=== PATIENT | female | born 1950 | race Caucasian/White ===

== ENCOUNTER → 2016-06-07 | Outpatient (CLI) | payer BC ==
[~2016-06-07] MED LIST: ALBU1AER9 INH; ALPR-411 PO; CARV12.52 PO; CHOL100010 PO; CLR/5 PO; CYAN50TA2 PO; FLUT44AE INH; HYDR25TA4 PO; HYOS1TAB PO; MRC50 PO; NXM/40 PO; SULF500T36 PO
[2016-06-07 16:59] LABS: FERRITIN 28.4 ng/ml (8.0-388.0)
== END | disposition home or self-care (01) ==
LOC: C.LABBC 15:08
PROVIDERS: ATTEND Family Medicine
DX: R71.8 Other abnormality of red blood cells (principal)

== ENCOUNTER → 2016-08-04 | Outpatient (CLI) | payer BC ==
[2016-08-04 11:16] LABS: BLOOD UREA NITROGEN 7 mg/dl (7-18); BUN/CREATININE RATIO 9.4 (10-20); CALCIUM 8.8 mg/dl (8.5-10.1); CARBON DIOXIDE 26 mmol/L (21-32); CHLORIDE 107 mmol/L (98-107); CREATININE 0.72 mg/dl (0.60-1.20); GLUCOSE 114 mg/dl (70-99); SODIUM 141 mmol/L (136-145)
[2016-08-04 11:26] LABS: THYROID STIMULATING HORMONE 0.995 uIu/ml (0.300-4.500)
[2016-08-12 07:48] LABS: O&P SOURCE OTHER-STOOL
== END | disposition home or self-care (01) ==
LOC: C.LABBC 08:18
PROVIDERS: ATTEND Internal Medicine Gastroenterology
DX: K50.90 Crohn's disease, unspecified, without complications (principal); R73.01 Impaired fasting glucose; R53.83 Other fatigue; D70.9 Neutropenia, unspecified

== ENCOUNTER → 2016-08-08 | Outpatient (CLI) | payer BC ==
--- NOTE | 2016-08-08 15:36 | DIAGNOSTIC IMAGING REPORT ---
ULTRASOUND OF THE THYROID GLAND CLINICAL HISTORY: Neck fullness. COMPARISON STUDY: No priors. TECHNIQUE: Real-time, grayscale, and color flow sonography of the thyroid gland is performed utilizing a high-frequency linear transducer. Images are reviewed in the transverse and longitudinal planes. FINDINGS: Right lobe: The right lobe of the thyroid gland is normal in size and homogeneous in echotexture, measuring 4.4 x 1.6 x 1.5 cm. A hypoechoic nodule in the lower pole measures 4 mm. Left lobe: The left lobe of the thyroid gland is normal in size and homogeneous in echotexture, measuring 5.2 x 1.7 x 1.5 cm. A hiatal nodule in the lower pole measures 1.1 x 0.9 x 0.9 cm. Additional hypoechoic nodules in the left lobe measure up to 5 mm. Isthmus: The thyroid isthmus is normal in appearance and measures 0.5 cm in AP diameter. IMPRESSION: 1. The thyroid gland is normal in size and homogeneous in echotexture. 2. Bilateral low suspicion thyroid nodules as above. Precautionary one-year follow-up ultrasound is recommended for reassessment. Electronically signed by: Donell Painter M.D. 08/08/2016 3:35 PM Dictated Date/Time: 08/08/2016 3:34 PM
== END | disposition home or self-care (01) ==
LOC: C.ULTR 14:18
PROVIDERS: ATTEND Family Medicine
DX: R22.1 Localized swelling, mass and lump, neck (principal); E04.2 Nontoxic multinodular goiter

== ENCOUNTER → 2016-12-16 | Outpatient (CLI) | payer BC | END | disposition home or self-care (01) | LOC: C.PAPS 14:15 | PROVIDERS: ATTEND Obstetrics & Gynecology | DX: Z12.4 Encounter for screening for malignant neoplasm of cervix (principal); N95.2 Postmenopausal atrophic vaginitis ==

== ENCOUNTER → 2017-02-02 | Outpatient (CLI) | payer BC ==
--- NOTE | 2017-02-02 15:39 | MAMMOGRAPHY REPORT ---
BILATERAL DIGITAL SCREENING MAMMOGRAM TOMOSYNTHESIS WITH CAD: 02/02/2017 CLINICAL HISTORY: Routine screening. Patient has no complaints. TECHNIQUE: Breast tomosynthesis in addition to standard 2D mammography was performed. Current study was also evaluated with a Computer Aided Detection (CAD) system. COMPARISON: Comparison is made to exams dated: 12/10/2015 mammogram, 10/17/2014 mammogram, 10/16/2013 m ammogram, 02/15/2013 mammogram, 06/25/2012 mammogram, and 06/19/2012 mammogram - [facility] enter. BREAST COMPOSITION: There are scattered areas of fibroglandular density in both breasts. FINDINGS: The parenchymal pattern is unchanged. No developing mass, architectural distortion or clus ter of suspicious microcalcifications is seen in either breast. IMPRESSION: ACR BI-RADS CATEGORY 2: BENIGN There is no mammographic evidence of malignancy. A 1 year screening mammogram is recommended. The pa tient will receive written notification of the results. Approximately 10% of breast cancers are not detected with mammography. A negative mammographic report should not delay biopsy if a clinically suggestive mass is present. Bianca Oviedo M.D. ay/:02/02/2017 12:55:05 Credit Administration Officer: Luann HELLER(Ian)(Susan)(BD), [facility] letter sent: Normal 1/2 BI-RADS Code: ACR BI-RADS Category 2: Benign
== END | disposition home or self-care (01) ==
LOC: C.MAMM 12:29
PROVIDERS: ATTEND Obstetrics & Gynecology
DX: Z12.31 Encounter for screening mammogram for malignant neoplasm of breast (principal)

== ENCOUNTER → 2018-01-05 | Outpatient (CLI) | payer BC ==
[2018-01-05 10:55] LABS: HEMATOCRIT 37.2 % (37-47); MEAN CELL VOLUME 92.1 fL (80-100); MEAN CORPUSCULAR HEMOGLOBIN 29.7 pg (25-34); MEAN CORPUSCULAR HGB CONC 32.3 g/dl (32-36); MEAN PLATELET VOLUME 8.9 fL (7.4-10.4); NUCLEATED RED BLOOD CELL ABS 0.02 K/uL (0-0); PLATELET COUNT 344 K/uL (130-400); RED CELL DISTRIBUTION WIDTH CV 18.7 % (11.5-14.5); RED CELL DISTRIBUTION WIDTH SD 63.3 fL (36.4-46.3); WHITE BLOOD COUNT 6.64 K/uL (4.8-10.8)
[2018-01-05 11:12] LABS: BLOOD UREA NITROGEN 10 mg/dl (7-18); CALCIUM 8.6 mg/dl (8.5-10.1); CARBON DIOXIDE 27 mmol/L (21-32); CHOLESTEROL 168 mg/dl (0-200); CREATININE 0.72 mg/dl (0.60-1.20); GLUCOSE 99 mg/dl (70-99); LDL CHOLESTEROL CALCULATED 107 mg/dl; POTASSIUM 4.2 mmol/L (3.5-5.1); SODIUM 137 mmol/L (136-145)
== END | disposition home or self-care (01) ==
LOC: C.LABBC 08:29
PROVIDERS: ATTEND Family Medicine
DX: Z00.00 Encounter for general adult medical examination without abnormal findings (principal); I10 Essential (primary) hypertension

== ENCOUNTER 2020-05-28 18:05 | Inpatient (IN) ==
[2020-05-28] MEDS ORDERED: OPTIRAY 320 125ml IV ONE (18:32)
[2020-05-28 18:34] LABS: Hematocrit (blood only) 38.3 % (37-47); Hemoglobin 11.7 g/dL (12.0-16.0); Mean Corpuscular Hemoglobin 26.7 pg (25-34); Mean Corpuscular Hgb Conc 30.5 g/dL (32-36); Mean Corpuscular Volume 87.4 fL (80-100); Mean Platelet Volume 8.5 fL (7.4-10.4); Platelet Count 429 K/uL (130-400); RDW Coefficient of Variation 16.4 % (11.5-14.5); RDW Standard Deviation 52.9 fL (36.4-46.3); Red Blood Count 4.38 M/uL (4.2-5.4); White Blood Count 6.34 K/uL (4.8-10.8)
[2020-05-28 18:37] LABS: iSTAT Creatinine 0.7 mg/dl (0.6-1.3); iSTAT Hemoglobin 13.3 g/dl (12.0-16.0); iSTAT Ionized Calcium 1.25 mmol/l (1.12-1.32); iSTAT Potassium 3.7 mmol/L (3.3-5.0)
[2020-05-28 18:45] LABS: INR 1.1 (0.9-1.1); Partial Thromboplastin Ratio 1.1; Partial Thromboplastin Time 31.6 Seconds (21.0-31.0); Prothrombin Time 11.8 Seconds (9.0-12.0)
--- NOTE | 2020-05-28 18:48 | CT Scan Report ---
UNENHANCED CT OF THE BRAIN; CT ANGIOGRAM OF THE BRAIN; CT ANGIOGRAM OF THE NECK CLINICAL HISTORY: Strokelike symptoms. COMPARISON STUDY: CT scan of the paranasal sinuses dated 04/03/2019. TECHNIQUE: Unenhanced axial CT scan of the brain is performed. Subsequently, following the IV adminis tration of 120 of [address] 320, CT angiogram of the head and neck was performed from the aortic arch t o the vertex. Images are reviewed in the axial, sagittal, and coronal planes. 3-D MIPS images are cre ated and assessed. IV contrast was administered without complication. All measurements were calculate d based on NASCET criteria. A dose lowering technique was utilized adhering to the principles of ALA RA. CT DOSE: 1068.80 mGy.cm FINDINGS: Brain parenchyma: The brain parenchyma is normal in appearance. There is no hemorrhage, mass effect, or evidence of acute territorial ischemia by CT criteria. There is no evidence of enhancing mass lesi on on the angiogram phase images. The ventricles, sulci, and cisterns are normal in configuration. Gr ay-white matter differentiation is preserved. No extra-axial fluid collection is seen. Thoracic aorta: There is mild atherosclerotic calcification of the thoracic aorta. Visualized portion s of the thoracic aorta are normal in caliber. The aortic arch demonstrates standard 3-vessel anatomy . Right carotid arterial system: The right common carotid artery is widely patent, as are the right int ernal and external carotid arteries. Left carotid arterial system: The left common carotid artery is widely patent, as are the left international student counselor al and external carotid arteries. Mild plaque is seen in the carotid bulb. Vertebral arteries: The vertebral arteries are widely patent bilaterally and codominant. Subclavian arteries: Widely patent bilaterally. Intracranial vasculature: There is atherosclerotic calcification of the cavernous carotid arteries. T here is a large right posterior communicating artery. The internal carotid arteries are patent at the skull base, as are the anterior and middle cerebral arteries bilaterally. The vertebrobasilar system and posterior cerebral arteries are widely patent. The right P1 segment is diminutive. The vertebral arteries are codominant. There is no aneurysm, high-grade stenosis, or focal vessel cut off seen thr oughout the intracranial circulation. Jugular veins: Patent bilaterally. Dural sinuses: There are filling defects that likely represent nonocclusive thrombus identified withi n the posterior aspect of the superior sagittal sinus, best seen on image #194. There is also likely nonocclusive thrombus within the distal right transverse sinus and the right sigmoid sinus seen on ax ial images #39 through #66. The remaining dural sinuses are clear. Lung apices: Partially visualized upper lobe lung parenchyma appears clear. Soft tissues: The visualized pharyngeal soft tissues are normal in appearance noting angiographic pha se technique. The oropharyngeal airway appears widely patent. Low-attenuation thyroid nodules measure up to 9 mm. The salivary glands are normal in appearance. No cervical lymphadenopathy is seen. Skeletal structures: The skeletal structures are osteopenic. The calvarium appears intact. The cervic al spine is maintained noting multilevel spondylosis. No lytic or blastic lesion is seen. Orbits: The bony orbits are intact. Orbital contents are normal as imaged. Sinuses and mastoids: There is mild mucosal thickening in the right maxillary antrum. Trace mucosal t hickening is seen in the left maxillary antrum. The remaining paranasal sinuses are clear. The mastoi d air cells are well pneumatized. IMPRESSION: 1. There is no hemorrhage, mass effect, or evidence of acute territorial ischemia by CT criteria. 2. Unremarkable CT angiogram of the intracranial arteries. 3. Unremarkable CT angiogram of the neck. 4. There are filling defects within the dorsal aspect of the superior sagittal sinus, the right trans verse sinus, and the right sigmoid sinus which likely represent nonocclusive thrombus. This may be ch ronic as there is apparent recanalization throughout the suspected thrombus. ACT 112: Negative or not required by law. Electronically signed by: Donell Painter M.D. 05/28/2020 6:47 PM
--- NOTE | 2020-05-28 18:49 | Emergency Department Note ---
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 (1.4-6.5) K/uL Total Absolute Neuts (1.4-6.5) K/uL Lymphocytes # (Manual) (1.2-3.4) K/uL Reactive Lymphs # K/uL Total Abs Lymphocytes (1.2-3.4) K/uL Monocytes # (Manual) (0.11-0.59) K/uL Eosinophils # (Manual) (0-0.5) K/uL RBC Morphology PT (9.0-12.0) Seconds INR (0.9-1.1) APTT (21.0-31.0) Seconds PTT Ratio POC Sodium (135-144) mmol/L Sodium (136-145) mmol/L POC Potassium (3.3-5.0) mmol/L Potassium (3.5-5.1) mmol/L POC Chloride (101-112) mmol/L Chloride (98-107) mmol/L Carbon Dioxide (21-32) mmol/L POC Total CO2 (24-31) mmol/L Anion Gap (3-11) POC Anion Gap (16-25) mmol/L POC BUN (7-18) mg/dl BUN (7-18) mg/dl Creatinine (0.6-1.2) mg/dl POC Creatinine (0.6-1.3) mg/dl Est Cr Clr Drug Dosing ml/min Est GFR ( Amer) Est GFR (Non-Af Amer) BUN/Creatinine Ratio (10-20) Glucose (70-99) mg/dl POC Glucose (70-99) mg/dl POC Glucose (other) (70-99) mg/dl Calcium (8.5-10.1) mg/dl POC Ioniz Calcium Deshawn (1.12-1.32) mmol/l Magnesium (1.8-2.4) mg/dl Total Bilirubin (0.2-1) mg/dl AST (15-37) U/L ALT (12-78) U/L Alkaline Phosphatase (45-117) U/L Troponin I (0-0.045) ng/ml Total Protein (6.4-8.2) gm/dl Albumin (3.4-5.0) gm/dl Globulin (2.5-4.0) gm/dl Albumin/Globulin Ratio (0.9-2) SARS-CoV-2 Ag (Rapid) Negative (Negative) Blood Type Antibody Screen Imaging Data Radiologist's Impression: UNENHANCED CT OF THE BRAIN; CT ANGIOGRAM OF THE BRAIN; CT ANGIOGRAM OF THE NECK CLINICAL HISTORY: Strokelike symptoms. COMPARISON STUDY: CT scan of the paranasal sinuses dated 04/03/2019. TECHNIQUE: Unenhanced axial CT scan of the brain is performed. Subsequently, following the IV administration of 120 of Optiray 320, CT angiogram of the head and neck was performed from the aortic arch to the vertex. Images are reviewed in the axial, sagittal, and coronal planes. 3-D MIPS images are created and assessed. IV contrast was administered without complication. All measurements were calculated based on NASCET criteria. A dose lowering technique was utilized adhering to the principles of ALARA. CT DOSE: 1068.80 mGy.cm FINDINGS: Brain parenchyma: The brain parenchyma is normal in appearance. There is no hemorrhage, mass effect, or evidence of acute territorial ischemia by CT criteria. There is no evidence of enhancing mass lesion on the angiogram phase images. The ventricles, sulci, and cisterns are normal in configuration. Reagan- white matter differentiation is preserved. No extra-axial fluid collection is seen. Thoracic aorta: There is mild atherosclerotic calcification of the thoracic aorta. Visualized portions of the thoracic aorta are normal in caliber. The aortic arch demonstrates standard 3-vessel anatomy. Right carotid arterial system: The right common carotid artery is widely patent, as are the right internal and external carotid arteries. Left carotid arterial system: The left common carotid artery is widely patent, as are the left internal and external carotid arteries. Mild plaque is seen in the carotid bulb. Vertebral arteries: The vertebral arteries are widely patent bilaterally and codominant. Subclavian arteries: Widely patent bilaterally. Intracranial vasculature: There is atherosclerotic calcification of the cavernous carotid arteries. There is a large right posterior communicating artery. The internal carotid arteries are patent at the skull base, as are the anterior and middle cerebral arteries bilaterally. The vertebrobasilar system and posterior cerebral arteries are widely patent. The right P1 segment is diminutive. The vertebral arteries are codominant. There is no aneurysm, high- grade stenosis, or focal vessel cut off seen throughout the intracranial circulation. Jugular veins: Patent bilaterally. Dural sinuses: There are filling defects that likely represent nonocclusive thrombus identified within the posterior aspect of the superior sagittal sinus, best seen on image #194. There is also likely nonocclusive thrombus within the distal right transverse sinus and the right sigmoid sinus seen on axial images #39 through #66. The remaining dural sinuses are clear. Lung apices: Partially visualized upper lobe lung parenchyma appears clear. Soft tissues: The visualized pharyngeal soft tissues are normal in appearance noting angiographic phase technique. The oropharyngeal airway appears widely patent. Low-attenuation thyroid nodules measure up to 9 mm. The salivary glands are normal in appearance. No cervical lymphadenopathy is seen. Skeletal structures: The skeletal structures are osteopenic. The calvarium appears intact. The cervical spine is maintained noting multilevel spondylosis. No lytic or blastic lesion is seen. Orbits: The bony orbits are intact. Orbital contents are normal as imaged. Sinuses and mastoids: There is mild mucosal thickening in the right maxillary antrum. Trace mucosal thickening is seen in the left maxillary antrum. The remaining paranasal sinuses are clear. The mastoid air cells are well pneumatized. IMPRESSION: 1. There is no hemorrhage, mass effect, or evidence of acute territorial ischemia by CT criteria. 2. Unremarkable CT angiogram of the intracranial arteries. 3. Unremarkable CT angiogram of the neck. 4. There are filling defects within the dorsal aspect of the superior sagittal sinus, the right transverse sinus, and the right sigmoid sinus which likely represent nonocclusive thrombus. This may be chronic as there is apparent recanalization throughout the suspected thrombus. ACT 112: Negative or not required by law. Electronically signed by: Donell Painter M.D. 05/28/2020 6:47 PM Dictated: 05/28/201830 Transcribed: 05/28/201830 SINGLE VIEW CHEST CLINICAL HISTORY: Strokelike symptoms. FINDINGS: An AP, portable, upright chest radiograph is compared to study dated 11/01/2019 and correlated with chest CT dated 08/07/2018. The heart is top normal for projection. Chronic interstitial thickening is similar to previous. There is mild bibasilar atelectasis. No airspace consolidation or large pleural effusion is identified. No pneumothorax is seen. The skeletal structures are osteopenic. The bony thorax is grossly intact. IMPRESSION: No acute cardiopulmonary abnormality. ACT 112: Negative or not required by law. Electronically signed by: Donell Painter M.D. 05/28/2020 7:09 PM Dictated: 05/28/201907 Transcribed: 05/28/201907 MRI OF THE BRAIN WITHOUT IV CONTRAST CLINICAL HISTORY: Headache. Delirium. COMPARISON STUDY: CT of the brain performed the same day 05/28/2020. TECHNIQUE: MRI of the brain was performed utilizing various T1 and T2-weighted sequences in the axial, sagittal, and coronal planes. IV contrast was not administered for this examination. The examination is degraded by motion artifact. FINDINGS: Brain parenchyma: There is age-related involutional change noting minimal microangiopathic disease. There is no hemorrhage or mass effect. There is no restricted diffusion to suggest acute ischemia. Reagan-white matter differenti ation is preserved. No extra-axial fluid collection is seen. The cerebellar tonsils are normal in configuration. Ventricles, sulci, and cisterns: Prominent secondary to involutional change. Pituitary and sella: Unremarkable. Intracranial vasculature: Normal arterial flow voids are maintained at the skull base. There is loss of normal flow void within the right transverse and sigmoid sinuses. Orbits: The bony orbits are grossly intact. Orbital contents are normal in appearance. Sinuses and mastoids: Mild mucosal thickening is noted in the right maxillary antrum and there is trace mucosal thickening in the left maxillary antrum. The remaining paranasal sinuses and the mastoid air cells are clear. Calvarium: Unremarkable. Cervical cord: Partially visualized cervical spinal cord is normal in morphology and signal intensity. IMPRESSION: 1. There is no hemorrhage, mass effect, or evidence of acute ischemia noting a motion degraded examination. 2. There is loss of the normal flow void within the right transverse and sigmoid sinuses. This likely represents age indeterminant sinus thrombus as detailed on prior examinations. ACT 112: Negative or not required by law. Electronically signed by: Donell Painter M.D. 05/28/2020 9:19 PM Dictated: 05/28/202111Transcribed: 05/28/202111 MR VENOGRAM OF THE BRAIN CLINICAL HISTORY: Headache. Delirium. Sinus thrombosis. COMPARISON STUDY: CT angiogram of the brain dated 05/28/2020. TECHNIQUE: Unenhanced sagittal MR venogram of the brain is performed. 3-D reformats are created and assessed. FINDINGS: There is irregularity seen throughout the superior sagittal sinus, greatest posteriorly. Additionally, there is marked attenuation of the right transverse and sigmoid sinuses. The left transverse sinus and the left sigmoid sinus are clear. The right internal jugular vein is patent. The left internal jugular vein is not well-visualized. IMPRESSION: There is irregularity throughout the superior sagittal sinus and marked attenuation of flow within the right transverse and sigmoid sinuses. This was much better characterized on today's CT angiogram and likely represents thrombus. Chronic thrombus is favored based on the CT findings. Clinical correlation will be essential. Electronically signed by: Donell Painter M.D. 05/28/2020 8:55 PM Dictated: 05/28/202051Transcribed: 05/28/202051 ECG Data Indication: + weakness Rate (beats per minute): 95 Rhythm: + normal sinus ECG Intervals/blocks: + Normal QRS, + Normal CT and + Normal QT-c ECG ST segments: + Normal ST segments [facility] Narrative 1810: The patient was evaluated in room B1. A complete history and physical exam was performed. Based off the patient's H&P differential diagnosis included but was not limited to acute CVA, ICH, carotid artery dissection, vertebral artery dissection, hypertensive encephalopathy, subarachnoid hemorrhage, or acute anxiety. Code stroke called and patient taken to CT. 1842: CT is reviewed by me which showed no large ICH or carotid dissection. Formal radiology reads are pending. Discussed the case with Dr. Margoth adams who will evaluate the patient. 1857: Dr. Painter radiology called and stated that there are filling defects in the dorsal aspect of the superior sagittal sinus, right transverse sinus, and right sigmoid sinus which likely represent a nonocclusive thrombus there is also apparent recanalization through the suspected thrombus. CT of the head showed no mass-effect, hemorrhage, or territorial ischemia in the CT angiogram of the head and neck arteries are within normal limits. 1912: Discussed the CTA findings with Dr. Margoth adams who requests that a MRI brain with and without contrast be conducted in addition to an MRV of the brain. Orders have been placed. Patient is reporting continued headache morphine 2 mg ordered for the patient. Margoth adams says he will evaluate the patient shortly. 2005: Discussed with Dr. Margoth adams who states no TPA at this time. He states he will take a look at the CT angio and MRI images after they are done and we can further discuss if the sinus thromboses are acute or chronic and if any further intervention needs to be done. 2214: Patient remains hypertensive. MRI of the brain is within normal limits. MRV of the brain is more consistent with chronic nonocclusive thrombus as opposed to acute sinus thrombus. I discussed the findings with Rhiquine Weogufka telestroke and both he and I agreed that the patient's symptoms today are not likely due to the chronic thrombus and more likely due to a hypertensive encephalopathy with her hypertension being uncontrolled. No need for anticoagulation of the chronic thrombus per telestroke neurologist. We will try to get a better control of the patient's blood pressure with labetalol boluses. If labetalol boluses are unsuccessful with controlling the patient's blood pressure then we will switch to Cardene. 2346: Blood pressure improved status post multiple boluses of labetalol. We will hold off on Cardene at this point. I discussed the case with Dr. Ma [facility] hospitalist who agrees to admit the patient. Impression & Plan Encephalopathy, hypertensive, Transverse sinus thrombosis Discharge Plan Visit Data Chief Complaint: Headache Stated Complaint: HEAD HURTS, MUSCLE PROBLEMS ED Provider: Guillaume Garza Discharge Problem: Encephalopathy, hypertensive, Transverse sinus thrombosis Patient Disposition: Admitted As Inpatient Forms Stand Alone Forms: [facility] Prescriptions Prescriptions: No Action hydrocortisone 2.5 % cream 1 appln topical DAILY PRN (Reason: itching) Qty: 1 RF: 0 Entyvio 300 mg recon soln See Rx Instructions IV .COMPLEX RF: 0 lansoprazole [Prevacid] 30 mg capsule,delayed release(DR/EC) 30 mg PO QAM Qty: 90 RF: 1 mercaptopurine 50 mg tablet 75 mg PO HS Qty: 135 RF: 1 ondansetron HCl [Zofran] 4 mg tablet 4 mg PO Q8H PRN (Reason: nausea and vomiting) Qty: 30 RF: 1 Breo Ellipta 200-25 mcg/dose blister with device 1 inh INH QAM Qty: 3 RF: 1 albuterol sulfate [ProAir HFA] 90 mcg/actuation HFA aerosol inhaler 1 - 2 puff INHALATION Q4 PRN (Reason: Shortness Of Breath Or Wheezing) Qty: 18 RF: 2 alprazolam [Xanax] 0.5 mg tablet 0.5 mg PO BID PRN (Reason: Anxiety) Qty: 30 RF: 0 carvedilol 12.5 mg tablet 12.5 mg PO BID Qty: 180 RF: 3 sulfamethoxazole-trimethoprim [Bactrim DS] 800-160 mg tablet 1 tab PO BID 5 Days Qty: 10 RF: 1 loratadine [Claritin] 10 mg Tablet 10 mg PO DAILY PRN (Reason: Congestion) RF: 0 cholecalciferol (vitamin D3) [Vitamin D3] 2,000 unit Capsule 2,000 unit PO HS RF: 0 Referrals Referrals: Mar Whitaker MD [Primary Care Provider] -
[2020-05-28 18:53] LABS: Albumin Level 3.5 gm/dl (3.4-5.0); Aspartate Aminotransferase 21 U/L (15-37); BUN Creatinine Ratio 14.9 (10-20); Blood Urea Nitrogen 11 mg/dl (7-18); Calcium 9.2 mg/dl (8.5-10.1); Carbon Dioxide 29 mmol/L (21-32); Chloride 107 mmol/L (98-107); Creatinine Clr Calc Pharmacy 67.4 ml/min; Est GFR (African American) 93.4; Est GFR (Non-African American) 80.6; Glucose 109 mg/dl (70-99); Potassium 3.7 mmol/L (3.5-5.1); Sodium 140 mmol/L (136-145)
[2020-05-28 18:54] LABS: ALC (manual) 3.87 K/uL (1.2-3.4); ANC (manual) 1.63 K/uL (1.4-6.5); Eosinophils # (manual) 0.51 K/uL (0-0.5); Lymphocytes # (manual) 2.07 K/uL (1.2-3.4); Lymphocytes % (manual) 32.7 %; Monocytes # (manual) 0.34 K/uL (0.11-0.59); Monocytes % (manual) 5.3 %; Neutrophils # (manual) 1.63 K/uL (1.4-6.5); Neutrophils % (manual) 25.7 %; RBC Morphology Unremarkable; Reactive Lymphocytes # (manual) 1.79 K/uL; Reactive Lymphocytes % (manual) 28.3 %
[2020-05-28] MEDS ORDERED: MoRPHine SULFATE 2 MG/ML CARP IV STA (18:54)
[2020-05-28] MEDS ORDERED: MoRPHine SULFATE 2 MG/ML CARP ONE (18:56)
[2020-05-28 18:57] LABS: Alanine Aminotransferase 30 U/L (12-78); Albumin Globulin Ratio 0.8 (0.9-2); Alkaline Phosphatase 80 U/L (45-117); Bilirubin,Total 0.4 mg/dl (0.2-1); Globulin 4.3 gm/dl (2.5-4.0); Total Protein 7.8 gm/dl (6.4-8.2); Troponin I < 0.015 ng/ml (0-0.045)
--- NOTE | 2020-05-28 19:11 | XRay Report ---
SINGLE VIEW CHEST CLINICAL HISTORY: Strokelike symptoms. FINDINGS: An AP, portable, upright chest radiograph is compared to study dated 11/01/2019 and correlate d with chest CT dated 08/07/2018. The heart is top normal for projection. Chronic interstitial thicken ing is similar to previous. There is mild bibasilar atelectasis. No airspace consolidation or large p leural effusion is identified. No pneumothorax is seen. The skeletal structures are osteopenic. The b beto thorax is grossly intact. IMPRESSION: No acute cardiopulmonary abnormality. ACT 112: Negative or not required by law. Electronically signed by: Donell Painter M.D. 05/28/2020 7:09 PM
[2020-05-28] MEDS ORDERED: LORazepam 1 MG/2 ML VIAL IV STA ×2 (19:38→21:17)
[2020-05-28] MEDS ORDERED: HYDROmorphone INJ 0.5 MG/0.5 ML SYR IV STA (19:41)
--- NOTE | 2020-05-28 20:56 | Magnetic Resonance Report ---
MR VENOGRAM OF THE BRAIN CLINICAL HISTORY: Headache. Delirium. Sinus thrombosis. COMPARISON STUDY: CT angiogram of the brain dated 05/28/2020. TECHNIQUE: Unenhanced sagittal MR venogram of the brain is performed. 3-D reformats are created and a ssessed. FINDINGS: There is irregularity seen throughout the superior sagittal sinus, greatest posteriorly. Ad ditionally, there is marked attenuation of the right transverse and sigmoid sinuses. The left transve rse sinus and the left sigmoid sinus are clear. The right internal jugular vein is patent. The left i nternal jugular vein is not well-visualized. IMPRESSION: There is irregularity throughout the superior sagittal sinus and marked attenuation of fl ow within the right transverse and sigmoid sinuses. This was much better characterized on today's CT angiogram and likely represents thrombus. Chronic thrombus is favored based on the CT findings. Clini nadine correlation will be essential. Electronically signed by: Donell Painter M.D. 05/28/2020 8:55 PM
[2020-05-28] MEDS ORDERED: LABETALOL HCL IV 5 MG/ML 20ML IV STA ×4 (21:17→22:56)
--- NOTE | 2020-05-28 21:20 | Magnetic Resonance Report ---
MRI OF THE BRAIN WITHOUT IV CONTRAST CLINICAL HISTORY: Headache. Delirium. COMPARISON STUDY: CT of the brain performed the same day 05/28/2020. TECHNIQUE: MRI of the brain was performed utilizing various T1 and T2-weighted sequences in the axial , sagittal, and coronal planes. IV contrast was not administered for this examination. The examinatio n is degraded by motion artifact. FINDINGS: Brain parenchyma: There is age-related involutional change noting minimal microangiopathic disease. T here is no hemorrhage or mass effect. There is no restricted diffusion to suggest acute ischemia. Gra y-white matter differentiation is preserved. No extra-axial fluid collection is seen. The cerebellar tonsils are normal in configuration. Ventricles, sulci, and cisterns: Prominent secondary to involutional change. Pituitary and sella: Unremarkable. Intracranial vasculature: Normal arterial flow voids are maintained at the skull base. There is loss of normal flow void within the right transverse and sigmoid sinuses. Orbits: The bony orbits are grossly intact. Orbital contents are normal in appearance. Sinuses and mastoids: Mild mucosal thickening is noted in the right maxillary antrum and there is tra ce mucosal thickening in the left maxillary antrum. The remaining paranasal sinuses and the mastoid a ir cells are clear. Calvarium: Unremarkable. Cervical cord: Partially visualized cervical spinal cord is normal in morphology and signal intensity . IMPRESSION: 1. There is no hemorrhage, mass effect, or evidence of acute ischemia noting a motion degraded examin ation. 2. There is loss of the normal flow void within the right transverse and sigmoid sinuses. This likely represents age indeterminant sinus thrombus as detailed on prior examinations. ACT 112: Negative or not required by law. Electronically signed by: Donell Painter M.D. 05/28/2020 9:19 PM
[2020-05-28] MEDS ORDERED: ONDANSETRON INJ 2 MG/ML 2 ML VIAL IV STA (21:24)
[2020-05-28] MEDS ORDERED: ASPIRIN CHEW 324 MG PO STA (22:19)
[2020-05-28] MEDS ORDERED: LORazepam 0.5 MG/1 ML VIAL IV STA (23:37)
--- NOTE | 2020-05-28 23:54 | History & Physical Report ---
Date of Service May 28, 2020 Assessment & Plan (1) Encephalopathy, hypertensive: 69yo C female presenting with severe ARIAS, AMS in setting of markedly increased blood pressure. Suspect hypertensive encephalopathy. Patient's initial GCS Score was 15 ( 4 eye, 5 verbal, 6 motor). Slightly worsened during my encounter to GCS of 13 (3 eye, 4 verbal and 6 motor) after receiving multiple doses of Ativan as well as Morphine and Dilaudid. BP improved with administration of IV Labetalol. Goal to decrease BP by 25% of MAP at this time to avoid watershed infarcts BP of 170/90 is acceptable at this time -Admit to PCU -Neuro checks per protocol -Labetalol 10mg IV q 2 hours as needed to maintain target blood pressure -q hourly VS until BP stabilizes -Continue PO Carvedilol -Pain and anxiety management with caution -Tylenol as needed -Fall and aspiration precautions Present on Admission?: Yes (2) Transverse sinus thrombosis: Noted filling defects in the dorsal aspect of the superior sagittal, right transverse and right sigmoid sinus. Thought to be secondary to chronic, nonocclusive thrombus. Code Stroke was initially called in the ER and patient was evaluated by TeleStroke team. Images reviewed and discussed with [facility]. Symptoms not thought to be secondary to chronic venous sinus thrombosis. Anticoagulation not recommended at this time -Continue Neuro checks as above Present on Admission?: Yes (3) Ulcerative colitis: Chronic. -Patient on vedolizumab infusion -Continue Mercaptopurine -Continue Bactrim ppx Present on Admission?: Yes (4) GERD (gastroesophageal reflux disease): Chronic -Continue Prevacid qAM Present on Admission?: Yes (5) Asthma: Chronic. With peripheral eosinophils slightly elevated -Continue Fluticasone/Vilanterol Present on Admission?: Yes (6) Anxiety: Chronic. Patient administered Ativan in ER -Continue Xanax 0.5mg po BID PRN F/E/N - Heplock. Monitor electrolytes. Heart healthy diet with aspiration precautions when mental status improves Ppx - Low risk for DVT Code -Full Dispo - Admit to PCU Present on Admission?: Yes History of Present Illness Chief Complaint: ARIAS Primary Care Provider: Mar Whitaker MD Cathy Byers is a 69yo C female presenting with ARIAS, AMS. Patient has been having ARIAS and muscle pains for the last week. This evening around 1730 she was complaining of a severe headache and was having some difficulty turning on the TV due to confusion. Patient had a headache most of the day today, started after a heated argument with her . She was seen by a chiropracter 2 days ago and had a neck manipulation. On arrival to the ER she was found to be markedly hypertensive at (documented in ER as 278/155) - ranging 175-278 / 89-155. Patient administered IV Labetalol with improvement in BP She is poor historian, confused upon arrival to the ER and somnolent after r eceiving Ativan. History obtained through discussion with ER attending. MRI imaging findings discussed with ER attending and Neurology at [place]. Patient was evaluated by TeleStroke team from [place] prior to admission ER Course: Ativan 1mg, 1mg, 0.5mg IV, Morphine 2mg IV, Dilaudid 0.5mg IV, Labetalol 10mg + 20mg +40mg +60mg IV, Zofran 4mg IV Allergies Allergy/AdvReac Type Severity Reaction Status Date / Time adalimumab [From Humira] Allergy Intermediate RED PATCHES Verified 05/28/20 19:02 ciprofloxacin Allergy Intermediate RASH Verified 05/28/20 19:02 codeine Allergy Intermediate HEART Verified 05/28/20 19:02 PALPATATIONS infliximab Allergy Intermediate RED Verified 05/28/20 19:02 BLOCHES ON CHEST nitrofurantoin Allergy Intermediate VASCULITIS--TOLD Verified 05/28/20 19:02 [From Macrodantin] NOT TO TAKE AGAIN. adhesive AdvReac Mild SORE RED Verified 05/28/20 19:02 SKIN losartan AdvReac Mild COUGH Verified 05/28/20 19:02 lisinopril AdvReac Unknown Cough Verified 05/07/20 12:25 Home Medications Medication Instructions Recorded Confirmed Type cholecalciferol (vitamin D3) 2,000 unit PO HS 08/07/18 05/28/20 History [Vitamin D3] loratadine [Claritin] 10 mg PO DAILY PRN 08/07/18 05/28/20 History hydrocortisone 2.5 % topical cream 1 appln TOPICAL DAILY PRN #1 gm 02/11/19 05/28/20 History alprazolam 0.5 mg tablet 0.5 mg PO BID PRN #30 tab 03/06/20 12/31/20 Rx vedolizumab 300 mg intravenous See Rx Instructions IV .COMPLEX 10/09/19 05/28/20 History solution lansoprazole 30 mg capsule,delayed 30 mg PO QAM #90 cap 11/14/19 05/28/20 Rx release mercaptopurine 50 mg tablet 75 mg PO HS #135 tab 11/14/19 05/28/20 Rx ondansetron HCl 4 mg tablet 4 mg PO Q8H PRN #30 tab 12/11/19 05/28/20 Rx carvedilol 12.5 mg tablet 12.5 mg PO BID #180 tab 01/15/20 05/28/20 Rx fluticasone furoate 200 1 inh INH QAM #3 inhaler 02/17/20 05/28/20 Rx mcg-vilanterol 25 mcg/dose inhalation powder albuterol sulfate 90 mcg/actuation 1 - 2 puff INHALATION Q4 PRN #18 g 04/17/20 05/28/20 Rx aerosol inhaler sulfamethoxazole 800 1 tab PO BID 5 Days #10 tab 05/24/20 05/28/20 Rx mg-trimethoprim 160 mg tablet Past Med/Surg History Medical History Anxiety Asthma Erythema nodosum GERD (gastroesophageal reflux disease) Hypertension Impaired fasting glucose Iron deficiency anemia Leukocytoclastic vasculitis Osteoporosis Paroxysmal supraventricular tachycardia Squamous cell carcinoma Ulcerative colitis Vitamin D deficiency Surgical History H/O removal of cyst Right breast History of colonoscopy History of dilatation and curettage History of esophagogastroduodenoscopy (EGD) History of tonsillectomy S/P knee surgery Right knee S/P laparoscopic hysterectomy Status post Mohs surgery Family History Unknown Cancer Father Esophageal cancer Transient ischemic attack Pulmonary embolism Brother Prostate cancer Mother Hypertension Sister FH: breast cancer in first degree relative Denies family history of Ovarian cancer Myocardial infarction Breast cancer Colorectal cancer Social History Smoking Status: Never smoker Tobacco Type: Cigarettes Cigarettes Per Day: 1984; Second Hand Exposure: No; Do You Dip or Chew Tobacco: No; Tobacco Cessation Education Requested by Patient: No Hx Alcohol Use: No Hx Substance Use: No Preferred Language: Kyrgyz Communication Ability: Impaired Communication Ability Comment: Patient sleepy and not compliant Visual Impairment: Limited Hearing Ability: Normal 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 Beliefs That Will Affect Care: None marital status: Current Living Situation: Spouse current occupational status: retired Other Information That Helps Us Care for You: No Feels Safe at Home: Yes Safety Concerns: Feels Safe At This Time Childhood Exposure to Second-Hand Smoke: No caffeine: Yes during the past year weight has: remained stable Dental Care, Regularly: Yes Physical Activity Frequency: 3-4 Times per Week Seatbelt Use: always Sunscreen Use: Yes Assistive Devices: Contacts Review of Systems Review of Systems: Unobtainable due to reduced consciousness Physical Exam Physical Exam: General: patient somnolent, arousable, opens eyes to verbal command and tactile stimuli, follows simple commands then drifts back to sleep, nontoxic Skin: warm, dry, intact, no rashes or lesions HEENT: NC/AT, PERRL, anicteric sclera, conjunctiva without injection, external ear normal to inspection and nontender, nares patent, moist mucus membranes, dentition intact, no oropharyngeal lesions, neck supple, trachea midline, no LAD, no thyromegaly, no JVD, no papilledema appreciated on limited bedside fundoscopic exam Heart: +S1/S2, regular, no m/r/g Lungs: equal air entry bilaterally, no rales/rhonchi/wheezes Abd: +BS, soft, NT/ND, no masses/organomegaly/ascites Ext: warm, 2+ pulses in UE/LE bilaterally, no clubbing/cyanosis or edema Neuro: somnolent, arousable to verbal and tactile stimuli, able to state name, follows simple commands, moves all extremities Results & Data Results & Data ([facility]) Vital Signs (Past 12 Hours) Vital Signs Temp Pulse Pulse Resp BP BP Pulse Ox 05/28/20 23:48 88 16 179/101 H 98 05/28/20 23:08 76 16 180/76 H 98 05/28/20 22:46 76 20 99 05/28/20 22:45 73 15 223/98 H 99 05/28/20 22:31 72 14 98 05/28/20 22:30 74 15 212/101 H 99 05/28/20 22:21 205/100 H 05/28/20 22:20 76 15 205/100 H 96 05/28/20 22:15 73 18 90 05/28/20 22:03 70 15 229/103 H 90 05/28/20 22:00 77 15 05/28/20 21:46 71 14 92 05/28/20 21:45 71 14 211/98 H 93 05/28/20 21:31 74 13 93 05/28/20 21:30 71 14 212/99 H 95 05/28/20 21:17 76 17 93 05/28/20 21:16 74 16 205/92 H 93 05/28/20 21:15 82 14 94 05/28/20 21:12 75 15 212/169 H 92 05/28/20 21:09 73 17 05/28/20 20:16 73 17 220/102 H 92 05/28/20 20:15 68 17 93 05/28/20 20:01 69 18 95 05/28/20 20:00 63 13 231/116 H 92 05/28/20 19:54 67 15 228/106 H 92 05/28/20 19:46 78 224/106 H 95 05/28/20 19:45 76 95 05/28/20 19:31 77 15 219/113 H 95 05/28/20 19:30 77 18 94 05/28/20 19:16 82 22 227/110 H 96 05/28/20 19:15 82 22 95 05/28/20 19:01 86 17 228/124 H 96 05/28/20 19:00 86 15 96 05/28/20 18:46 87 18 210/127 H 05/28/20 18:45 89 23 05/28/20 18:32 91 H 225/135 H 97 05/28/20 18:31 91 H 05/28/20 18:18 95 H 278/155 H 05/28/20 18:06 37.4 C 109 H 19 215/130 H 95 Laboratory Results Lab Results 05/28/20 05/28/20 05/28/20 Range/Units 18:20 18:23 18:23 WBC 6.34 (4.8-10.8) K/uL RBC 4.38 (4.2-5.4) M/uL Hgb 11.7 L (12.0-16.0) g/dL POC Hgb (12.0-16.0) g/dl Hct 38.3 (37-47) % POC Hct (37-47) % MCV 87.4 (80-100) fL MCH 26.7 (25-34) pg MCHC 30.5 L (32-36) g/dL RDW Std Deviation 52.9 H (36.4-46.3) fL RDW Coeff of Isiah 16.4 H (11.5-14.5) % Plt Count 429 H (130-400) K/uL MPV 8.5 (7.4-10.4) fL Neutrophils % (Manual) 25.7 % Lymphocytes % (Manual) 32.7 % Reactive Lymphs % (Man) 28.3 % Monocytes % (Manual) 5.3 % Eosinophils % (Manual) 8.0 % Neutrophils # (Manual) 1.63 (1.4-6.5) K/uL Total Absolute Neuts 1.63 (1.4-6.5) K/uL Lymphocytes # (Manual) 2.07 (1.2-3.4) K/uL Reactive Lymphs # 1.79 K/uL Total Abs Lymphocytes 3.87 H (1.2-3.4) K/uL Monocytes # (Manual) 0.34 (0.11-0.59) K/uL Eosinophils # (Manual) 0.51 H (0-0.5) K/uL RBC Morphology Unremarkable PT 11.8 (9.0-12.0) Seconds INR 1.1 (0.9-1.1) APTT 31.6 H (21.0-31.0) Seconds PTT Ratio 1.1 POC Sodium (135-144) mmol/L Sodium (136-145) mmol/L POC Potassium (3.3-5.0) mmol/L Potassium (3.5-5.1) mmol/L POC Chloride (101-112) mmol/L Chloride (98-107) mmol/L Carbon Dioxide (21-32) mmol/L POC Total CO2 (24-31) mmol/L Anion Gap (3-11) POC Anion Gap (16-25) mmol/L POC BUN (7-18) mg/dl BUN (7-18) mg/dl Creatinine (0.6-1.2) mg/dl POC Creatinine (0.6-1.3) mg/dl Est Cr Clr Drug Dosing ml/min Est GFR ( Amer) Est GFR (Non-Af Amer) BUN/Creatinine Ratio (10-20) Glucose (70-99) mg/dl POC Glucose 111 H (70-99) mg/dl POC Glucose (other) (70-99) mg/dl Calcium (8.5-10.1) mg/dl POC Ioniz Calcium Deshawn (1.12-1.32) mmol/l Magnesium (1.8-2.4) mg/dl Total Bilirubin (0.2-1) mg/dl AST (15-37) U/L ALT (12-78) U/L Alkaline Phosphatase (45-117) U/L Troponin I (0-0.045) ng/ml Total Protein (6.4-8.2) gm/dl Albumin (3.4-5.0) gm/dl Globulin (2.5-4.0) gm/dl Albumin/Globulin Ratio (0.9-2) SARS-CoV-2 Ag (Rapid) (Negative) Blood Type Antibody Screen 05/28/20 05/28/20 05/28/20 Range/Units 18:23 18:24 18:34 WBC (4.8-10.8) K/uL RBC (4.2-5.4) M/uL Hgb (12.0-16.0) g/dL POC Hgb 13.3 (12.0-16.0) g/dl Hct (37-47) % POC Hct 39 (37-47) % MCV (80-100) fL MCH (25-34) pg MCHC (32-36) g/dL RDW Std Deviation (36.4-46.3) fL RDW Coeff of Isiah (11.5-14.5) % Plt Count (130-400) K/uL MPV (7.4-10.4) fL Neutrophils % (Manual) % Lymphocytes % (Manual) % Reactive Lymphs % (Man) % Monocytes % (Manual) % Eosinophils % (Manual) % Neutrophils # (Manual) (1.4-6.5) K/uL Total Absolute Neuts (1.4-6.5) K/uL Lymphocytes # (Manual) (1.2-3.4) K/uL Reactive Lymphs # K/uL Total Abs Lymphocytes (1.2-3.4) K/uL Monocytes # (Manual) (0.11-0.59) K/uL Eosinophils # (Manual) (0-0.5) K/uL RBC Morphology PT (9.0-12.0) Seconds INR (0.9-1.1) APTT (21.0-31.0) Seconds PTT Ratio POC Sodium 141 (135-144) mmol/L Sodium 140 (136-145) mmol/L POC Potassium 3.7 (3.3-5.0) mmol/L Potassium 3.7 (3.5-5.1) mmol/L POC Chloride 103 (101-112) mmol/L Chloride 107 (98-107) mmol/L Carbon Dioxide 29 (21-32) mmol/L POC Total CO2 29 (24-31) mmol/L Anion Gap 4.0 (3-11) POC Anion Gap 14.0 L (16-25) mmol/L POC BUN 11 (7-18) mg/dl BUN 11 (7-18) mg/dl Creatinine 0.76 (0.6-1.2) mg/dl POC Creatinine 0.7 (0.6-1.3) mg/dl Est Cr Clr Drug Dosing 67.4 ml/min Est GFR ( Amer) 93.4 Est GFR (Non-Af Amer) 80.6 BUN/Creatinine Ratio 14.9 (10-20) Glucose 109 H (70-99) mg/dl POC Glucose (70-99) mg/dl POC Glucose (other) 112 H (70-99) mg/dl Calcium 9.2 (8.5-10.1) mg/dl POC Ioniz Calcium Deshawn 1.25 (1.12-1.32) mmol/l Magnesium 2.0 (1.8-2.4) mg/dl Total Bilirubin 0.4 (0.2-1) mg/dl AST 21 (15-37) U/L ALT 30 (12-78) U/L Alkaline Phosphatase 80 (45-117) U/L Troponin I < 0.015 (0-0.045) ng/ml Total Protein 7.8 (6.4-8.2) gm/dl Albumin 3.5 (3.4-5.0) gm/dl Globulin 4.3 H (2.5-4.0) gm/dl Albumin/Globulin Ratio 0.8 L (0.9-2) SARS-CoV-2 Ag (Rapid) (Negative) Blood Type A Negative Antibody Screen NEGATIVE 05/28/20 Range/Units Unknown WBC (4.8-10.8) K/uL RBC (4.2-5.4) M/uL Hgb (12.0-16.0) g/dL POC Hgb (12.0-16.0) g/dl Hct (37-47) % POC Hct (37-47) % MCV (80-100) fL MCH (25-34) pg MCHC (32-36) g/dL RDW Std Deviation (36.4-46.3) fL RDW Coeff of Isiah (11.5-14.5) % Plt Count (130-400) K/uL MPV (7.4-10.4) fL Neutrophils % (Manual) % Lymphocytes % (Manual) % Reactive Lymphs % (Man) % Monocytes % (Manual) % Eosinophils % (Manual) % Neutrophils # (Manual) (1.4-6.5) K/uL Total Absolute Neuts (1.4-6.5) K/uL Lymphocytes # (Manual) (1.2-3.4) K/uL Reactive Lymphs # K/uL Total Abs Lymphocytes (1.2-3.4) K/uL Monocytes # (Manual) (0.11-0.59) K/uL Eosinophils # (Manual) (0-0.5) K/uL RBC Morphology PT (9.0-12.0) Seconds INR (0.9-1.1) APTT (21.0-31.0) Seconds PTT Ratio POC Sodium (135-144) mmol/L Sodium (136-145) mmol/L POC Potassium (3.3-5.0) mmol/L Potassium (3.5-5.1) mmol/L POC Chloride (101-112) mmol/L Chloride (98-107) mmol/L Carbon Dioxide (21-32) mmol/L POC Total CO2 (24-31) mmol/L Anion Gap (3-11) POC Anion Gap (16-25) mmol/L POC BUN (7-18) mg/dl BUN (7-18) mg/dl Creatinine (0.6-1.2) mg/dl POC Creatinine (0.6-1.3) mg/dl Est Cr Clr Drug Dosing ml/min Est GFR ( Amer) Est GFR (Non-Af Amer) BUN/Creatinine Ratio (10-20) Glucose (70-99) mg/dl POC Glucose (70-99) mg/dl POC Glucose (other) (70-99) mg/dl Calcium (8.5-10.1) mg/dl POC Ioniz Calcium Deshawn (1.12-1.32) mmol/l Magnesium (1.8-2.4) mg/dl Total Bilirubin (0.2-1) mg/dl AST (15-37) U/L ALT (12-78) U/L Alkaline Phosphatase (45-117) U/L Troponin I (0-0.045) ng/ml Total Protein (6.4-8.2) gm/dl Albumin (3.4-5.0) gm/dl Globulin (2.5-4.0) gm/dl Albumin/Globulin Ratio (0.9-2) SARS-CoV-2 Ag (Rapid) Negative (Negative) Blood Type Antibody Screen Diagnostic Findings SINGLE VIEW CHEST CLINICAL HISTORY: Strokelike symptoms. FINDINGS: An AP, portable, upright chest radiograph is compared to study dated 11/01/2019 and correlated with chest CT dated 08/07/2018. The heart is top normal for projection. Chronic interstitial thickening is similar to previous. There is mild bibasilar atelectasis. No airspace consolidation or large pleural effusion is identified. No pneumothorax is seen. The skeletal structures are osteopenic. The bony thorax is grossly intact. IMPRESSION: No acute cardiopulmonary abnormality. ACT 112: Negative or not required by law. Electronically signed by: Donell Painter M.D. 05/28/2020 7:09 PM Dictated: 05/28/201907Transcribed: 05/28/201907 UNENHANCED CT OF THE BRAIN; CT ANGIOGRAM OF THE BRAIN; CT ANGIOGRAM OF THE NECK CLINICAL HISTORY: Strokelike symptoms. COMPARISON STUDY: CT scan of the paranasal sinuses dated 04/03/2019. TECHNIQUE: Unenhanced axial CT scan of the brain is performed. Subsequently, following the IV administration of 120 of Optiray 320, CT angiogram of the head and neck was performed from the aortic arch to the vertex. Images are reviewed in the axial, sagittal, and coronal planes. 3-D MIPS images are created and assessed. IV contrast was administered without complication. All measurements were calculated based on NASCET criteria. A dose lowering technique was utilized adhering to the principles of ALARA. CT DOSE: 1068.80 mGy.cm FINDINGS: Brain parenchyma: The brain parenchyma is normal in appearance. There is no hemorrhage, mass effect, or evidence of acute territorial ischemia by CT criteria. There is no evidence of enhancing mass lesion on the angiogram phase images. The ventricles, sulci, and cisterns are normal in configuration. Reagan- white matter differentiation is preserved. No extra-axial fluid collection is seen. Thoracic aorta: There is mild atherosclerotic calcification of the thoracic aorta. Visualized portions of the thoracic aorta are normal in caliber. The aortic arch demonstrates standard 3-vessel anatomy. Right carotid arterial system: The right common carotid artery is widely patent, as are the right internal and external carotid arteries. Left carotid arterial system: The left common carotid artery is widely patent, as are the left internal and external carotid arteries. Mild plaque is seen in the carotid bulb. Vertebral arteries: The vertebral arteries are widely patent bilaterally and codominant. Subclavian arteries: Widely patent bilaterally. Intracranial vasculature: There is atherosclerotic calcification of the cavernous carotid arteries. There is a large right posterior communicating artery. The internal carotid arteries are patent at the skull base, as are the anterior and middle cerebral arteries bilaterally. The vertebrobasilar system and posterior cerebral arteries are widely patent. The right P1 segment is diminutive. The vertebral arteries are codominant. There is no aneurysm, high- grade stenosis, or focal vessel cut off seen throughout the intracranial circulation. Jugular veins: Patent bilaterally. Dural sinuses: There are filling defects that likely represent nonocclusive thrombus identified within the posterior aspect of the superior sagittal sinus, best seen on image #194. There is also likely nonocclusive thrombus within the distal right transverse sinus and the right sigmoid sinus seen on axial images #39 through #66. The remaining dural sinuses are clear. Lung apices: Partially visualized upper lobe lung parenchyma appears clear. Soft tissues: The visualized pharyngeal soft tissues are normal in appearance noting angiographic phase technique. The oropharyngeal airway appears widely patent. Low-attenuation thyroid nodules measure up to 9 mm. The salivary glands are normal in appearance. No cervical lymphadenopathy is seen. Skeletal structures: The skeletal structures are osteopenic. The calvarium appears intact. The cervical spine is maintained noting multilevel spondylosis. No lytic or blastic lesion is seen. Orbits: The bony orbits are intact. Orbital contents are normal as imaged. Sinuses and mastoids: There is mild mucosal thickening in the right maxillary antrum. Trace mucosal thickening is seen in the left maxillary antrum. The remaining paranasal sinuses are clear. The mastoid air cells are well pneumatized. IMPRESSION: 1. There is no hemorrhage, mass effect, or evidence of acute territorial ischemia by CT criteria. 2. Unremarkable CT angiogram of the intracranial arteries. 3. Unremarkable CT angiogram of the neck. 4. There are filling defects within the dorsal aspect of the superior sagittal sinus, the right transverse sinus, and the right sigmoid sinus which likely represent nonocclusive thrombus. This may be chronic as there is apparent recanalization throughout the suspected thrombus. ACT 112: Negative or not required by law. Electronically signed by: Donell Painter M.D. 05/28/2020 6:47 PM Dictated: 05/28/201830Transcribed: 05/28/[address] OF THE BRAIN; CT ANGIOGRAM OF THE BRAIN; CT ANGIOGRAM OF THE NECK CLINICAL HISTORY: Strokelike symptoms. COMPARISON STUDY: CT scan of the paranasal sinuses dated 04/03/2019. TECHNIQUE: Unenhanced axial CT scan of the brain is performed. Subsequently, following the IV administration of 120 of Optiray 320, CT angiogram of the head and neck was performed from the aortic arch to the vertex. Images are reviewed in the axial, sagittal, and coronal planes. 3-D MIPS images are created and assessed. IV contrast was administered without complication. All measurements were calculated based on NASCET criteria. A dose lowering technique was utilized adhering to the principles of ALARA. CT DOSE: 1068.80 mGy.cm FINDINGS: Brain parenchyma: The brain parenchyma is normal in appearance. There is no hemorrhage, mass effect, or evidence of acute territorial ischemia by CT c riteria. There is no evidence of enhancing mass lesion on the angiogram phase images. The ventricles, sulci, and cisterns are normal in configuration. Reagan- white matter differentiation is preserved. No extra-axial fluid collection is seen. Thoracic aorta: There is mild atherosclerotic calcification of the thoracic aorta. Visualized portions of the thoracic aorta are normal in caliber. The aortic arch demonstrates standard 3-vessel anatomy. Right carotid arterial system: The right common carotid artery is widely patent, as are the right internal and external carotid arteries. Left carotid arterial system: The left common carotid artery is widely patent, as are the left internal and external carotid arteries. Mild plaque is seen in the carotid bulb. Vertebral arteries: The vertebral arteries are widely patent bilaterally and codominant. Subclavian arteries: Widely patent bilaterally. Intracranial vasculature: There is atherosclerotic calcification of the cavernous carotid arteries. There is a large right posterior communicating artery. The internal carotid arteries are patent at the skull base, as are the anterior and middle cerebral arteries bilaterally. The vertebrobasilar system and posterior cerebral arteries are widely patent. The right P1 segment is diminutive. The vertebral arteries are codominant. There is no aneurysm, high- grade stenosis, or focal vessel cut off seen throughout the intracranial circulation. Jugular veins: Patent bilaterally. Dural sinuses: There are filling defects that likely represent nonocclusive thrombus identified within the posterior aspect of the superior sagittal sinus, best seen on image #194. There is also likely nonocclusive thrombus within the distal right transverse sinus and the right sigmoid sinus seen on axial images #39 through #66. The remaining dural sinuses are clear. Lung apices: Partially visualized upper lobe lung parenchyma appears clear. Soft tissues: The visualized pharyngeal soft tissues are normal in appearance noting angiographic phase technique. The oropharyngeal airway appears widely patent. Low-attenuation thyroid nodules measure up to 9 mm. The salivary glands are normal in appearance. No cervical lymphadenopathy is seen. Skeletal structures: The skeletal structures are osteopenic. The calvarium appears intact. The cervical spine is maintained noting multilevel spondylosis. No lytic or blastic lesion is seen. Orbits: The bony orbits are intact. Orbital contents are normal as imaged. Sinuses and mastoids: There is mild mucosal thickening in the right maxillary antrum. Trace mucosal thickening is seen in the left maxillary antrum. The remaining paranasal sinuses are clear. The mastoid air cells are well pneumatized. IMPRESSION: 1. There is no hemorrhage, mass effect, or evidence of acute territorial ischemia by CT criteria. 2. Unremarkable CT angiogram of the intracranial arteries. 3. Unremarkable CT angiogram of the neck. 4. There are filling defects within the dorsal aspect of the superior sagittal sinus, the right transverse sinus, and the right sigmoid sinus which likely represent nonocclusive thrombus. This may be chronic as there is apparent recanalization throughout the suspected thrombus. ACT 112: Negative or not required by law. Electronically signed by: Donell Painter M.D. 05/28/2020 6:47 PM Dictated: 05/28/201830Transcribed: 05/28/201830 ========= MR VENOGRAM OF THE BRAIN CLINICAL HISTORY: Headache. Delirium. Sinus thrombosis. COMPARISON STUDY: CT angiogram of the brain dated 05/28/2020. TECHNIQUE: Unenhanced sagittal MR venogram of the brain is performed. 3-D reformats are created and assessed. FINDINGS: There is irregularity seen throughout the superior sagittal sinus, greatest posteriorly. Additionally, there is marked attenuation of the right transverse and sigmoid sinuses. The left transverse sinus and the left sigmoid sinus are clear. The right internal jugular vein is patent. The left internal jugular vein is not well-visualized. IMPRESSION: There is irregularity throughout the superior sagittal sinus and marked attenuation of flow within the right transverse and sigmoid sinuses. This was much better characterized on today's CT angiogram and likely represents thrombus. Chronic thrombus is favored based on the CT findings. Clinical correlation will be essential. Electronically signed by: Donell Painter M.D. 05/28/2020 8:55 PM Dictated: 05/28/202051Transcribed: 05/28/202051 MRI OF THE BRAIN WITHOUT IV CONTRAST CLINICAL HISTORY: Headache. Delirium. COMPARISON STUDY: CT of the brain performed the same day 05/28/2020. TECHNIQUE: MRI of the brain was performed utilizing various T1 and T2-weighted sequences in the axial, sagittal, and coronal planes. IV contrast was not administered for this examination. The examination is degraded by motion artifact. FINDINGS: Brain parenchyma: There is age-related involutional change noting minimal microangiopathic disease. There is no hemorrhage or mass effect. There is no r estricted diffusion to suggest acute ischemia. Reagan-white matter differentiation is preserved. No extra-axial fluid collection is seen. The cerebellar tonsils are normal in configuration. Ventricles, sulci, and cisterns: Prominent secondary to involutional change. Pituitary and sella: Unremarkable. Intracranial vasculature: Normal arterial flow voids are maintained at the skull base. There is loss of normal flow void within the right transverse and sigmoid sinuses. Orbits: The bony orbits are grossly intact. Orbital contents are normal in appearance. Sinuses and mastoids: Mild mucosal thickening is noted in the right maxillary antrum and there is trace mucosal thickening in the left maxillary antrum. The remaining paranasal sinuses and the mastoid air cells are clear. Calvarium: Unremarkable. Cervical cord: Partially visualized cervical spinal cord is normal in morphology and signal intensity. IMPRESSION: 1. There is no hemorrhage, mass effect, or evidence of acute ischemia noting a motion degraded examination. 2. There is loss of the normal flow void within the right transverse and sigmoid sinuses. This likely represents age indeterminant sinus thrombus as detailed on prior examinations. ACT 112: Negative or not required by law. Electronically signed by: Donell Painter M.D. 05/28/2020 9:19 PM Dictated: 05/28/202111Transcribed: 05/28/202111 PG Care Time/CCT Total # of Minutes Spent Total Time Spent with Patient: Total time spent is greater than 50% in coordination of care (as documented) at patient's floor/unit and/or counseling patient: Coding Level of Care Code 90581 Initial Inpt Care Lvl 3 Diagnoses Encephalopathy, hypertensive I67.4 Transverse sinus thrombosis G08 Ulcerative colitis K51.90 Ulcerative colitis location: unspecified ulcerative colitis location Digestive disease complication type: without complication GERD (gastroesophageal reflux disease) K21.9 Esophagitis presence: esophagitis presence not specified Asthma J45.909 Asthma complication type: unspecified Asthma persistence: unspecified Asthma severity: unspecified severity Anxiety F41.9 (1) Ulcerative colitis Ulcerative colitis location: unspecified ulcerative colitis location Digestive disease complication type: without complication Qualified Code(s): K51.90 - Ulcerative colitis, unspecified, without complications (2) GERD (gastroesophageal reflux disease) Esophagitis presence: esophagitis presence not specified Qualified Code(s): K21.9 - Gastro-esophageal reflux disease without esophagitis (3) Asthma Asthma complication type: unspecified Asthma persistence: unspecified Asthma severity: unspecified severity Qualified Code(s): J45.909 - Unspecified asthma, uncomplicated
[2020-05-29] MEDS ORDERED: ONDANSETRON INJ 2 MG/ML 2 ML VIAL IV PRN (00:55)
[2020-05-29] MEDS ORDERED: ACETAMINOPHEN 325 MG TAB PO PRN (00:55)
[2020-05-29] MEDS: carvediloL 12.5 MG TAB PO SCH ×2 (02:08→09:07)
[2020-05-29] MEDS: LABETALOL HCL IV 5 MG/ML 20ML IV PRN ×2 (06:23→12:17)
[2020-05-29] MEDS: LANSOPRAZOLE 30 MG SOLTAB PO SCH (09:07)
[2020-05-29] MEDS: SULFAMETHOXAZOLE/TRIMETHOPRIM DS 800/160MG TAB PO SCH ×2 (09:07→20:29)
[2020-05-29] MEDS: FLUTICASONE/VILANTEROL 200/25MCG 14 PUFFS/INHALER INH SCH (09:07)
--- NOTE | 2020-05-29 11:01 | Hospitalist Progress Note ---
Date of Service May 29, 2020 Assessment & Plan (1) Encephalopathy, hypertensive: Cathy Goodson is a 69yo female with HTN and ulcerative colitis who presented to the ED with altered mental status and hypertensive emergency. Patient was found to have new focal neurologic deficits on exam in the morning, with CT, CTA, and MRI workup concerning for ischemic stroke vs PRES. Patient is covid negative. Altered mental status, hypertensive emergency, new neurologic deficits 05/28/2020: -BP in ED ranging from 175-278/89-115 -brought under control with IV labetalol -per admission note, GCS in ED worsened from 15 (4 eye opening, 5 verbal, 6 motor) to 13 (3 eye opening, 4 verbal, 6 motor) after ativan, morphine, and dilauded administration -CT head, CTA head, CTA neck: there is no hemorrhage, mass effect, or evidence of acute territorial ischemia by CT criteria, unremarkable CT angiogram of the intracranial arteries, unremarkable CT angiogram of the neck, there are filling defects within the dorsal aspect of the superior sagittal sinus, the right transverse sinus, and the right sigmoid sinus which likely represent nonocclusive thrombus. This may be chronic as there is apparent recanalization throughout the suspected thrombus. -MR venography head/brain: There is irregularity throughout the superior sagittal sinus and marked attenuation of flow within the right transverse and sigmoid sinuses. This was much better characterized on today's CT angiogram and likely represents thrombus. Chronic thrombus is favored based on the CT findings. Clinical correlation will be essential. 05/29/2020: -on exam today, patient had further worsened to GCS of 11 (see HPI) -at time of physical exam, 11-12 hours had elapsed from most recent opiate or benzodiazepine administration -ordered CT head, CTA head, and MRI brain; patient required ativan 1mg IV to tolerate CTA head, then an additional ativan 1mg IV to tolerate MRI -CT head: Patchy hypodensities within the left posterior frontal lobe and left parietal lobe which are new from the prior study. These likely represent acute left MCA territory infarcts. -CTA head: Left frontoparietal hypodensities are again noted and are suggestive of acute infarct. This could be due to a distal left MCA territory infarct or possibly a venous infarct given the slight progression of the acute on chronic dural venous sinus thrombosis as described above. -MRI brain: Mild mucosal thickening is noted in the right maxillary antrum and there is trace mucosal thickening in the left maxillary antrum. The remaining paranasal sinuses and the mastoid air cells are clear. -discussed with Dr. Sifuentes (neurology): imaging favors PRES over acute infarct, recommended keeping SBP<160, ideally between 140 and 160, and recommended nicardipine gtt instead of prn antihypertensives -transferred to ICU (with PCU status) due to inability of medical floor to administer nicardipine gtt -nicardipine gtt with a goal of SPB 140-160 -holding home carvedilol -neuro checks q2h -seizure precautions -patient likely does not require antiepileptics today (05/29), as she has received 2mg ativan (just prior to CTA head and MRI brain on 05/29) -if patient becomes seizes or becomes agitated, consider keppra 1g loading dose, then keppra 1g bid -seizure workup starting 05/30 as differential still includes ischemic stroke: -tPA not administered; changes in neuro exam discovered far beyond tPA therapeutic window -ASA 81mg qd, consider plavix -atorvastatin 80mg qd - indicated regardless of LDL level due to history of HTN -A1c, lipid panel -head of bed flat -supplemental oxygen prn, titrate to O2 sat >94% -tight glucose control 80-130 -aspiration precautions -NPO -LR @ 100mL/hr to avoid inadvertent hypotension; bolus prn -use anxiety and pain control with caution Venous sinus thrombosis -seen best on imaging from 05/28 -admitting physician discussed with [facility]: symptoms not thought to be secondary to chronic venous sinus thrombosis -currently not on anticoagulation - weighing risks vs benefits - if this is PRES, hemorrhage is more common in PRES patients on therapeutic anticoagulation -INR 1.1 -continue neuro checks as above Ulcerative colitis -patient on vedolizumab infusion -c/w mercaptopurine -c/w bactrim ppx Anxiety -alprazolam 0.5mg bid prn to be used with caution Asthma -c/w fluticasone/vilanterol GERD -c/w prevacid qAM FENGI: LR@100mL/hr, heart healthy diet when mental status improves DVT ppx: held; see above Code status: full Dispo: in ICU bed with PCU status (due to need for nicardipine gtt) (2) Transverse sinus thrombosis: (3) Ulcerative colitis: (4) Hypertension: Admission and Anticipated Discharge Date Admission Date: May 28, 2020 Subjective Patient was seen at bedside just before noon today. Patient was obtunded, intermittently responding to voice before appearing to fall right back asleep. She did follow some commands, but was unable to follow the majority of commands. She sometimes tried to answer questions but was unable to complete any full words or communicate any meaningful information. She appeared uncomfortable but was not in distress. ROS unobtainable. Nurse was unsure of the time of the most recent administration of labetalol. Nurse reported that patient's presentation at this time was unchanged from when she came on shift. Systolic blood pressure reading while I was in the room was 188. GCS was 11 during interview (3 for eye opening response, 2 for verbal response, and 6 for motor response). Review of Systems Review of Systems: Unobtainable due to cognitive status Physical Exam Constitutional: + ill appearing, + altered mental status and + lethargic; no acute distress and + uncomfortable Respiratory: normal respiratory effort, lungs clear to auscultation Cardiovascular: RRR, no murmur, no edema Musculoskeletal: hand squeeze strength of LUE 4/5, hand squeeze strength of RUE 0/5 Neurologic: + confused and + obtunded Speech / Cognition: + abnormal speech Cranial Nerves: PERRL and normal accommodation; + abnormal facial strength Results & Data Results & Data ([facility]) Vital Signs (Past 12 Hours) Vital Signs Temp Pulse Pulse Pulse Resp BP Pulse Ox 05/29/20 10:30 36.4 C L 89 19 161/85 H 92 05/29/20 09:31 166/85 H 05/29/20 08:32 187/82 H 05/29/20 07:15 37.5 C 84 19 191/97 H 90 05/29/20 07:00 102 H 05/29/20 05:25 100 H 199/104 H 05/29/20 04:00 37.5 C 87 20 177/95 H 92 05/29/20 01:14 80 175/92 H 05/29/20 00:30 36.9 C 87 16 198/95 H 98 05/29/20 00:02 82 16 179/89 H 98 05/28/20 23:48 88 16 179/101 H 98 05/28/20 23:08 76 16 180/76 H 98 Resident Activity Tracking Resident Involvement: Resident Care Provided Care Provided: Adult Hospital Medicine (1) Ulcerative colitis Digestive disease complication type: without complication Ulcerative colitis location: unspecified ulcerative colitis location Qualified Code(s): K51.90 - Ulcerative colitis, unspecified, without complications
[2020-05-29] MEDS ORDERED: OPTIRAY 320 125ml IV ONE (12:47)
--- NOTE | 2020-05-29 13:09 | CT Scan Report ---
HEAD CT NONCONTRAST CT DOSE: HISTORY: Right upper extremity weakness. TECHNIQUE: Multiaxial CT images of the head were performed without the use of intravenous contrast. A utomated exposure control was utilized for this study. A dose lowering technique was utilized adheri ng to the principles of ALARA. Comparison: Head CT 05/28/2020. Brain MRI 05/28/2020. Findings: The paranasal sinuses and mastoid air cells are clear. The calvarium and skull base are int act. There are patchy areas of hypodensity corresponding to a loss of the trevino-white differentiation within the left frontal and parietal lobes near the high convexity. These are best seen on images 20 and 23. These likely represent acute left MCA territory infarcts. There is significant motion artifac t resulting in suboptimal evaluation of the brain. There is no mass, hematoma, midline shift. Impression: Patchy hypodensities within the left posterior frontal lobe and left parietal lobe which are new from the prior study. These likely represent acute left MCA territory infarcts. ACT 112: Negative or not required by law. Electronically signed by: Piyush Parekh M.D. 05/29/2020 1:07 PM
[2020-05-29] MEDS ORDERED: LORazepam 1 MG/2 ML VIAL IV STA ×2 (13:18→14:21)
--- NOTE | 2020-05-29 14:09 | CT Scan Report ---
HEAD CTA HISTORY: new right upper extremity weakness, hypertensive emergency TECHNIQUE: Multiaxial CT images of the head were performed following the intravenous administration o f contrast to evaluate the major cerebral vessels. Maximum intensity projection images were also obta ined. A dose lowering technique was utilized adhering to the principles of ALARA. COMPARISON: Head CTA 05/28/2020. FINDINGS: Left frontoparietal hypodensities are better appreciated on the same day head CT. Diminishe d perfusion of the distal left MCA branches in comparison to the right. The distal vertebral arteries , basilar artery, bilateral ACAs, bilateral rnfa, right MCA, and bilateral intracranial internal connor tid arteries are widely patent. No aneurysm identified. The proximal to mid left MCA branches are wid nadeen patent. There is suggestion of slightly diminished perfusion of the distal left MCA branches in c omparison to the right. Linear filling defects within the mid superior sagittal sinus persist suggest matthew of chronic thrombus. There is a progressive filling defect suggested at the junction of the right transverse sinus/sigmoid sinus with a persistent filling defect seen within the sigmoid sinus and pr oximal transverse sinus. Findings suggest an acute on chronic dural venous sinus thrombosis. These du ral venous sinus filling defects are best seen on image 57 of 227. IMPRESSION: Left frontoparietal hypodensities are again noted and are suggestive of acute infarct. This could be due to a distal left MCA territory infarct or possibly a venous infarct given the slight progression of the acute on chronic dural venous sinus thrombosis as described above. ACT 112: Negative or not required by law. Electronically signed by: Piyush Parekh M.D. 05/29/2020 2:08 PM
--- NOTE | 2020-05-29 15:07 | Magnetic Resonance Report ---
Brain MRI WITHOUT CONTRAST HISTORY: Right upper extremity weakness. possible infarcts on CT TECHNIQUE: Multiplanar multisequence MRI of the brain was performed without the use of contrast. COMPARISON STUDY: Brain MRI 05/28/2020. FINDINGS: Motion artifact. There are multifocal areas of cytotoxic/cortical edema seen within the lef t frontal, parietal, and occipital lobes. The left frontal parietal focus of edema may represent a li near area of restricted diffusion best seen on image 17 of the DWI sequences. The major vascular flow -voids at the skull base are well-maintained. The ventricles are normal in size. The orbits are unrem arkable. Paranasal sinuses and mastoid air cells are clear. There is no mass, hematoma, or midline sh ift. IMPRESSION: There are new multifocal areas of cytotoxic/cortical edema seen within the left frontal, parietal, an d occipital lobes which corresponds to the CT abnormality. There is a questionable linear area of res tricted diffusion seen within the left frontoparietal junction. Therefore, this is nonspecific and co uld be due to developing venous infarcts or possibly posterior reversal encephalopathy syndrome (PRES ). 12-24 hour brain MRI follow-up recommended to ensure stability/resolution. ACT 112: Negative or not required by law. Electronically signed by: Piyush Parekh M.D. 05/29/2020 3:05 PM
[2020-05-29] MEDS: LACTATED RINGER'S 1,000 ML IV SCH (15:20)
[2020-05-29] MEDS: niCARdipine 25 MG in SODIUM CHLORIDE 0.9% 240 ML IV SCH (16:37)
[2020-05-29] MEDS: ACETAMINOPHEN 1,000 MG/100 ML VIAL IV PRN (17:17)
--- NOTE | 2020-05-29 17:57 | Electrocardiogram Report ---
Test Reason : Blood Pressure : / mmHG Vent. Rate : 095 BPM Atrial Rate : 095 BPM P-R Int : 180 ms QRS Dur : 082 ms QT Int : 348 ms P-R-T Axes : 053 084 097 degrees QTc Int : 437 ms Poor data quality, interpretation may be adversely affected Normal sinus rhythm Normal ECG When compared with ECG of 01-NOV-2019 12:37, No significant change was found Confirmed by Frankie Bynum ([id number]) on 05/29/2020 5:57:21 PM Referred By: REFERRED SELF Confirmed By:Ishmael Bynum
[2020-05-29] MEDS ORDERED: MERCAPTOPURINE 50 MG TAB PO SCH (21:00)
[2020-05-30] MEDS: LACTATED RINGER'S 1,000 ML IV SCH ×2 (01:13→12:56)
[2020-05-30 05:18] LABS: Basophils # (auto) 0.01 K/uL (0-0.2); Basophils % (auto) 0.1 %; Eosinophils # (auto) 0.01 K/uL (0-0.5); Eosinophils % (auto) 0.1 %; Hematocrit (blood only) 34.6 % (37-47); Hemoglobin 10.8 g/dL (12.0-16.0); Immature Granulocytes # (auto) 0.04 K/uL (0.00-0.02); Immature Granulocytes % (auto) 0.4 %; Lymphocytes # (auto) 2.42 K/uL (1.2-3.4); Lymphocytes % (auto) 26.4 %; Mean Corpuscular Hemoglobin 26.6 pg (25-34); Mean Corpuscular Hgb Conc 31.2 g/dL (32-36); Mean Corpuscular Volume 85.2 fL (80-100); Mean Platelet Volume 8.3 fL (7.4-10.4); Monocytes # (auto) 0.84 K/uL (0.11-0.59); Monocytes % (auto) 9.2 %; Neutrophils # (auto) 5.83 K/uL (1.4-6.5); Neutrophils % (auto) 63.8 %; Platelet Count 340 K/uL (130-400); RDW Coefficient of Variation 16.9 % (11.5-14.5); RDW Standard Deviation 52.4 fL (36.4-46.3); Red Blood Count 4.06 M/uL (4.2-5.4); White Blood Count 9.15 K/uL (4.8-10.8)
[2020-05-30 05:36] LABS: BUN Creatinine Ratio 25.1 (10-20); Calcium 8.4 mg/dl (8.5-10.1); Creatinine Clr Calc Pharmacy 75.4 ml/min; Est GFR (African American) 104.7; Est GFR (Non-African American) 90.3; Potassium 3.9 mmol/L (3.5-5.1)
[2020-05-30 06:04] LABS: Estimated Average Glucose 128 mg/dl; Hemoglobin A1C 6.1 % (4.5-5.6)
--- NOTE | 2020-05-30 06:54 | Hospitalist Progress Note ---
Date of Service May 30, 2020 Assessment & Plan Admission and Anticipated Discharge Date Admission Date: May 28, 2020 Results & Data Results & Data ([facility]) Vital Signs (Past 12 Hours) Vital Signs Temp Pulse Resp BP Pulse Ox 05/30/20 06:00 94 H 18 152/87 H 92 05/30/20 05:30 90 21 92 05/30/20 05:00 92 H 18 155/78 H 92 05/30/20 04:30 87 16 144/69 H 95 05/30/20 04:00 37.7 C H 85 16 130/71 94 05/30/20 03:30 82 17 150/60 H 94 05/30/20 03:00 89 19 131/62 93 05/30/20 02:30 85 17 137/69 91 05/30/20 02:00 99 H 18 144/80 H 98 05/30/20 01:30 97 H 16 133/59 L 98 05/30/20 01:00 90 16 127/67 98 05/30/20 00:31 96 H 18 145/64 H 98 05/30/20 00:00 37.1 C 100 H 16 159/84 H 99 05/29/20 23:30 95 H 16 166/96 H 99 05/29/20 23:00 100 H 20 151/81 H 99 05/29/20 22:30 112 H 24 153/91 H 96 05/29/20 22:00 108 H 23 139/68 96 05/29/20 21:30 109 H 19 163/84 H 96 05/29/20 21:00 103 H 15 157/81 H 98 05/29/20 20:30 118 H 18 135/78 96 05/29/20 20:00 38 C H 105 H 18 145/74 H 96 05/29/20 19:30 116 H 20 141/72 H 96 05/29/20 19:11 105 H 17 137/75 98 05/29/20 19:00 114 H 16 95 Resident Activity Tracking Resident Involvement: Resident Care Provided Care Provided: Adult Hospital Medicine
--- NOTE | 2020-05-30 09:18 | Hospitalist Progress Note ---
Date of Service May 30, 2020 Assessment & Plan (1) Encephalopathy, hypertensive: 69yo female w/ hx of HTN and ulcerative colitis (on immunosuppression) who presented to the ED on 05/28/20 with altered mental status and hypertensive emergency. Found to have new neuro deficits and worsened AMS on 05/29/20 w/ imaging concerning for PRES syndrome. Intermittent fevers since 05/29/20. AMS 2/2 to PRES syndrome, in setting of hypertensive encephalopathy - imaging suggestive of PRES syndrome. CT initially suggestive of distal L MCA infarct, but MRI w/o DWI changes, so less likely. Per neurology read, small putaminal infarct (increased concern for clots). - BP control w/ nicardipine drip goal 140-160 systolic. continue nicardipine because unable to tolerate PO - continue q2h neuro checks - association of immunosuppressants w/ PRES syndrome? discussed w/ neurology. mercaptopurine and vedolizumab should not be contributory. - lipid panel wnl - repeat MRI 05/30/20 unchanged - 05/30/20 TTE: negative for interatrial shunt. EF 60-65%. - ordered EEG to r/o NCSE. low threshold for starting Keppra per neurology given increased risk for seizure in PRES syndrome. plan: after LP, started wt-based low dose heparin drip w/o bolus. fever, monocytosis, elevated ESR 56 - temp 37.7C at 0400 and 0900. yesterday afternoon 38.6C. 38C this PM. - no leukocytosis - will reassess for diarrhea / bloody stool because that would point towards flare of UC - considered autoimmune vs tick-borne infection. 10/2019 lyme ab pos. bands neg. - ordered UA, and blood cultures. Ordered lyme serology w/ reflex western blot and anaplasmosis smear. Ordered LP and CSF labs. - will treat empirically w/ IV ceftriaxone (2g q12h) (decent gram pos and neg coverage), IV acyclovir (ideal wt based, 525mg q8h, and IV fluconazole (200mg daily) while LP pending. - update: CSF PCR panel negative for neisseria, HSV. Cryptococcal antigen neg. Held the IV ceftriaxone, IV acyclovir, and IV fluconazole after receiving 1 dose each. Ceftriaxone dose for UTI would be 2g q24, and patient has already received a dose of 2g today. - check CBC and CMP in AM transverse sinus thrombosis - ED team discussed with [facility]: symptoms not thought to be secondary to chronic venous sinus thrombosis - currently not on anticoagulation - weighing risks vs benefits - if this is PRES, hemorrhage is more common in PRES patients on therapeutic anticoagulation - 05/30/20 update: per neurology, will anticoagulate on heparin drip d/t some concern for clot formation given the chronic venous sinus thrombosis (not uncommon in IBD) and small putaminal infarct Ulcerative colitis - patient on vedolizumab infusion outpatient - held mercaptopurine because unable to tolerate PO - held bactrim ppx anemia - stable, Hb 11.7->10.8 anxiety -held alprazolam 0.5mg bid prn asthma - fluticasone/vilanterol inhalers, currently not tolerating GERD - held prevacid qAM because unable to tolerate PO --added pantoprazole 40mg IV for stress ulcer ppx FENGI: NSS @ 70mL/hr (~maintenance rate) switched from LR@100mL/hr because of fluid from antibiotics and because of interaction w/ ceftriaxone. NPO. DVT ppx: heparin gtt as per above started 05/30/20 Code status: full Dispo: PCU (located at ICU d/t nircardipine drip) (2) PRES (posterior reversible encephalopathy syndrome): (3) Transverse sinus thrombosis: (4) Ulcerative colitis: (5) Iron deficiency anemia: (6) Hypertension: (7) GERD (gastroesophageal reflux disease): (8) Asthma: (9) Anxiety: (10) Fever: (11) Monocytosis: (12) Elevated erythrocyte sedimentation rate: Admission and Anticipated Discharge Date Admission Date: May 28, 2020 Supervising Physician Co-Signing Physician Notes Patient seen and examined independently of PGY-1 Dr. Guzman. Agree with history, exam findings, assessment and plan as outlined. In brief, 69 year old female with HTN and UC admitted with confusion, headache and elevated blood pressures concerning for hypertensive encephalopathy. On exam this morning, is able to nod yes, inconsistently follows commands. Right upper extremity drifts down toward the bed, left upper extremity able to hold for a second against gravity. Moves lower extremities equally spontaneously. Pupils were equal, round and reactive. Toes are down going. No meningmus. Vital signs and nursing notes were reviewed. BPs ranging 150-190/80-90. Fevers overnightnew. 1. Suspect PRES. On admission, CT Head, CTA Head/Neck only significant for transverse sinus thrombosis; however on repeat CT Head, CTA Head/Neck and MRI concerning for new patchy hypodensity within the left frontal and parietal loves, MRI with new multifocal areas of cytotoxic/cortical edema within the left frontal, parietal and occipital areas. Linear area of restricted diffusion in the left frontoparietal junction concern for PRES vs infarct. Repeat MRI Brain this morning without significant change. Started Nicardipine gtt for better BP controlwill plan to transition off in the morning and start verapamil if she is able to take PO. Neuro checks q2h, seizure precautions. EEG ordered. Low threshold to load with Keppra. Appreciate neurology recommendations. 2. Transverse sinus thrombosis. ?acute on chronicon CTA concern for progressive filling defect consistent with possible acute on chronic dural venous sinus thrombosis. Will start heparin gtt following LP given that she has a new punctate infarct in the right putamen on repeat MRI. 3. New fever. Receiving IV Tylenol. No new leukocytosis or other evidence of infection. UA without bacteria. Blood cultures pending. LP pending. Started empiric broad spectrum coverageamp, ceftriaxone, fluconazole, acyclovir. 4. Ulcerative Colitis. Entivyo infusions as an outpatient. Holding home m ercaptopurine and Bactrim prophy as she is NPO. Dispo: pending clinical improvement. Subjective Patient is confused. Answers "yes, ok" to everything. Answered no to abdominal pain during palpation. Unable to obtain any additional history becuase of AMS. Review of Systems Review of Systems: Unable to obtain ROS due to patient's AMS. Physical Exam Physical Exam: General: A&Ox0. Confused. Sleepy, arousable. Responds to everything with "yes, ok," but not answering questions meaningfully. HEENT: Atraumatic, normocephalic. Pulm: CTAB. -wheezes, -rales, -rhonchi. No respiratory distress. Cardiac: RRR, -mrg. Abdominal: Nontender, nondistended, soft. Neuro: Moving extremities. PERRL. Unable to perform neuro exam because of patient's AMS and inability to follow commands. Results & Data Results & Data ([facility]) Vital Signs (Past 12 Hours) Vital Signs Temp Pulse Resp BP Pulse Ox 05/30/20 09:00 94 H 19 92 05/30/20 08:28 104 H 26 H 157/105 H 92 05/30/20 08:00 86 17 90 05/30/20 07:27 96 H 22 145/84 H 91 05/30/20 07:00 104 H 22 90 05/30/20 06:00 94 H 18 152/87 H 92 05/30/20 05:30 90 21 92 05/30/20 05:00 92 H 18 155/78 H 92 05/30/20 04:30 87 16 144/69 H 95 05/30/20 04:00 37.7 C H 85 16 130/71 94 05/30/20 03:30 82 17 150/60 H 94 05/30/20 03:00 89 19 131/62 93 05/30/20 02:30 85 17 137/69 91 05/30/20 02:00 99 H 18 144/80 H 98 05/30/20 01:30 97 H 16 133/59 L 98 05/30/20 01:00 90 16 127/67 98 05/30/20 00:31 96 H 18 145/64 H 98 05/30/20 00:00 37.1 C 100 H 16 159/84 H 99 05/29/20 23:30 95 H 16 166/96 H 99 05/29/20 23:00 100 H 20 151/81 H 99 05/29/20 22:30 112 H 24 153/91 H 96 05/29/20 22:00 108 H 23 139/68 96 05/29/20 21:30 109 H 19 163/84 H 96 Resident Activity Tracking Resident Involvement: Resident Care Provided Care Provided: Adult Hospital Medicine (1) GERD (gastroesophageal reflux disease) Esophagitis presence: esophagitis presence not specified Qualified Code(s): K21.9 - Gastro-esophageal reflux disease without esophagitis (2) Ulcerative colitis Digestive disease complication type: without complication Ulcerative colitis location: unspecified ulcerative colitis location Qualified Code(s): K51.90 - Ulcerative colitis, unspecified, without complications (3) Asthma Asthma complication type: unspecified Asthma persistence: unspecified Asthma severity: unspecified severity Qualified Code(s): J45.909 - Unspecified asthma, uncomplicated
[2020-05-30] MEDS: ACETAMINOPHEN 1,000 MG/100 ML VIAL IV PRN ×2 (09:41→23:13)
--- NOTE | 2020-05-30 09:48 | XCELERA ---
[id number]
[2020-05-30] MEDS: FLUTICASONE/VILANTEROL 200/25MCG 14 PUFFS/INHALER INH SCH (10:48)
[2020-05-30] MEDS: ASPIRIN 81 MG ECTAB PO SCH (10:48)
[2020-05-30] MEDS: SULFAMETHOXAZOLE/TRIMETHOPRIM DS 800/160MG TAB PO SCH (10:48)
[2020-05-30] MEDS: LANSOPRAZOLE 30 MG SOLTAB PO SCH (10:48)
[2020-05-30] MEDS: ATORVASTATIN 40 MG TAB PO SCH (10:48)
--- NOTE | 2020-05-30 11:49 | Magnetic Resonance Report ---
MRI OF THE BRAIN WITHOUT IV CONTRAST CLINICAL HISTORY: Hypertensive emergency. Neurological deficits. Dural sinus thrombosis. COMPARISON STUDY: CT and MRI examinations of the brain dated 05/29/2020 and 05/28/2020. TECHNIQUE: MRI of the brain was performed utilizing various T1 and T2-weighted sequences in the axial , sagittal, and coronal planes. IV contrast was not administered for this examination. The examinatio n is degraded by motion artifact. FINDINGS: Brain parenchyma: Again seen are multiple foci of cortical edema involving the left frontal, parietal , and occipital lobes. There is no restricted diffusion typical for acute ischemia. Apparent increase d diffusion signal within the left occipital lobe may represent T2 shine through as there is no corre sponding drop in signal on the ADC maps. No similar appearing foci of edema identified throughout the right hemisphere. No hemorrhage is identified there is no midline shift. No extra-axial fluid collec tion is seen. The cerebellar tonsils are normal in configuration. Ventricles, sulci, and cisterns: Prominent secondary to involutional change. Pituitary and sella: Unremarkable. Intracranial vasculature: Arterial flow voids are maintained at the skull base. Thrombus is again see n within the right transverse/sigmoid sinus, and also likely within the superior sagittal sinus. This is not well assessed on today's examination. Orbits: The bony orbits are grossly intact. Orbital contents are normal in appearance. Sinuses and mastoids: There is mild mucosal thickening within the maxillary antra, the sphenoid sinus es, ethmoid sinuses, and the right frontal sinus. The mastoid air cells are clear. Calvarium: Unremarkable. Cervical cord: Partially visualized cervical spinal cord is normal in morphology and signal intensity . IMPRESSION: 1. There has been no significant change from yesterday's examination, with foci of cortical edema andi ntified in the left frontal, parietal, and occipital lobes. Top differential considerations include a nonspecific cerebritis, PRES, or less likely venous insufficiency/developing venous infarcts seconda ry to sinus thrombosis. Clinical correlation will be essential. 2. There is no hemorrhage or midline shift. 3. There is no restricted diffusion typical for acute ischemia. Faint apparent increase in diffusion signal in the occipital lobe may represent T2 shine through as there is no corresponding signal abnor mality on the ADC maps. 4. Sinus thrombus is likely unchanged from previous. ACT 112: Negative or not required by law. Electronically signed by: Donell Painter M.D. 05/30/2020 11:48 AM
[2020-05-30] MEDS: niCARdipine 25 MG in SODIUM CHLORIDE 0.9% 240 ML IV SCH (13:02)
[2020-05-30 13:03] LABS: Appearance Urine Clear (Clear); Bacteria Urine Automated Negative (Negative); Bilirubin Urine Negative (Negative); Blood Urine 3+ (Negative); Color Urine Orange; Glucose Urine UA Negative (Negative); Ketones Urine Negative (Negative); Leukocyte Esterase Urine 1+ (Negative); Nitrite Urine Negative (Negative); RBC Urine Automated >30 /hpf (0-4); Specific Gravity Urine 1.014 (1.000-1.030); Urobilinogen Urine Negative (Negative); pH Urine 8.5 (4.5-7.5)
[2020-05-30 13:04] LABS: Protein Urine 2+ (Negative)
--- NOTE | 2020-05-30 14:34 | Neurology Consultation ---
Date of Consultation May 30, 2020 Assessment & Plan (1) Transverse sinus thrombosis: (2) PRES (posterior reversible encephalopathy syndrome): Cathy Byers is a 69 yo woman w/ PMH of anxiety, asthma, GERD, iron deficiency anemia, prediabetes, HTN, pSVT, ulcerative colitis on IS, and h/o v asculitis who p/t [facility] with a several day history of headaches and a more acute onset of AMS starting on 05/28/20. Neurology consulted for onset of stroke like symptoms. # Suspected PRES: given her MRI findings and history/exam, she most likely has PRES. She is however febrile and is on immunosuppression that puts her at risk of [employer] infections. - SBP CAP 160, ok to restart home BP meds and try to wean off of nicardipine gtt (would consider calcium channel thomas such as verapamil as an alternative in case she has a level of vasculitis (she has a h/o vasculitis)). May require a second anti-hypertensive agent. - given fever and immunocompromised status, needs LP performed to r/o infectious cause of symptoms (cell counts, glucose, protein, CSF biofire, crypto antigen). Send serum [facility]ENT virus screen. - obtain routine EEG to r/o NCSE. Low threshold to load/start keppra 1g bid - continue q2h neuro checks # Right transverse sinus/sigmoid sinus and posterior superior sagittal non- occlusive CVST: this is relatively common in the setting of IBD. Given that her T2 hyperintensities are all left sided and the thrombus is right sided, do not believe that this is leading to venous infarcts. She does have a new punctuate infarct in the right putamen though on newest MRI brain which is concerning. - after completion of LP, start high risk (no bolus) heparin gtt with plan to transition to warfarin prior to discharge Thank you for this interesting consult. Plan of care discussed with primary team. Please call or text with questions. (3) Ulcerative colitis: History of Present Illness Attending Physician: Cabrera Cordova DO History of Present Illness Cathy Byers is a 69 yo woman w/ PMH of anxiety, asthma, GERD, iron deficiency anemia, prediabetes, HTN, pSVT, ulcerative colitis on IS, and h/o vasculitis who p/t [facility] with a several day history of headaches and a more acute onset of AMS starting on 05/28/20. Neurology consulted for onset of stroke like symptoms. In the ED, patient afebrile, BP 215/130, HR 109, RR 19, satting 95% on room air. BP peaked at 278/155. Labs notable for WBC 6.84, hemoglobin 11.7, platelets elevated 429, sodium/potassium within normal, BUN 11, creatinine 0.76, glucose 109, INR 1.1, troponin negative, LFTs within normal, magnesium within normal, Covid negative. Imaging independently reviewed. CT head initially in the ED showed no hemorrhage or hypodensity. CTA head and neck in the ED was notable for no LVO, high-grade stenosis or aneurysm in the arterial system, however she was noted to have nonocclusive thrombus in the posterior superior sagittal sinus with spread down to the distal right transverse sinus and right sigmoid sinus (thought to be chronic). Initial MRI brain showed no hemorrhage, acute stroke or tumors, did have mild SVID and re-demonstration of possible chronic right transverse/sigmoid sinus and superior sagittal sinus thrombus. She was admitted and started on labetalol as needed for elevated blood pressure thinking that her symptoms are due to hypertensive encephalopathy. Around noon on 05/29/2020, she was noted to have onset of right-sided weakness. Blood pressure around this time with systolics in the 130s. She was taken for repeat head CT was notable for new onset patchy hypodensities in the left frontal, parietal and occipital lobes. No change in CTA head and neck at that time aside from possibly a distal left MCA branch occlusion versus hypoperfusion. MRI brain showed new T2 hyperintensities in the same left frontal, parietal and occipital lobes with no DWI changes present, overall suggesting the presence of PRES. and repeat imaging the morning of 05-30-20, she was noted to have stable T2 hyperintensities in the left hemisphere with a punctate acute infarct in the right putamen. On examination, she opened eyes to voice but was otherwise non-verbal and unable to give further history. She moved all extremities except her RUE spontaneously. She had a left gaze preference but could be overcome with dolls eyes maneuver. Allergies Allergy/AdvReac Type Severity Reaction Status Date / Time adalimumab [From Humira] Allergy Intermediate RED PATCHES Verified 05/28/20 19:02 ciprofloxacin Allergy Intermediate RASH Verified 05/28/20 19:02 codeine Allergy Intermediate HEART Verified 05/28/20 19:02 PALPATATIONS infliximab Allergy Intermediate RED Verified 05/28/20 19:02 BLOCHES ON CHEST nitrofurantoin Allergy Intermediate VASCULITIS--TOLD Verified 05/28/20 19:02 [From Macrodantin] NOT TO TAKE AGAIN. adhesive AdvReac Mild SORE RED Verified 05/28/20 19:02 SKIN losartan AdvReac Mild COUGH Verified 05/28/20 19:02 lisinopril AdvReac Unknown Cough Verified 05/07/20 12:25 Home Medications Medication Instructions Recorded Confirmed Type cholecalciferol (vitamin D3) 2,000 unit PO HS 08/07/18 05/28/20 History [Vitamin D3] loratadine [Claritin] 10 mg PO DAILY PRN 08/07/18 05/28/20 History hydrocortisone 2.5 % topical cream 1 appln TOPICAL DAILY PRN #1 gm 02/11/19 05/28/20 History alprazolam 0.5 mg tablet 0.5 mg PO BID PRN #30 tab 08/02/19 05/28/20 Rx vedolizumab 300 mg intravenous See Rx Instructions IV .COMPLEX 10/09/19 05/28/20 History solution lansoprazole 30 mg capsule,delayed 30 mg PO QAM #90 cap 11/14/19 05/28/20 Rx release mercaptopurine 50 mg tablet 75 mg PO HS #135 tab 11/14/19 05/28/20 Rx ondansetron HCl 4 mg tablet 4 mg PO Q8H PRN #30 tab 12/11/19 05/28/20 Rx carvedilol 12.5 mg tablet 12.5 mg PO BID #180 tab 01/15/20 05/28/20 Rx fluticasone furoate 200 1 inh INH QAM #3 inhaler 02/17/20 05/28/20 Rx mcg-vilanterol 25 mcg/dose inhalation powder albuterol sulfate 90 mcg/actuation 1 - 2 puff INHALATION Q4 PRN #18 g 04/17/20 05/28/20 Rx aerosol inhaler sulfamethoxazole 800 1 tab PO BID 5 Days #10 tab 05/24/20 05/28/20 Rx mg-trimethoprim 160 mg tablet Patient History Medical History Anxiety Asthma Erythema nodosum GERD (gastroesophageal reflux disease) Hypertension Impaired fasting glucose Iron deficiency anemia Leukocytoclastic vasculitis Osteoporosis Paroxysmal supraventricular tachycardia Squamous cell carcinoma Ulcerative colitis Vitamin D deficiency Surgical History H/O removal of cyst Right breast History of colonoscopy History of dilatation and curettage History of esophagogastroduodenoscopy (EGD) History of tonsillectomy S/P knee surgery Right knee S/P laparoscopic hysterectomy Status post Mohs surgery Family History Unknown Cancer Father Esophageal cancer Transient ischemic attack Pulmonary embolism Brother Prostate cancer Mother Hypertension Sister FH: breast cancer in first degree relative Denies family history of Ovarian cancer Myocardial infarction Breast cancer Colorectal cancer Social History Smoking Status: Never smoker Tobacco Type: Cigarettes Cigarettes Per Day: 1984; Second Hand Exposure: No; Do You Dip or Chew Tobacco: No; Tobacco Cessation Education Requested by Patient: No Hx Alcohol Use: No Hx Substance Use: No Preferred Language: Colombian Communication Ability: Unable Communication Ability Comment: Patient sleepy and not compliant Visual Impairment: Limited Hearing Ability: Normal Dog Daycare Provider Required: No Beliefs That Will Affect Care: None marital status: Current Living Situation: Spouse current occupational status: retired Other Information That Helps Us Care for You: No Feels Safe at Home: Yes Safety Concerns: Feels Safe At This Time Childhood Exposure to Second-Hand Smoke: No caffeine: Yes during the past year weight has: remained stable Dental Care, Regularly: Yes Physical Activity Frequency: 3-4 Times per Week Seatbelt Use: always Sunscreen Use: Yes Assistive Devices: None Review of Systems Review of Systems: Unobtainable due to reduced consciousness Exam (Neuro) Physical Exam: General Exam: GEN: NAD, sitting in bed. HEENT: No conjunctival injection, no rhinorrhea. CV: RRR, no peripheral edema PULM: Nonlabored respirations on room air. Neuro Exam: MS: Awake and Alert. Not oriented to person, place, and date. Mainly aphasic, grunted once and grimaced as below. Language impaired including naming, comprehension, repetition. Cognition and memory grossly impaired. Inattentive. No clear neglect. CN: +BTT bilaterally. No optic disc edema on fundoscopic exam. PERRLA OU. EOMI with dolls eye maneuver but she does have a right gaze preference. Facial muscles full and symmetric. Hearing intact to conversation. Unable to assess uvula/tongue given AMS. MOTOR: Normal bulk and tone. Moves LUE/LLE/RLE spontaneously and somewhat purposefully. No spontaneous movement of RUE noted but can hold antigravity with drift to the bed. REFLEXES: 1+ at biceps, triceps, brachioradialis, 1+ patella and trace Achilles bilaterally. Flexor plantar responses bilaterally. SENSORY: Withdraws to noxious stimuli in all extremities COORDINATION: unable to assess 2/2 mental status GAIT: unable to assess 2/2 mental status/fall risk Results & Data ([facility]) Vital Signs (Past 12 Hours) Vital Signs Temp Pulse Resp BP Pulse Ox 05/30/20 13:17 88 19 151/79 H 92 05/30/20 13:02 103 H 19 172/83 H 91 05/30/20 13:00 106 H 23 91 05/30/20 12:47 96 H 17 171/79 H 91 05/30/20 12:32 106 H 19 176/93 H 91 05/30/20 12:17 107 H 19 172/87 H 91 05/30/20 12:02 106 H 19 184/97 H 91 05/30/20 12:00 99 H 19 91 05/30/20 11:47 103 H 17 176/92 H 92 05/30/20 11:31 103 H 19 05/30/20 11:30 38 C H 104 H 20 186/99 H 05/30/20 10:27 108 H 19 157/90 H 92 05/30/20 10:00 94 H 16 91 05/30/20 09:27 91 H 18 160/81 H 90 05/30/20 09:00 94 H 19 92 05/30/20 08:28 104 H 26 H 157/105 H 92 05/30/20 08:00 86 17 90 05/30/20 07:27 96 H 22 145/84 H 91 05/30/20 07:00 104 H 22 90 05/30/20 06:00 94 H 18 152/87 H 92 05/30/20 05:30 90 21 92 05/30/20 05:00 92 H 18 155/78 H 92 05/30/20 04:30 87 16 144/69 H 95 01/02/21 04:00 37.7 C H 85 16 130/71 94 05/30/20 03:30 82 17 150/60 H 94 05/30/20 03:00 89 19 131/62 93 05/30/20 02:30 85 17 137/69 91 PG Care Time/CCT Total # of Minutes Spent Total Time Spent with Patient: Total time spent is greater than 50% in coordination of care (as documented) at patient's floor/unit and/or counseling patient: Coding Level of Care Code 31771 Initial Inpt Care Lvl 3 Diagnoses Transverse sinus thrombosis G08 PRES (posterior reversible encephalopathy syndrome) I67.83 Ulcerative colitis K51.90 Digestive disease complication type: without complication Ulcerative colitis location: unspecified ulcerative colitis location (1) Ulcerative colitis Digestive disease complication type: without complication Ulcerative colitis location: unspecified ulcerative colitis location Qualified Code(s): K51.90 - Ulcerative colitis, unspecified, without complications
[2020-05-30] MEDS: PANTOprazole 40 MG in SYRINGE 0 ML IV SCH (16:25)
[2020-05-30] MEDS ORDERED: LORazepam 1 MG/2 ML VIAL IV STA (16:58)
[2020-05-30 17:56] LABS: Appearance CSF Clear; CSF Count Tube # 2; CSF Xanthrochromic No xanthochromia; Color CSF Colorless; Red Blood Cell CSF (A) 0 /uL (0-); Red Blood Cell CSF (B) 2 /uL (0-); White Blood Cell CSF (A) 0 /uL (0-5); White Blood Cell CSF (B) 0 /uL (0-5)
[2020-05-30] MEDS ORDERED: cefTRIAXone SODIUM 2,000 MG in DEXTROSE 5% 50 ML IV SCH (18:00)
[2020-05-30] MEDS ORDERED: DEXTROSE 5% IV SCH (18:00)
[2020-05-30] MEDS ORDERED: FLUCONAZOLE 200 MG/100 ML BAG IV SCH (18:00)
[2020-05-30] MEDS ORDERED: ACYCLOVIR SOD IV SCH (18:00)
[2020-05-30 18:09] LABS: CSF Glucose 47 mg/dl (40-70)
--- NOTE | 2020-05-30 18:13 | Fluoroscopy Report ---
FLUOROSCOPIC GUIDED LUMBAR PUNCTURE CLINICAL HISTORY: Change in mental status. Fever. Immunosuppression. PROCEDURE: The risks, benefits, and alternatives to the procedure is discussed with the patient who v oiced understanding. Written informed consent was obtained from the patient's by telephone. T he patient was placed prone on the fluoroscopy table. The lower back was prepped and draped in the [facility] sterile fashion. 1% lidocaine was used for local anesthesia. A 20-gauge spinal needle was inserte d into the L3-L4 interlaminar space, and approximately 10 cc of clear colorless cerebrospinal fluid w as removed. A single spot fluoroscopic image was saved. The patient tolerated the procedure well. The re were no immediate complications. The patient was then returned to the medical floor for further ob servation. Fluoroscopy time: 0.2 minutes IMPRESSION: Fluoroscopic guided lumbar puncture with removal of approximately 10 cc of cerebrospinal fluid. There were no immediate complications. ACT 112: Negative or not required by law. Electronically signed by: Donell Painter M.D. 05/30/2020 6:12 PM
[2020-05-30 18:16] LABS: Lactate CSF 3.6 mmol/L (0.6-2.2); Total Protein CSF 53.9 mg/dl (15-45)
[2020-05-30] MEDS: SODIUM CHLORIDE 0.9% 1000ML 1,000 ML IV SCH (18:32)
[2020-05-30 18:36] LABS: CSF Chemistry Tube # 1
[2020-05-30 18:53] LABS: CSF Specific Gravity 1.005 (1.006-1.008)
[2020-05-30] MEDS ORDERED: Heparin IV Low Dose *NO* Bolus IV SCH (19:00)
[2020-05-30] MEDS: HEPARIN SODIUM/DEXTROSE 25,000 UNITS/500 ML BAG IV SCH (19:23)
[2020-05-30 19:53] LABS: Cryptococcus neoformans/ga PCR Not Detected (NotDetected); Cytomegalovirus PCR Not Detected (NotDetected); Enterovirus PCR Not Detected (NotDetected); Escherichia coli K1 PCR Not Detected (NotDetected); Haemophilius influenzae PCR Not Detected (NotDetected); Herpes Simplex Virus 1 PCR Not Detected (NotDetected); Herpes Simplex Virus 2 PCR Not Detected (NotDetected); Human Herpes Virus 6 PCR Not Detected (NotDetected); Human Parechovirus PCR Not Detected (NotDetected); Listeria monocytogenes PCR Not Detected (NotDetected); Neisseria meningitidis PCR Not Detected (NotDetected); Streptococcus agalactiae PCR Not Detected (NotDetected); Streptococcus pneumoniae PCR Not Detected (NotDetected); Varicella Zoster Virus PCR Not Detected (NotDetected)
[2020-05-31 02:35] LABS: Partial Thromboplastin Ratio 1.2; Partial Thromboplastin Time 33.9 Seconds (21.0-31.0)
[2020-05-31] MEDS ORDERED: HEPARIN IV BOLUS 2,000 UNITS in SYRINGE 0 ML IV ONE (03:45)
[2020-05-31 05:14] LABS: Basophils # (auto) 0.02 K/uL (0-0.2); Basophils % (auto) 0.3 %; Eosinophils # (auto) 0.15 K/uL (0-0.5); Eosinophils % (auto) 2.2 %; Hematocrit (blood only) 36.8 % (37-47); Hemoglobin 11.3 g/dL (12.0-16.0); Immature Granulocytes # (auto) 0.01 K/uL (0.00-0.02); Immature Granulocytes % (auto) 0.1 %; Mean Corpuscular Hemoglobin 26.1 pg (25-34); Mean Corpuscular Hgb Conc 30.7 g/dL (32-36); Mean Platelet Volume 8.3 fL (7.4-10.4); Monocytes # (auto) 0.55 K/uL (0.11-0.59); Monocytes % (auto) 7.9 %; Neutrophils % (auto) 50.5 %; Platelet Count 299 K/uL (130-400); RDW Standard Deviation 52.7 fL (36.4-46.3); Red Blood Count 4.33 M/uL (4.2-5.4); White Blood Count 6.93 K/uL (4.8-10.8)
[2020-05-31 05:38] LABS: Albumin Level 2.9 gm/dl (3.4-5.0); Calcium 8.4 mg/dl (8.5-10.1); Creatinine Clr Calc Pharmacy 81.5 ml/min; Est GFR (African American) 107.4; Est GFR (Non-African American) 92.7; Potassium 3.5 mmol/L (3.5-5.1)
[2020-05-31 05:40] LABS: Albumin Globulin Ratio 0.7 (0.9-2); Bilirubin,Total 0.6 mg/dl (0.2-1); Total Protein 6.9 gm/dl (6.4-8.2)
[2020-05-31] MEDS: niCARdipine 25 MG in SODIUM CHLORIDE 0.9% 240 ML IV SCH ×3 (06:05→18:10)
[2020-05-31 06:54] LABS: Lyme Ab IgG w/WB Rflx Positive (Negative); Lyme Ab IgM w/WB Rflx Positive (Negative)
--- NOTE | 2020-05-31 06:58 | Hospitalist Progress Note ---
Date of Service May 31, 2020 Assessment & Plan (1) Encephalopathy, hypertensive: 69yo female w/ hx of HTN and ulcerative colitis (on immunosuppression) who presented to the ED on 05/28/20 with altered mental status and hypertensive emergency. Found to have new neuro deficits and worsened AMS on 05/29/20 w/ imaging concerning for PRES syndrome. Intermittent fevers 05/29/20-05/30/20, but afebrile since evening of 05/30/20. Mentation much improved 05/31/20 and in process of transitioning back to PO meds. AMS 2/2 to PRES syndrome, in setting of hypertensive encephalopathy - 05/31/20: stable, improving, afebrile overnight - imaging suggestive of PRES syndrome. CT initially suggestive of distal L MCA infarct, but MRI w/o DWI changes, so less likely. Per neurology read, small putaminal infarct (increased concern for clots). - BP control w/ nicardipine drip goal 140-160 systolic. d/c'd nicardipine 05/31/20. - 05/31/20 switched q2h neuro checks to q4h - association of immunosuppressants w/ PRES syndrome? discussed w/ neurology. mercaptopurine and vedolizumab should not be contributory. - lipid panel wnl - repeat MRI 05/30/20 unchanged - 05/30/20 TTE: negative for interatrial shunt. EF 60-65%. - ordered EEG to r/o NCSE. low threshold for starting Keppra per neurology given increased risk for seizure in PRES syndrome. - after LP, started wt-based low dose heparin drip w/o bolus. 05/31/20: plan is to transition to PO warfarin tomorrow - 05/31/20 reordered tylenol 650 PO q8hprn ordered for fever or headache. delayed start time because had received 2g of IV tylenol overnight nausea - mild, had been off of antiemetics PRN because of IV Zofran and caution of qt prolongation when used w/ the other medicines - reordered zofran PO prn after passed swallow study fever, monocytosis, elevated ESR 56 - fever and monocytosis have resolved 05/31/20 - no leukocytosis - less likely UC flare giving the resolution of absolute monocytosis s/p 1 dose of empiric abx - considered autoimmune vs tick-borne infection. 10/2019 lyme ab pos. bands neg. - ordered UA, and blood cultures. 10/2019 Lyme testing positive IgM and IgG w/ single positive band. Ordered lyme serology w/ reflex western blot and anaplasmosis smear. Ordered LP and CSF labs. Sent csf to lab. - will treat empirically w/ IV ceftriaxone (2g q12h) (decent gram pos and neg coverage), IV acyclovir (ideal wt based, 525mg q8h, and IV fluconazole (200mg daily) while LP pending. - update: CSF PCR panel negative for neisseria, HSV. Cryptococcal antigen neg. Held the IV ceftriaxone, IV acyclovir, and IV fluconazole after receiving 1 dose each. Ceftriaxone dose for UTI would be 2g q24, and patient has already received a dose of 2g today. - 05/31/20 restarted the empiric IV ceftriaxone 2g q12, acyclovir, and fluconazole because cultures still pending. update: discontinued acyclovir and fluconazole after discussion w/ neurologist based on pcr biofire results - check CBC and CMP in AM transverse sinus thrombosis - ED team discussed with [facility]: symptoms not thought to be secondary to chronic venous sinus thrombosis - currently not on anticoagulation - weighing risks vs benefits - if this is PRES, hemorrhage is more common in PRES patients on therapeutic anticoagulation - 05/30/20 update: per neurology, will anticoagulate on heparin drip d/t some concern for clot formation given the chronic venous sinus thrombosis (not uncommon in IBD) and small putaminal infarct - 05/31/20: after discussion w/ neurology, would like to have patient on PO anticoagulant when home because the venous sinus thrombosis being acute vs chronic is unclear Ulcerative colitis - patient on vedolizumab infusion outpatient - held mercaptopurine because unable to tolerate PO - held bactrim ppx - can restart PO meds tomorrow as needed anemia - stable, Hb 11.7->10.8->11.3 anxiety -held alprazolam 0.5mg bid prn asthma - fluticasone/vilanterol inhalers GERD - held prevacid qAM because unable to tolerate PO - added pantoprazole 40mg IV for stress ulcer ppx - 05/31/20 will d/c IV pantoprazole and start PO equivalent FENGI: NSS @ 70mL/hr (~maintenance rate) switched from LR@100mL/hr because of fluid from antibiotics and because of interaction w/ ceftriaxone. 05/31/20 regular diet after passing speech consult DVT ppx: heparin gtt as per above started 05/30/20 Code status: full Dispo: PCU (located at ICU), will transition off ICU floor as per nursing (2) PRES (posterior reversible encephalopathy syndrome): (3) Transverse sinus thrombosis: (4) Ulcerative colitis: (5) Iron deficiency anemia: (6) Hypertension: (7) GERD (gastroesophageal reflux disease): (8) Asthma: (9) Anxiety: (10) Fever: (11) Monocytosis: (12) Elevated erythrocyte sedimentation rate: (13) Nausea: Admission and Anticipated Discharge Date Admission Date: May 28, 2020 Supervising Physician Co-Signing Physician Notes Patient seen and examined independently of PGY-1 Dr. Guzman. Agree with history, exam findings, assessment and plan as outlined. In brief, 69 year old female with HTN and UC admitted with confusion, headache and elevated blood pressures concerning for hypertensive encephalopathy. She started to ask for her last night. She is feeling better, but does note that she is frustrated because she is having difficulty finding words. Notes that she does not remember getting multiple MRIs or CTs. Does remember that her nurse was Ruben yesterday evening. Vital signs and nursing notes were reviewed. BPs ranging 140-150/70s. Afebrile. Awake, oriented. Moving all extremities spontaneously. Difficulty with word finding. 1. Suspect PRES. Improving in terms of mental status, but with expressive and receptive aphasia, anomia. On admission, CT Head, CTA Head/Neck only significant for transverse sinus thrombosis; however on repeat CT Head, CTA Head/Neck and MRI concerning for new patchy hypodensity within the left frontal and parietal loves, MRI with new multifocal areas of cytotoxic/cortical edema within the left frontal, parietal and occipital areas. Linear area of restricted diffusion in the left frontoparietal junction concern for PRES vs infarct. Repeat MRI Brain yesterday without significant change. Weaning off nicardipine gtt and transition to verapamil 80mg TID. Restarted home coreg 12.5mg BID. Will need repeat MRI I 4-6 weeks as an outpatient. Appreciate neurology recommendations. 2. Transverse sinus thrombosis. ?acute on chronicon CTA concern for progressive filling defect consistent with possible acute on chronic dural venous sinus thrombosis. Will start heparin gtt following LP given that she has a new punctate infarct in the right putamen on repeat MRI. Plan to transition to oral anticoagulation. 3. New fever--resolved. Afebrile since yesterday. No new leukocytosis or other evidence of infection. Urine growing Proteus. Culture from November grew out redman- sensitive Proteus. Blood cultures with no growth x 24 hours. LP without evidence of infection. Stopped broad spectrum antibiotics/antiviral/antifungal for now, but continue with ceftriaxone for proteus until sensitivities return. 4. Ulcerative Colitis. Entivyo infusions as an outpatientlast infusion in early April. Holding home mercaptopurine in the setting of infection. Can restart home Bactrim prophylaxis. Dispo: clinically improving. Anticipate that she may need short stay with rehab at discharge. Seen by PT and speech today. OT eval pending. Subjective Significant improvement regarding mentation overnight. Requesting muñoz removal and nausea medicine. + occipital headache. No chest pain or SOB. Review of Systems Review of Systems: Constitutional: Denies fever, chills ENT: Denies sore throat, sinus pain Cardiovascular: Denies chest pain Respiratory: Denies shortness of breat Gastrointestinal: Denies abdominal pain, nausea, vomiting, constipation, diarrhea Genitourinary: Has muñoz. States it is uncomfortable. PM update: muñoz removed. Musculoskeletal: Denies weakness, muscle aches/pain, joint aches/pain Neurological: Denies numbness, tingling, focal weakness Physical Exam Physical Exam: General: A&O to person, place, and situation, but not time. NAD. Cooperative. HEENT: Atraumatic, normocephalic. PERRL Pulm: CTAB. -wheezes, -rales, -rhonchi. No respiratory distress. Cardiac: RRR, -mrg. No LE edema. Abdominal: Nontender, nondistended, soft. Neuro: Symmetrical strength of distal extremities 4+/5. Conversive, but has expressive aphasia. Results & Data Results & Data ([facility]) Vital Signs (Past 12 Hours) Vital Signs Temp Pulse Resp BP Pulse Ox 05/31/20 06:30 89 20 139/74 05/31/20 06:00 89 14 145/68 H 05/31/20 05:30 92 H 17 05/31/20 05:00 88 18 146/86 H 05/31/20 04:30 91 H 24 05/31/20 04:00 36.8 C 87 15 160/78 H 93 05/31/20 03:30 87 19 149/75 H 05/31/20 03:00 85 19 05/31/20 02:30 82 17 173/87 H 05/31/20 02:27 86 19 166/85 H 05/31/20 02:00 81 18 158/82 H 05/31/20 01:30 78 16 05/31/20 01:00 88 16 158/94 H 94 05/31/20 00:30 84 19 94 05/31/20 00:00 37.2 C 82 15 152/72 H 94 05/30/20 23:30 89 18 93 05/30/20 23:00 94 H 13 141/68 H 94 05/30/20 22:30 94 H 12 95 05/30/20 22:00 87 16 140/68 94 05/30/20 21:30 77 17 127/64 94 05/30/20 21:00 75 20 93 05/30/20 20:30 97 H 22 114/61 92 05/30/20 20:00 37.5 C 85 17 92 05/30/20 19:30 103 H 20 139/68 94 05/30/20 19:00 97 H 22 91 Laboratory Results corrected Ca 9.3 Resident Activity Tracking Resident Involvement: Resident Care Provided Care Provided: [facility] Medicine (1) GERD (gastroesophageal reflux disease) Esophagitis presence: esophagitis presence not specified Qualified Code(s): K21.9 - Gastro-esophageal reflux disease without esophagitis (2) Ulcerative colitis Digestive disease complication type: without complication Ulcerative colitis location: unspecified ulcerative colitis location Qualified Code(s): K51.90 - Ulcerative colitis, unspecified, without complications (3) Asthma Asthma complication type: unspecified Asthma persistence: unspecified Asthma severity: unspecified severity Qualified Code(s): J45.909 - Unspecified asthma, uncomplicated
[2020-05-31] MEDS: FLUTICASONE/VILANTEROL 200/25MCG 14 PUFFS/INHALER INH SCH (08:17)
[2020-05-31] MEDS: ACETAMINOPHEN 1,000 MG/100 ML VIAL IV PRN (08:27)
[2020-05-31] MEDS ORDERED: DEXTROSE 5% IV SCH (09:00)
[2020-05-31] MEDS ORDERED: ACYCLOVIR SOD IV SCH (09:00)
[2020-05-31] MEDS: cefTRIAXone SODIUM 2,000 MG in DEXTROSE 5% 50 ML IV SCH ×2 (09:13→20:27)
--- NOTE | 2020-05-31 09:42 | Neurology Progress Note ---
Date of Service May 31, 2020 Assessment & Plan (1) Transverse sinus thrombosis: (2) PRES (posterior reversible encephalopathy syndrome): Cathy Byers is a 69 yo woman w/ PMH of anxiety, asthma, GERD, iron deficiency anemia, prediabetes, HTN, pSVT, ulcerative colitis on IS, and h/o vasculitis who p/t [facility] with a several day history of headaches and a more acute onset of AMS starting on 05/28/20. Neurology consulted for onset of stroke like symptoms. CSF results: 0 WBCs, 0 RBCs, 47 glucose, 53.9 protein, lactate elevated to 3.6, CSF biofire negative UA no infection, +hematuria; urine culture growing >100,000 cfu of proteus Blood culture NGTD ESR elevated to 56 (but in setting of infection and UC, difficult to interpret, no signs of vasculitis/beading on CTA head) Lyme IgM/IgG positive but was positive in 10/2019 (also, per more recent guidelines, not helpful in elucidating current infection; her results represent old infection) # Suspected PRES: given her MRI findings and history/exam, she most likely has PRES. She is however febrile and is on immunosuppression that puts her at risk of GAME [employer]ER infections. No GAME PROGRAMER infection identified. - SBP CAP 160, ok to restart home BP meds and try to wean off of nicardipine gtt. May require a second anti-hypertensive agent - ok to de-escalate antibiotics/antivirals/antifungals given zero WBCs in CSF - serum VINCENT virus pending - obtain routine EEG to r/o NCSE (pending) - continue q2h neuro checks - will need repeat MRI brain in 4-6 weeks post-discharge (will arrange in neurology clinic for this) - follow up with neurology (Dr Sifuentes) in 4-6 weeks post-discharge # Right transverse sinus/sigmoid sinus and posterior superior sagittal non- occlusive CVST: this is relatively common in the setting of IBD. Given that her T2 hyperintensities are all left sided and the thrombus is right sided, do not believe that this is leading to venous infarcts. She does have a new punctuate infarct in the right putamen though on newest MRI brain which is concerning. - continue high risk (no bolus) heparin gtt with plan to transition to warfarin prior to discharge # UTI: treatment per primary team (can continue ceftriaxone for now pending sensitivities) Thank you for this interesting consult. Plan of care discussed with primary team. Please call or text with questions. 31 minutes of critical care time was spent in caring for this patient (CPT [id number]). (3) Ulcerative colitis: Admission and Anticipated Discharge Date Admission Date: May 28, 2020 Subjective NAEs overnight. Had LP performed that showed no signs of GAME PROGRAMER infection. Started on broad spectrum antibiotics/acyclovir yesterday evening given ongoing fevers. Started on heparin gtt for acute on chronic CVST. Still requiring nicardipine gtt to maintain BP goal. This morning, she is much more alert, able to talk some and follow commands to some extent. She expressed anxiety about not remembering the last few days. Review of Systems Review of Systems: Unobtainable due to reduced consciousness Results & Data ([facility]) Vital Signs (Past 12 Hours) Vital Signs Temp Pulse Resp BP Pulse Ox 05/31/20 06:30 89 20 139/74 05/31/20 06:00 89 14 145/68 H 05/31/20 05:30 92 H 17 05/31/20 05:00 88 18 146/86 H 05/31/20 04:30 91 H 24 05/31/20 04:00 36.8 C 87 15 160/78 H 93 05/31/20 03:30 87 19 149/75 H 05/31/20 03:00 85 19 05/31/20 02:30 82 17 173/87 H 05/31/20 02:27 86 19 166/85 H 05/31/20 02:00 81 18 158/82 H 05/31/20 01:30 78 16 05/31/20 01:00 88 16 158/94 H 94 05/31/20 00:30 84 19 94 05/31/20 00:00 37.2 C 82 15 152/72 H 94 05/30/20 23:30 89 18 93 05/30/20 23:00 94 H 13 141/68 H 94 05/30/20 22:30 94 H 12 95 05/30/20 22:00 87 16 140/68 94 Exam (Neuro) Physical Exam: General Exam: GEN: NAD, sitting in bed. HEENT: No conjunctival injection, no rhinorrhea. CV: RRR, no peripheral edema PULM: Nonlabored respirations on room air. Neuro Exam: MS: Awake and Alert. Oriented to person and month but not location/situation. Speech has improved, speech is fluent without dysarthria, +paraphrasic errors and frequent pauses. Language mildly impaired including naming, comprehension, repetition. Cognition and memory grossly intact. Attentive. No clear neglect. CN: +BTT bilaterally. No optic disc edema on fundoscopic exam. PERRLA OU. EOMI without nystagmus. Facial muscles full and symmetric. Hearing intact to conversation. Tongue midline. MOTOR: Normal bulk and tone. All extremities antigravity without drift (4+/5 strength in the RUE otherwise 5/5 strength) REFLEXES: 1+ at biceps, triceps, brachioradialis, 1+ patella and trace Achilles bilaterally. Flexor plantar responses bilaterally. SENSORY: Intact to LT throughout COORDINATION: mild dysmetria in RUE though within the range of normal given RUE weakness GAIT: deferred given physical status PG Care Time/CCT Total # of Minutes Spent Total Time Spent with Patient: Total time spent is greater than 50% in coordination of care (as documented) at patient's floor/unit and/or counseling patient: Coding Level of Care Code 61209 Subseq Hosp Care Lvl 3 (25 - SIGNIFICANT, SEPARATELY IDENTIFIABLE ) Diagnoses Transverse sinus thrombosis G08 PRES (posterior reversible encephalopathy syndrome) I67.83 Ulcerative colitis K51.90 Digestive disease complication type: without complication Ulcerative colitis location: unspecified ulcerative colitis location (1) Ulcerative colitis Digestive disease complication type: without complication Ulcerative colitis location: unspecified ulcerative colitis location Qualified Code(s): K51.90 - Ulcerative colitis, unspecified, without complications
[2020-05-31 10:49] LABS: Partial Thromboplastin Ratio 1.7
[2020-05-31 10:53] LABS: Partial Thromboplastin Time 47.1 Seconds (21.0-31.0)
[2020-05-31] MEDS: PANTOprazole 40 MG in SYRINGE 0 ML IV SCH (12:19)
[2020-05-31] MEDS ORDERED: ONDANSETRON 4 MG OD TAB PO PRN (12:24)
[2020-05-31] MEDS ORDERED: ACETAMINOPHEN 325 MG TAB PO PRN (12:35)
[2020-05-31] MEDS: VERAPAMIL HCL 40 MG TAB PO SCH ×2 (13:13→20:28)
[2020-05-31] MEDS: SODIUM CHLORIDE 0.9% 1000ML 1,000 ML IV SCH (14:56)
[2020-05-31] MEDS ORDERED: FLUCONAZOLE 200 MG/100 ML BAG IV SCH (18:00)
[2020-06-01] MEDS: HEPARIN SODIUM/DEXTROSE 25,000 UNITS/500 ML BAG IV SCH (03:32)
[2020-06-01] MEDS: SODIUM CHLORIDE 0.9% 1000ML 1,000 ML IV SCH ×2 (03:33→13:04)
[2020-06-01 05:16] LABS: Basophils # (auto) 0.03 K/uL (0-0.2); Basophils % (auto) 0.4 %; Eosinophils # (auto) 0.33 K/uL (0-0.5); Eosinophils % (auto) 4.9 %; Hematocrit (blood only) 33.1 % (37-47); Hemoglobin 10.4 g/dL (12.0-16.0); Immature Granulocytes # (auto) 0.01 K/uL (0.00-0.02); Immature Granulocytes % (auto) 0.1 %; Lymphocytes # (auto) 2.64 K/uL (1.2-3.4); Lymphocytes % (auto) 39.2 %; Mean Corpuscular Hemoglobin 26.5 pg (25-34); Mean Corpuscular Hgb Conc 31.4 g/dL (32-36); Mean Corpuscular Volume 84.2 fL (80-100); Mean Platelet Volume 8.4 fL (7.4-10.4); Monocytes # (auto) 0.49 K/uL (0.11-0.59); Monocytes % (auto) 7.3 %; Neutrophils # (auto) 3.23 K/uL (1.4-6.5); Neutrophils % (auto) 48.1 %; Platelet Count 317 K/uL (130-400); RDW Standard Deviation 52.3 fL (36.4-46.3); Red Blood Count 3.93 M/uL (4.2-5.4); White Blood Count 6.73 K/uL (4.8-10.8)
[2020-06-01] MEDS: ACETAMINOPHEN 325 MG TAB PO PRN (05:17)
[2020-06-01 05:36] LABS: Partial Thromboplastin Ratio 1.5; Partial Thromboplastin Time 42.8 Seconds (21.0-31.0)
[2020-06-01 05:42] LABS: BUN Creatinine Ratio 21.5 (10-20); Calcium 7.9 mg/dl (8.5-10.1); Creatinine Clr Calc Pharmacy 76.2 ml/min; Est GFR (African American) 105.2; Est GFR (Non-African American) 90.8; Potassium 3.3 mmol/L (3.5-5.1)
[2020-06-01] MEDS: VERAPAMIL HCL 40 MG TAB PO SCH ×3 (08:18→20:31)
[2020-06-01] MEDS: PANTOprazole 40 MG TAB PO SCH (08:18)
--- NOTE | 2020-06-01 09:09 | Hospitalist Progress Note ---
Date of Service June 01, 2020 Assessment & Plan (1) Encephalopathy, hypertensive: 69yo female w/ hx of HTN and ulcerative colitis (on immunosuppression) who presented to the ED on 05/28/20 with altered mental status and hypertensive emergency. Found to have new neuro deficits and worsened AMS on 05/29/20 w/ imaging concerning for PRES syndrome. Intermittent fevers 05/29/20-05/30/20, but afebrile since evening of 05/30/20. Mentation much improved 05/31/20 and in process of transitioning back to PO meds. AMS 2/2 to PRES syndrome, in setting of hypertensive encephalopathy - 05/31/20: stable, improving, afebrile overnight - imaging suggestive of PRES syndrome. CT initially suggestive of distal L MCA infarct, but MRI w/o DWI changes, so less likely. Per neurology read, small putaminal infarct (increased concern for clots). - BP control w/ nicardipine drip goal 140-160 systolic. d/c'd nicardipine 05/31/20. - 05/31/20 switched q2h neuro checks to q4h - association of immunosuppressants w/ PRES syndrome? discussed w/ neurology. mercaptopurine and vedolizumab should not be contributory. - lipid panel wnl - repeat MRI 05/30/20 unchanged - 05/30/20 TTE: negative for interatrial shunt. EF 60-65%. - ordered EEG to r/o NCSE. low threshold for starting Keppra per neurology given increased risk for seizure in PRES syndrome. - after LP, started wt-based low dose heparin drip w/o bolus. 05/31/20: plan is to transition to PO warfarin tomorrow - 05/31/20 reordered tylenol 650 PO q8hprn ordered for fever or headache. delayed start time because had received 2g of IV tylenol overnight - 06/01/20: transitioned from wafarin gtt to warfarin 5mg PO qd, PT/INR qd nausea - mild, had been off of antiemetics PRN because of IV Zofran and caution of qt prolongation when used w/ the other medicines - reordered zofran PO prn after passed swallow study fever, monocytosis, elevated ESR 56 - fever and monocytosis have resolved 05/31/20 - no leukocytosis - less likely UC flare giving the resolution of absolute monocytosis s/p 1 dose of empiric abx - considered autoimmune vs tick-borne infection. 10/2019 lyme ab pos. bands neg. - ordered UA, and blood cultures. 10/2019 Lyme testing positive IgM and IgG w/ single positive band. Ordered lyme serology w/ reflex western blot and anaplasmosis smear. Ordered LP and CSF labs. Sent csf to lab. - will treat empirically w/ IV ceftriaxone (2g q12h) (decent gram pos and neg coverage), IV acyclovir (ideal wt based, 525mg q8h, and IV fluconazole (200mg daily) while LP pending. - update: CSF PCR panel negative for neisseria, HSV. Cryptococcal antigen neg. Held the IV ceftriaxone, IV acyclovir, and IV fluconazole after receiving 1 dose each. Ceftriaxone dose for UTI would be 2g q24, and patient has already received a dose of 2g today. - 05/31/20 restarted the empiric IV ceftriaxone 2g q12, acyclovir, and fluconazole because cultures still pending. update: discontinued acyclovir and fluconazole after discussion w/ neurologist based on pcr biofire results - check CBC and CMP in AM transverse sinus thrombosis - ED team discussed with [facility]: symptoms not thought to be secondary to chronic venous sinus thrombosis - currently not on anticoagulation - weighing risks vs benefits - if this is PRES, hemorrhage is more common in PRES patients on therapeutic anticoagulation - 05/30/20 update: per neurology, will anticoagulate on heparin drip d/t some concern for clot formation given the chronic venous sinus thrombosis (not uncommon in IBD) and small putaminal infarct - 05/31/20: after discussion w/ neurology, would like to have patient on PO anticoagulant when home because the venous sinus thrombosis being acute vs chronic is unclear - 06/01/20: transitioned to PO warfarin as described above Ulcerative colitis - patient on vedolizumab infusion outpatient - previously holding PO meds as unable to tolerate PO - 06/01/20: restarting PO meds anemia - stable, Hb 11.7->10.8->11.3 anxiety - alprazolam 0.5mg bid prn asthma - fluticasone/vilanterol inhalers GERD - held prevacid qAM because unable to tolerate PO - added pantoprazole 40mg IV for stress ulcer ppx - 05/31/20 will d/c IV pantoprazole and start PO equivalent FENGI: NSS @ 70mL/hr, regular diet DVT ppx: warfarin 5mg PO Code status: full Dispo: PCU (located at ICU), will transition off ICU floor as per nursing (2) PRES (posterior reversible encephalopathy syndrome): (3) Transverse sinus thrombosis: (4) Ulcerative colitis: (5) Iron deficiency anemia: (6) Hypertension: (7) GERD (gastroesophageal reflux disease): (8) Asthma: (9) Anxiety: (10) Fever: (11) Monocytosis: (12) Elevated erythrocyte sedimentation rate: (13) Nausea: Admission and Anticipated Discharge Date Admission Date: May 28, 2020 Supervising Physician Co-Signing Physician Notes I personally examined the patient and verified all wright points of history and exam, discussed case, and agree with decision making with Dr Tillman feeling about the same - still having trouble w word finding and frustrated by this. otherwise no new issues vitals noted nad difficulty w word finding and expression breathing unlabored no accessory muscles no pallor or icterus pres and venous thrombosis - BP control, start coumadin, follow otherwise as above Subjective Patient was seen at bedside this morning. She feels "okay" but complains of difficulty finding words. Reports no physical symptoms at this time. She notes some anxiety and requested her home dose xanax, which was given. Denies chest pain, shortness of breath, nausea, vomiting, feeling feverish, diarrhea, urinary symptoms, lightheadedness, or dizziness. Spoke with patient's on the phone this afternoon; he is very happy to hear of her continued improvement. He had no new questions at this time. Review of Systems Constitutional: no fever and no chills Respiratory: no cough and no dyspnea Cardiovascular: no chest pain and no calf pain Gastrointestinal: no abdominal pain, no nausea, no vomiting, no constipation and no diarrhea/loose stools Genitourinary: no dysuria, no urinary frequency and no urinary urgency Neurologic: no tingling, no numbness and no dizziness Physical Exam Constitutional: cooperative; no acute distress Respiratory: no respiratory distress and no labored breathing Cardiovascular: RRR, no murmur, no edema Gastrointestinal (Abdomen): normal bowel sounds, soft, nontender, no hepatosplenomegaly Neurologic: CN's II-XI intact bilaterally; no focal motor deficits Psychiatric: Orientation: alert and oriented x 3 Affect: + anxious affect Results & Data Results & [facility] ([facility]) Vital Signs (Past 12 Hours) Vital Signs Temp Pulse Pulse Resp BP Pulse Ox 06/01/20 07:21 37.1 C 73 16 135/59 L 96 06/01/20 04:00 36.7 C 80 17 131/76 96 06/01/20 00:00 36.9 C 85 20 131/68 95 Resident Activity Tracking Resident Involvement: Resident Care Provided Care Provided: Adult Hospital Medicine (1) GERD (gastroesophageal reflux disease) Esophagitis presence: esophagitis presence not specified Qualified Code(s): K21.9 - Gastro-esophageal reflux disease without esophagitis (2) Ulcerative colitis Digestive disease complication type: without complication Ulcerative colitis location: unspecified ulcerative colitis location Qualified Code(s): K51.90 - Ulcerative colitis, unspecified, without complications (3) Asthma Asthma complication type: unspecified Asthma persistence: unspecified Asthma severity: unspecified severity Qualified Code(s): J45.909 - Unspecified asthma, uncomplicated
--- NOTE | 2020-06-01 09:36 | Electroencephalogram ---
EEG Procedure Note Date of Service June 01, 2020 Start / End Times Start Time: 8:11 AM End Time: 8:[address] Guzman MD History Encephalopathy, PRES, CVT Home Medication List Medication Instructions Recorded Confirmed Type cholecalciferol (vitamin D3) 2,000 unit PO HS 08/07/18 05/28/20 History [Vitamin D3] loratadine [Claritin] 10 mg PO DAILY PRN 08/07/18 05/28/20 History hydrocortisone 2.5 % topical cream 1 appln TOPICAL DAILY PRN #1 gm 02/11/19 05/28/20 History alprazolam 0.5 mg tablet 0.5 mg PO BID PRN #30 tab 08/02/19 05/28/20 Rx vedolizumab 300 mg intravenous See Rx Instructions IV .COMPLEX 10/09/19 05/28/20 History solution lansoprazole 30 mg capsule,delayed 30 mg PO QAM #90 cap 11/14/19 05/28/20 Rx release mercaptopurine 50 mg tablet 75 mg PO HS #135 tab 11/14/19 05/28/20 Rx ondansetron HCl 4 mg tablet 4 mg PO Q8H PRN #30 tab 12/11/19 05/28/20 Rx carvedilol 12.5 mg tablet 12.5 mg PO BID #180 tab 01/15/20 05/28/20 Rx fluticasone furoate 200 1 inh INH QAM #3 inhaler 02/17/20 05/28/20 Rx mcg-vilanterol 25 mcg/dose inhalation powder albuterol sulfate 90 mcg/actuation 1 - 2 puff INHALATION Q4 PRN #18 g 04/17/20 05/28/20 Rx aerosol inhaler sulfamethoxazole 800 1 tab PO BID 5 Days #10 tab 05/24/20 05/28/20 Rx mg-trimethoprim 160 mg tablet Inpatient Medication List Acetaminophen (Acetaminophen 325 Mg Tab) 650 mg PO Q8H PRN PRN Reason: Fever or headache Stop: 06/30/20 15:59 Last Admin: 06/01/20 05:17 Dose: 650 mg Documented by: [id number] Aspirin (Aspirin 81 Mg Ectab) 81 mg PO QAM [facility] Stop: 06/29/20 08:59 Last Admin: 05/30/20 10:48 Dose: Not Given Documented by: [id number] Atorvastatin Calcium (Atorvastatin 40 Mg Tab) 80 mg PO QAM [facility] Stop: 06/29/20 08:59 Last Admin: 05/30/20 10:48 Dose: Not Given Documented by: [id number] Carvedilol (Carvedilol 12.5 Mg Tab) 12.5 mg PO BID [facility] Stop: 06/28/20 00:54 Last Admin: 05/29/20 09:07 Dose: Not Given Documented by: [id number] Admin: 05/29/20 02:08 Dose: Not Given Documented by: [id number] Fluticasone/Vilanterol (Fluticasone/Vilanterol 200/25mcg 14 Puffs/Inhaler) 1 puffs INH [facility] Stop: 06/28/20 08:59 Last Admin: 05/31/20 08:17 Dose: Not Given Documented by: [id number] Admin: 05/30/20 10:48 Dose: Not Given Documented by: [id number] Admin: 05/29/20 09:07 Dose: Not Given Documented by: [id number] Nicardipine HCl 25 mg/ Sodium (Chloride) 250 mls @ 25 mls/hr IV .Q10H [facility]; Protocol Stop: 06/28/20 15:44 Last Admin: 05/31/20 18:10 Dose: Not Given Documented by: [id number] Titration: 05/31/20 15:30 Dose: 0 mg/hr, 0 mls/hr Documented by: [id number] Admin: 05/31/20 10:34 Dose: Not Given Documented by: [id number] Titration: 05/31/20 07:16 Dose: 2.5 mg/hr, 25 mls/hr Documented by: [id number] Cosigned by: [id number] Admin: 05/31/20 06:05 Dose: 2.5 mg/hr, 25 mls/hr Documented by: [id number] Cosigned by: [id number] Titration: 05/31/20 05:02 Dose: 2.5 mg/hr, 25 mls/hr Documented by: [id number] Cosigned by: [id number] Titration: 05/31/20 02:30 Dose: 2.5 mg/hr, 25 mls/hr Documented by: [id number] Titration: 05/30/20 20:30 Dose: 0 mg/hr, 0 mls/hr Documented by: [id number] Admin: 05/30/20 13:02 Dose: 2.5 mg/hr, 25 mls/hr Documented by: [id number] Cosigned by: [id number] Titration: 05/30/20 13:02 Dose: 2.5 mg/hr, 25 mls/hr Documented by: [id number] Cosigned by: [id number] Titration: 05/30/20 11:30 Dose: 2.5 mg/hr, 25 mls/hr Documented by: [id number] Titration: 05/30/20 01:00 Dose: 0 mg/hr, 0 mls/hr Documented by: [id number] Titration: 05/29/20 19:16 Dose: 2.5 mg/hr, 25 mls/hr Documented by: [id number] Cosigned by: [id number] Admin: 05/29/20 16:37 Dose: 5 mg/hr, 50 mls/hr Documented by: [id number] Cosigned by: [id number] Acetaminophen (Ofirmev) 1,000 mg in 100 mls @ 400 mls/hr IV Q8H PRN PRN Reason: Fever Stop: 06/01/20 16:50 Last Infusion: 05/31/20 08:45 Dose: 0 mls/hr Documented by: [id number] Admin: 05/31/20 08:27 Dose: 400 mls/hr Documented by: [id number] Infusion: 05/30/20 23:30 Dose: 0 mls/hr Documented by: [id number] Admin: 05/30/20 23:13 Dose: 400 mls/hr Documented by: [id number] Infusion: 05/30/20 10:00 Dose: 0 mls/hr Documented by: [id number] Admin: 05/30/20 09:41 Dose: 400 mls/hr Documented by: [id number] Infusion: 05/29/20 17:32 Dose: 0 mls/hr Documented by: [id number] Admin: 05/29/20 17:17 Dose: 400 mls/hr Documented by: [id number] Sodium Chloride (Nss 1000ml) 1,000 mls @ 70 mls/hr IV .[id number] [facility] Stop: 06/29/20 17:59 Last Admin: 06/01/20 03:33 Dose: 70 mls/hr Documented by: [id number] Infusion: 06/01/20 03:33 Dose: 70 mls/hr Documented by: [id number] Admin: 05/31/20 14:56 Dose: 70 mls/hr Documented by: [id number] Infusion: 05/31/20 08:50 Dose: 70 mls/hr Documented by: [id number] Admin: 05/30/20 18:32 Dose: 70 mls/hr Documented by: [id number] Heparin Sodium/Dextrose (Heparin Sodium/Dextrose) 25,000 units in 500 mls @ 17 mls/hr IV .Q24H [facility]; Protocol Stop: 06/29/20 18:44 Last Titration: 06/01/20 07:24 Dose: 850 units/hr, 17 mls/hr Documented by: [id number] Cosigned by: [id number] Admin: 06/01/20 03:32 Dose: 800 units/hr, 16 mls/hr Documented by: [id number] Cosigned by: [id number] Titration: 06/01/20 03:32 Dose: 800 units/hr, 16 mls/hr Documented by: [id number] Cosigned by: [id number] Titration: 05/31/20 19:17 Dose: 800 units/hr, 16 mls/hr Documented by: [id number] Cosigned by: [id number] Titration: 05/31/20 07:16 Dose: 800 units/hr, 16 mls/hr Documented by: [id number] Cosigned by: [id number] Titration: 05/31/20 03:00 Dose: 800 units/hr, 16 mls/hr Documented by: [id number] Cosigned by: [id number] Admin: 05/30/20 19:23 Dose: 700 units/hr, 14 mls/hr Documented by: [id number] Cosigned by: [id number] Labetalol HCl (Labetalol Hcl Iv 5 Mg/Ml 20ml) 10 mg IV Q2H PRN PRN Reason: Hypertension Stop: 06/28/20 00:54 Last Admin: 05/29/20 12:17 Dose: 10 mg Documented by: [id number] Cosigned by: [id number] Admin: 05/29/20 06:23 Dose: 10 mg Documented by: [id number] Cosigned by: [id number] Ondansetron HCl (Ondansetron 4 Mg Od Tab) 4 mg PO Q8H PRN PRN Reason: nausea and vomiting Stop: 06/30/20 12:23 Last Admin: 05/31/20 12:40 Dose: 4 mg Documented by: [id number] Pantoprazole Sodium (Pantoprazole 40 Mg Tab) 40 mg PO QAM [facility] Stop: 07/01/20 08:59 Last Admin: 06/01/20 08:18 Dose: 40 mg Documented by: [id number] Verapamil HCl (Verapamil Hcl 40 Mg Tab) 80 mg PO TID [facility] Stop: 06/30/20 12:29 Last Admin: 06/01/20 08:18 Dose: 80 mg Documented by: [id number] Admin: 05/31/20 20:28 Dose: 80 mg Documented by: [id number] Admin: 05/31/20 13:13 Dose: 80 mg Documented by: [id number] Discontinued Medications Aspirin (Aspirin Chew 324 Mg) 324 mg PO NOW STA Stop: 05/28/20 22:20 Last Admin: 05/29/20 02:08 Dose: Not Given Documented by: [id number] Hydromorphone HCl (Hydromorphone Inj 0.5 Mg/0.5 Ml Syr) 0.5 mg IV NOW STA Stop: 05/28/20 19:42 Last Admin: 05/28/20 19:47 Dose: 0.5 mg Documented by: [id number] Lorazepam (Ativan) 1 mg in 2 mls @ 2 mls/min IV NOW STA Stop: 05/28/20 19:39 Last Admin: 05/28/20 20:10 Dose: 2 mls/min Documented by: [id number] Lorazepam (Ativan) 1 mg in 2 mls @ 2 mls/min IV NOW STA Stop: 05/28/20 21:18 Last Admin: 05/28/20 21:36 Dose: 2 mls/min Documented by: [id number] Lorazepam (Ativan) 0.5 mg in 1 mls @ 1 mls/min IV NOW STA Stop: 05/28/20 23:38 Last Admin: 05/28/20 23:41 Dose: 1 mls/min Documented by: [id number] Lorazepam (Ativan) 1 mg in 2 mls @ 2 mls/min IV NOW STA Stop: 05/29/20 13:19 Last Admin: 05/29/20 13:29 Dose: 2 mls/min Documented by: [id number] Lactated Ringer's (Lr) 1,000 mls @ 100 mls/hr IV .Q10H [facility] Stop: 06/28/20 13:29 Last Infusion: 05/30/20 19:00 Dose: 0 mls/hr Documented by: [id number] Admin: 05/30/20 12:56 Dose: 100 mls/hr Documented by: [id number] Infusion: 05/30/20 11:13 Dose: 100 mls/hr Documented by: [id number] Admin: 05/30/20 01:13 Dose: 100 mls/hr Documented by: [id number] Infusion: 05/30/20 01:13 Dose: 100 mls/hr Documented by: [id number] Admin: 05/29/20 15:20 Dose: 100 mls/hr Documented by: [id number] Lorazepam (Ativan) 1 mg in 2 mls @ 2 mls/min IV NOW STA Stop: 05/29/20 14:22 Last Admin: 05/29/20 14:40 Dose: 2 mls/min Documented by: [id number] Pantoprazole Sodium 40 mg/ (Syringe) 10 mls @ 5 mls/min IV DAILY@1100 [facility] Stop: 06/29/20 13:59 Last Admin: 05/31/20 12:19 Dose: 5 mls/min Documented by: [id number] Admin: 05/30/20 16:25 Dose: 5 mls/min Documented by: [id number] Lorazepam (Ativan) 1 mg in 2 mls @ 2 mls/min IV NOW STA Stop: 05/30/20 16:59 Last Admin: 05/30/20 18:32 Dose: Not Given Documented by: [id number] Ceftriaxone Sodium 2,000 mg/ (Dextrose) 70 mls @ 100 mls/hr IV Q12H [facility]; Protocol Stop: 06/01/20 17:59 Last Infusion: 05/30/20 20:25 Dose: 0 mls/hr Documented by: [id number] Admin: 05/30/20 19:36 Dose: 100 mls/hr Documented by: [id number] Acyclovir Sodium 525 mg/ (Dextrose) 110.5 mls @ 100 mls/hr IV Q8H [facility] Stop: 06/01/20 17:59 Last Infusion: 05/30/20 19:37 Dose: 0 mls/hr Documented by: [id number] Admin: 05/30/20 18:30 Dose: 100 mls/hr Documented by: [id number] Fluconazole (Diflucan) 200 mg in 100 mls @ 100 mls/hr IV DAILY [facility] Stop: 06/01/20 17:59 Last Infusion: 05/30/20 20:30 Dose: 0 mls/hr Documented by: [id number] Admin: 05/30/20 19:22 Dose: 100 mls/hr Documented by: [id number] Heparin Sodium (Porcine) 2,000 (units/ Syringe) 2 mls @ 10 mls/min IV ONE ONE Stop: 05/31/20 03:46 Last Admin: 05/31/20 03:39 Dose: 10 mls/min Documented by: [id number] Cosigned by: [id number] Ceftriaxone Sodium 2,000 mg/ (Dextrose) 50 mls @ 100 mls/hr IV Q12H [facility]; Protocol Stop: 06/02/20 08:59 Last Infusion: 05/31/20 21:04 Dose: 0 mls/hr Documented by: [id number] Admin: 05/31/20 20:27 Dose: 100 mls/hr Documented by: [id number] Infusion: 05/31/20 09:45 Dose: 0 mls/hr Documented by: [id number] Admin: 05/31/20 09:13 Dose: 100 mls/hr Documented by: [id number] Acyclovir Sodium 525 mg/ (Dextrose) 110.5 mls @ 100 mls/hr IV Q8H [facility] Stop: 06/02/20 08:59 Last Infusion: 05/31/20 19:20 Dose: 0 mls/hr Documented by: [id number] Admin: 05/31/20 10:18 Dose: 100 mls/hr Documented by: [id number] Ioversol (Optiray 320 125ml) 120 ml IV ONCE ONE Stop: 05/28/20 18:33 Last Admin: 05/28/20 18:33 Dose: 120 ml Documented by: [id number] Ioversol (Optiray 320 125ml) 119 ml IV ONCE ONE Stop: 05/29/20 12:48 Last Admin: 05/29/20 12:48 Dose: 119 ml Documented by: [id number] Labetalol HCl (Labetalol Hcl Iv 5 Mg/Ml 20ml) 10 mg IV NOW STA Stop: 05/28/20 21:18 Last Admin: 05/28/20 21:33 Dose: 10 mg Documented by: [id number] Cosigned by: [id number] Labetalol HCl (Labetalol Hcl Iv 5 Mg/Ml 20ml) 20 mg IV NOW STA Stop: 05/28/20 22:22 Last Admin: 05/28/20 22:23 Dose: 20 mg Documented by: [id number] Cosigned by: [id number] Labetalol HCl (Labetalol Hcl Iv 5 Mg/Ml 20ml) 40 mg IV NOW STA Stop: 05/28/20 22:32 Last Admin: 05/28/20 22:42 Dose: 40 mg Documented by: [id number] Cosigned by: [id number] Labetalol HCl (Labetalol Hcl Iv 5 Mg/Ml 20ml) 60 mg IV NOW STA Stop: 05/28/20 22:57 Last Admin: 05/28/20 23:03 Dose: 60 mg Documented by: [id number] Cosigned by: [id number] Lansoprazole (Lansoprazole 30 Mg Soltab) 30 mg PO QAM [facility] Stop: 06/28/20 08:59 Last Admin: 05/30/20 10:48 Dose: Not Given Documented by: [id number] Admin: 05/29/20 09:07 Dose: Not Given Documented by: [id number] Mercaptopurine (Mercaptopurine 50 Mg Tab) 75 mg PO HS [facility] Stop: 06/28/20 20:59 Last Admin: 05/29/20 20:29 Dose: Not Given Documented by: [id number] Morphine Sulfate (Morphine Sulfate 2 Mg/Ml Carp) 2 mg IV NOW STA Stop: 05/28/20 18:55 Last Admin: 05/28/20 18:57 Dose: 2 mg Documented by: [id number] Morphine Sulfate (Morphine Sulfate 2 Mg/Ml Carp) Confirm Administered Dose 2 mg .ROUTE .STK-MED ONE Stop: 05/28/20 18:57 Last Admin: 05/28/20 19:08 Dose: Not Given Documented by: [id number] Ondansetron HCl (Ondansetron Inj 2 Mg/Ml 2 Ml Vial) 4 mg IV NOW STA Stop: 05/28/20 21:25 Last Admin: 05/28/20 21:36 Dose: 4 mg Documented by: [id number] Trimethoprim/Sulfamethoxazole (Sulfamethoxazole/Trimethoprim Ds 800/160mg Tab) 1 tab PO BID [facility] Stop: 06/28/20 08:59 Last Admin: 05/30/20 10:48 Dose: Not Given Documented by: [id number] Admin: 05/29/20 20:29 Dose: Not Given Documented by: [id number] Admin: 05/29/20 09:07 Dose: Not Given Documented by: [id number] Description This is a 21 electrode EEG with a single channel dedicated to limited EKG. The electrodes were placed in accordance with the International 10-20 system. There is a posterior dominant rhythm of 10 Hz which is symmetrically distributed and attenuates with eye opening. There is a normal anterior to posterior organization. Photic stimulation and hyperventilation are not performed. There is a symmetric frontal beta rhythm. Intermittent left frontotemporal theta slowing is observed. There is occasional movement artifact. There are no epileptiform abnormalities. Interpretation This is a marginally abnormal awake/sleepy EEG revealing left frontotemporal slowing suggesting focal structural or functional cerebral abnormality. There are no epileptiform abnormalities. Findings not suggestive of subclinical seizure activity. Please see neurology visit notes for further clinical correlation. [facility] EEG Procedure Codes Indication for Procedure (1) Encephalopathy, hypertensive: (2) PRES (posterior reversible encephalopathy syndrome): (3) Encephalopathy: Neurology Neurology: [id number] EEG include record awake & drowsy
--- NOTE | 2020-06-01 10:00 | Neurology Progress Note ---
Date of Service June 01, 2020 Assessment & Plan (1) Cerebral venous thrombosis: (2) PRES (posterior reversible encephalopathy syndrome): (3) Encephalopathy, hypertensive: Suspected chronic cerebral venous thrombosis, improving hypertensive encephalopathy, evolving/stable foci of cortical cytotoxic edema within the left frontal, parietal, and occipital lobes potentially consistent with PRES, evolving venous infarcts, or nonspecific cerebritis. Patient is clinically stable although she does have a mild nonfluent motor or expressive aphasia and acalculia. (No finger anomia or left right confusion.) She does not have a hemiparesis. No evidence of subclinical seizure activity on this morning's EEG. Continue supportive medical care including ongoing blood pressure control. If this patient does have PRES I would expect continued improvement. However, this patient does have evidence of cerebral venous thrombosis within the right transverse sinus, sigmoid sinus, and posterior superior sagittal sinus (nonocclusive) and the observed foci of cortical cytotoxic edema could possibly suggest evolving venous infarcts. I agree that she will need anticoagulation and should continue with heparin drip with plan to transition to warfarin. Would recommend a follow-up noncontrast CT of the head today to exclude interval development of hemorrhage. Admission and Anticipated Discharge Date Admission Date: May 28, 2020 Subjective Follow-up for encephalopathy The patient is a 69-year-old female who presented to the emergency department May 28, 2020 with severe headache, confusion occurring in the context of hypertensive encephalopathy. She was found to have what appeared to be a chronic cerebral venous thrombosis as well. History notable for ulcerative colitis. She continues to have mild difficulty with expressive speech and complains of a persistent low-grade frontal headache this morning. She has evolving cytotoxic cortical edema within the left frontal, parietal, and occipital lobes on MRI. Her most recent MRI completed on May 30 suggested stability. Differential diagnosis included nonspecific cerebritis, PRES, or less likely venous insufficiency/developing venous infarct secondary to sinus thrombosis. She had a lumbar puncture completed on May 30 as well which was unremarkable. She has been seen by Dr. Sifuentes in neurological consultation on May 30 and for follow-up on May 31. I reviewed her clinical notes and agree with her assessment and plan. The patient did have an EEG completed this morning which was negative for epileptiform abnormalities but did reveal some intermittent left frontotemporal slowing. The patient has not had obvious clinical seizure activity and she is not prescribed an anticonvulsant currently. She is currently receiving intravenous heparin with intention to transition to warfarin. Her blood pressure is much better controlled. Review of Systems Eyes: no blind spots Neurologic: + headache(s); no localized weakness Results & Data ([facility]) Vital Signs (Past 12 Hours) Vital Signs Temp Pulse Pulse Resp BP Pulse Ox 06/01/20 07:21 37.1 C 73 16 135/59 L 96 06/01/20 04:00 36.7 C 80 17 131/76 96 06/01/20 00:00 36.9 C 85 20 131/68 95 Exam (Neuro) Neurologic: Oriented to:: Person and Place Cognitive Function: negative Alek culations Cortical Function: negative Right/Left Disorientation, Neglect of Body Part and Tactile Inattention Attention: Span Intact Language: Repeating Phrases (Able to repeat phrases but has mild difficulty); negative Naming Objects Speech Fluency: Dysfluency Speech Aphasia: Aphasia Fund of Knowledge: Vocabulary Cranial Nerves: Normal II, III, IV, and VII Motor Strength: Normal Lower Extremities and Normal Upper Extremities Muscle Bulk/Involuntary Movements: No Involuntary Movements Coordination: negative Dysdiadochokinesia, Finger-Nose Abnormal and Heel-Saunders Abnormal Deep Tendon Reflexes: Rt Biceps: 1+, Lt Biceps: 1+, Rt Patellar: 1+ and Lt Patellar: 1+ Coding Level of Care Code 41209 Subseq Hosp Care Lvl 3 Diagnoses Cerebral venous thrombosis G08 PRES (posterior reversible encephalopathy syndrome) I67.83 Encephalopathy, hypertensive I67.4
[2020-06-01] MEDS: FLUTICASONE/VILANTEROL 200/25MCG 14 PUFFS/INHALER INH SCH (10:22)
[2020-06-01] MEDS: ALPRAZolam 0.5 MG TABLET PO PRN ×2 (10:54→20:31)
--- NOTE | 2020-06-01 13:12 | CT Scan Report ---
CT head/brain wo con CLINICAL HISTORY: evolving venous infarcts vs PRES, r/o hemorrhage WORSENING MENTAL STATUS COMPARISON STUDY: CT scan dated 05/29/2020 MRI the brain dated 05/30/2020 TECHNIQUE: Axial CT of the brain is performed from the vertex to the skull base. IV contrast was not administered for this examination. A dose lowering technique was utilized adhering to the principles of ALARA. CT DOSE: 537.48 mGy.cm FINDINGS: There is persistent nonspecific cortical and subcortical edema within the left frontal parietal and o ccipital lobes. There is no acute hemorrhage. There is no midline shift. No calvarial fractures are v isualized. There is no evidence of pathologic ventricular dilatation. There is no evidence of acute sinusitis IMPRESSION: 1. Persistent nonspecific cortical and subcortical edema involving the left frontal parietal and occi pital lobes. 2. No evidence of acute hemorrhage. ACT 112: Negative or not required by law. Electronically signed by: Danny Baez M.D. 06/01/2020 1:11 PM
[2020-06-01 14:40] LABS: Partial Thromboplastin Ratio 1.5; Partial Thromboplastin Time 42.7 Seconds (21.0-31.0)
[2020-06-01] MEDS: WARFARIN SOD 5 MG TAB PO SCH (16:14)
--- NOTE | 2020-06-01 16:25 | Billing Data ---
Date of Service June 01, 2020 Coding Level of Care Code 73157 Subseq Hosp Care Lvl 3
[2020-06-01] MEDS: cefTRIAXone SODIUM 1,000 MG in DEXTROSE 5% 50 ML IV SCH (20:31)
[2020-06-01 21:27] LABS: Partial Thromboplastin Ratio 1.6
[2020-06-02 04:22] LABS: Basophils # (auto) 0.03 K/uL (0-0.2); Basophils % (auto) 0.5 %; Eosinophils # (auto) 0.41 K/uL (0-0.5); Eosinophils % (auto) 7.3 %; Hematocrit (blood only) 32.3 % (37-47); Hemoglobin 10.3 g/dL (12.0-16.0); Immature Granulocytes # (auto) 0.01 K/uL (0.00-0.02); Immature Granulocytes % (auto) 0.2 %; Lymphocytes # (auto) 2.44 K/uL (1.2-3.4); Lymphocytes % (auto) 43.3 %; Mean Corpuscular Hemoglobin 26.6 pg (25-34); Mean Corpuscular Hgb Conc 31.9 g/dL (32-36); Mean Corpuscular Volume 83.5 fL (80-100); Mean Platelet Volume 8.4 fL (7.4-10.4); Monocytes # (auto) 0.37 K/uL (0.11-0.59); Monocytes % (auto) 6.6 %; Neutrophils # (auto) 2.37 K/uL (1.4-6.5); Neutrophils % (auto) 42.1 %; Platelet Count 310 K/uL (130-400); RDW Coefficient of Variation 17.4 % (11.5-14.5); RDW Standard Deviation 51.9 fL (36.4-46.3); Red Blood Count 3.87 M/uL (4.2-5.4); White Blood Count 5.63 K/uL (4.8-10.8)
[2020-06-02 04:39] LABS: Partial Thromboplastin Ratio 2.1
[2020-06-02 04:40] LABS: BUN Creatinine Ratio 18.4 (10-20); Est GFR (African American) 107.4; Est GFR (Non-African American) 92.7; Potassium 3.1 mmol/L (3.5-5.1)
[2020-06-02 04:42] LABS: Partial Thromboplastin Time 57.7 Seconds (21.0-31.0)
[2020-06-02] MEDS: HEPARIN SODIUM/DEXTROSE 25,000 UNITS/500 ML BAG IV SCH ×2 (04:54→23:01)
[2020-06-02] MEDS: SODIUM CHLORIDE 0.9% 1000ML 1,000 ML IV SCH (04:54)
[2020-06-02] MEDS ORDERED: POTASSIUM CHLORIDE 20 MEQ/15 ML UDC PO STA (07:02)
[2020-06-02] MEDS: ACETAMINOPHEN 325 MG TAB PO PRN ×2 (07:53→16:08)
[2020-06-02] MEDS: PANTOprazole 40 MG TAB PO SCH (07:54)
[2020-06-02] MEDS: FLUTICASONE/VILANTEROL 200/25MCG 14 PUFFS/INHALER INH SCH (07:54)
[2020-06-02] MEDS: VERAPAMIL HCL 40 MG TAB PO SCH ×3 (07:54→20:11)
[2020-06-02] MEDS: ATORVASTATIN 40 MG TAB PO SCH (07:54)
[2020-06-02] MEDS: MERCAPTOPURINE 50 MG TAB PO SCH (07:54)
[2020-06-02] MEDS: ASPIRIN 81 MG ECTAB PO SCH (07:54)
--- NOTE | 2020-06-02 08:56 | Hospitalist Progress Note ---
Date of Service June 02, 2020 Assessment & Plan (1) Encephalopathy, hypertensive: 69yo female w/ hx of HTN and ulcerative colitis (on immunosuppression) who presented to the ED on 05/28/20 with altered mental status and hypertensive emergency. Found to have new neuro deficits and worsened AMS on 05/29/20 w/ imaging concerning for PRES syndrome. Mentation much improved 05/31/20 and in process of transitioning back to PO meds. AMS 2/2 to PRES syndrome, in setting of hypertensive encephalopathy - 05/31/20: stable, improving, afebrile overnight - imaging suggestive of PRES syndrome. CT initially suggestive of distal L MCA infarct, but MRI w/o DWI changes, so less likely. Per neurology read, small putaminal infarct - BP control w/ nicardipine drip goal 140-160 systolic. d/c'd nicardipine 05/31/20. - association of immunosuppressants w/ PRES syndrome? discussed w/ neurology. mercaptopurine and vedolizumab should not be contributory. - lipid panel wnl - repeat MRI 05/30/20 unchanged - 05/30/20 TTE: negative for interatrial shunt. EF 60-65%. - ordered EEG to r/o NCSE. low threshold for starting Keppra per neurology given increased risk for seizure in PRES syndrome. - after LP, started wt-based low dose heparin drip w/o bolus. 05/31/20: plan is to transition to PO warfarin tomorrow - 05/31/20 reordered tylenol 650 PO q8hprn ordered for fever or headache. delayed start time because had received 2g of IV tylenol overnight - 06/01/20: transitioned from wafarin gtt to warfarin 5mg PO qdd -PT/INR qAM, monitor INR with a goal of 2-3 nausea - mild, had been off of antiemetics PRN because of IV Zofran and caution of qt prolongation when used w/ the other medicines - reordered zofran PO prn after passed swallow study fever, monocytosis: resolved - fever and monocytosis have resolved 05/31/20 - no leukocytosis - less likely UC flare giving the resolution of absolute monocytosis s/p 1 dose of empiric abx - considered autoimmune vs tick-borne infection. 10/2019 lyme ab pos. bands neg. - ordered UA, and blood cultures. 10/2019 Lyme testing positive IgM and IgG w/ single positive band. Ordered lyme serology w/ reflex western blot and anaplasmosis smear. Ordered LP and CSF labs. Sent csf to lab. - will treat empirically w/ IV ceftriaxone (2g q12h) (decent gram pos and neg coverage), IV acyclovir (ideal wt based, 525mg q8h, and IV fluconazole (200mg daily) while LP pending. - update: CSF PCR panel negative for neisseria, HSV. Cryptococcal antigen neg. Held the IV ceftriaxone, IV acyclovir, and IV fluconazole after receiving 1 dose each. Ceftriaxone dose for UTI would be 2g q24, and patient has already received a dose of 2g today. - 05/31/20 restarted the empiric IV ceftriaxone 2g q12, discontinued acyclovir and fluconazole after discussion w/ neurologist based on pcr biofire results - check CBC and CMP in AM transverse sinus thrombosis - ED team discussed with [facility]: symptoms not thought to be secondary to chronic venous sinus thrombosis - currently not on anticoagulation - weighing risks vs benefits - if this is PRES, hemorrhage is more common in PRES patients on therapeutic anticoagulation - 05/30/20 update: per neurology, will anticoagulate on heparin drip d/t some concern for clot formation given the chronic venous sinus thrombosis (not uncommon in IBD) and small putaminal infarct - 05/31/20: after discussion w/ neurology, would like to have patient on PO ant icoagulant when home because the venous sinus thrombosis being acute vs chronic is unclear - 06/01/20: transitioned to PO warfarin as described above Ulcerative colitis - patient on vedolizumab infusion outpatient - previously holding PO meds as unable to tolerate PO - 06/01/20: restarting PO meds anemia - stable, Hb 11.7->10.8->11.3 anxiety - alprazolam 0.5mg bid prn asthma - fluticasone/vilanterol inhalers GERD - held prevacid qAM because unable to tolerate PO - added pantoprazole 40mg IV for stress ulcer ppx - 05/31/20 will d/c IV pantoprazole and start PO equivalent FENGI: heart healthy diet DVT ppx: warfarin 5mg PO Code status: full Dispo: transitioning from ICU bed/PCU status to med/surg (2) PRES (posterior reversible encephalopathy syndrome): (3) Transverse sinus thrombosis: (4) Ulcerative colitis: (5) Iron deficiency anemia: (6) Hypertension: (7) GERD (gastroesophageal reflux disease): (8) Asthma: (9) Anxiety: (10) Fever: (11) Monocytosis: (12) Elevated erythrocyte sedimentation rate: (13) Nausea: Admission and Anticipated Discharge Date Admission Date: May 28, 2020 Supervising Physician Co-Signing Physician Notes I personally examined the patient and verified all wright points of history and exam, discussed case, and agree with decision making with Dr Tillman speaking better. vitals noted nad word finding improved pres and venous thrombosis - continue BP control, continue coumadin, follow safe for medical otherwise as above Subjective Patient was seen at bedside this morning. She continues to have a mild-moderate headache, but otherwise feels well. Her speech fluency has dramatically improved compared to yesterday, and she displayed no frustration today with word-finding. She reports being optimistic about this improvement. She expresses concern over hearing recommendations for discharge to rehab first rather than straight home, as she does not want to go to rehab. She expressed intent to engage with PT/OT today. Patient is motivated to do what is nececssary to ensure her safety at home upon discharge. Patient repeatedly expressed gratitude for the care she has received during her stay thus far. Review of Systems Constitutional: no chills and no sweats Respiratory: no cough and no dyspnea Cardiovascular: no chest pain, no palpitations, no lightheadedness and no edema Gastrointestinal: no abdominal pain, no nausea, no vomiting, no constipation a nd no diarrhea/loose stools Genitourinary: no dysuria Neurologic: + headache(s); no dizziness Physical Exam Constitutional: cooperative and comfortable; no acute distress Respiratory: normal respiratory effort, lungs clear to auscultation Cardiovascular: RRR, no murmur, no edema Gastrointestinal (Abdomen): normal bowel sounds, soft, nontender, no hepatosplenomegaly Neurologic: PERRL, EOMI, accommodation nl, no face palsy, no dysarthria Speech / Cognition: normal speech, no expressive aphasia and no receptive aphasia Psychiatric: A+Ox3, euthymic affect Results & Data Results & Data ([facility]) Vital Signs (Past 12 Hours) Vital Signs Temp Pulse Pulse Resp BP BP Pulse Ox 06/02/20 07:43 36.8 C 97 H 20 135/66 98 06/02/20 03:49 37.6 C H 76 16 157/61 H 95 06/01/20 23:33 37.3 C 82 18 166/83 H 95 06/01/20 23:14 78 Resident Activity Tracking Resident Involvement: Resident Care Provided Care Provided: Adult Hospital Medicine (1) GERD (gastroesophageal reflux disease) Esophagitis presence: esophagitis presence not specified Qualified Code(s): K21.9 - Gastro-esophageal reflux disease without esophagitis (2) Ulcerative colitis Digestive disease complication type: without complication Ulcerative colitis location: unspecified ulcerative colitis location Qualified Code(s): K51.90 - Ulcerative colitis, unspecified, without complications (3) Asthma Asthma complication type: unspecified Asthma persistence: unspecified Asthma severity: unspecified severity Qualified Code(s): J45.909 - Unspecified asthma, uncomplicated
--- NOTE | 2020-06-02 11:49 | Neurology Progress Note ---
Date of Service June 02, 2020 Assessment & Plan (1) Cerebral venous thrombosis: (2) PRES (posterior reversible encephalopathy syndrome): Chronic cerebral venous thrombosis, improving hypertensive encephalopathy, stable foci of cortical cytotoxic edema within the left frontal, parietal, and occipital lobes likely consistent with PRES. Venous infarcts and nonspecific cerebritis possible but probably less likely. She has a mild expressive aphasia that continues to improve. Her acalculia has nearly resolved. She does not have a visual field deficit or signs of hemineglect. She does not have a hemiparesis. Continue supportive medical care including blood pressure control. Continue anticoagulation with heparin drip, transitioning to warfarin. Plan for anticoagulation for 6 to 12 months target INR 2.5. Going forward, if warfarin is difficult to manage, dabigatran could be an acceptable alternative anticoagulant option in this patient as it has also been studied in CVT. If patient's headache does not resolve over the next 1-2 weeks would consider starting topiramate. Admission and Anticipated Discharge Date Admission Date: May 28, 2020 Subjective Follow-up for cerebral venous thrombosis, suspected posterior reversible encephalopathy syndrome, hypertensive encephalopathy. The patient continues to complain of a low-grade frontal headache, not much change compared with yesterday. She does report that her speech seems to be improving, however. She notes much less difficulty with word finding compared with yesterday. No difficulty with comprehension. No vision loss or focal weakness. She has not had any seizures. Patient did complete the requested follow-up CT of the head yesterday which was negative for hemorrhage. There was persistent nonspecific cortical and subcortical edema involving the left frontal, parietal, and occipital lobes. This finding was observed by the interpreting radiologist. I reviewed the images as well and agree. Patient blood pressure was modestly elevated overnight although appears improved this morning. She remains on a heparin drip and has started warfarin in light of her cerebral venous thrombosis. As indicated previously, she has not had any clinical seizures and her EEG completed yesterday was negative for epileptiform abnormalities. Review of Systems Constitutional: no fever and no chills Eyes: no blind spots Neurologic: as per Subjective / HPI, + headache(s) and + abnormal speech; no localized weakness Results & Data ([facility]) Vital Signs (Past 12 Hours) Vital Signs Temp Pulse Pulse Resp BP BP Pulse Ox 06/02/20 07:43 36.8 C 97 H 20 135/66 98 06/02/20 03:49 37.6 C H 76 16 157/61 H 95 06/01/20 23:33 37.3 C 82 18 166/83 H 95 Exam (Neuro) Constitutional: well developed; no acute distress Neurologic: Oriented to:: Person, Place and Time Cognitive Function: Calculations (Significantly improved calculation ability noted today.) Memory: Short Term Intact and Remote Intact Attention: Span Intact and Concentration Intact Speech Fluency: negative Dysarthria Speech Aphasia: Aphasia (Patient has mild difficulty with naming small parts of objects. Language comprehension intact. Expressive aphasia significantly improved compared with yesterday.) Fund of Knowledge: Current Events, Past History and Vocabulary Cranial Nerves: Normal II, III, IV, , V, VII, VIII, IX, X, XI and XII Motor Strength: Normal Lower Extremities and Normal Upper Extremities Muscle Bulk/Involuntary Movements: No Involuntary Movements Coordination: negative Dysdiadochokinesia, Finger-Nose Abnormal and Heel-Saunders Abnormal PG Care Time/CCT Total # of Minutes Spent Total Time Spent with Patient: Total time spent is greater than 50% in coordination of care (as documented) at patient's floor/unit and/or counseling patient: Coding Level of Care Code 90701 Subseq Hosp Care Lvl 3 Diagnoses Cerebral venous thrombosis G08 PRES (posterior reversible encephalopathy syndrome) I67.83
[2020-06-02] MEDS: WARFARIN SOD 5 MG TAB PO SCH (16:08)
[2020-06-02] MEDS: POTASSIUM CHLORIDE CRTAB 20 MEQ TABCR PO SCH (16:10)
--- NOTE | 2020-06-02 18:26 | Billing Data ---
Date of Service June 02, 2020 Coding Level of Care Code 97978 Subseq Hosp Care Lvl 3
[2020-06-02 20:12] LABS: Lyme DNA PCR CSF or Synovial Not detected (Not Detected); Lyme DNA Source CSF
[2020-06-02] MEDS: cefTRIAXone SODIUM 1,000 MG in DEXTROSE 5% 50 ML IV SCH (20:13)
[2020-06-02] MEDS: ALPRAZolam 0.5 MG TABLET PO PRN (20:19)
[2020-06-02] MEDS ORDERED: ACETAMINOPHEN 500 MG TAB ONE (21:55)
[2020-06-03 07:13] LABS: INR 1.3 (0.9-1.1); Prothrombin Time 13.9 Seconds (9.0-12.0)
[2020-06-03 07:19] LABS: Basophils # (auto) 0.07 K/uL (0-0.2); Basophils % (auto) 1.5 %; Eosinophils # (auto) 0.44 K/uL (0-0.5); Eosinophils % (auto) 9.3 %; Hematocrit (blood only) 33.3 % (37-47); Hemoglobin 10.3 g/dL (12.0-16.0); Immature Granulocytes # (auto) 0.01 K/uL (0.00-0.02); Immature Granulocytes % (auto) 0.2 %; Lymphocytes # (auto) 1.94 K/uL (1.2-3.4); Lymphocytes % (auto) 41.1 %; Mean Corpuscular Hemoglobin 26.1 pg (25-34); Mean Corpuscular Hgb Conc 30.9 g/dL (32-36); Mean Corpuscular Volume 84.3 fL (80-100); Mean Platelet Volume 8.4 fL (7.4-10.4); Monocytes # (auto) 0.33 K/uL (0.11-0.59); Neutrophils # (auto) 1.93 K/uL (1.4-6.5); Neutrophils % (auto) 40.9 %; Platelet Count 307 K/uL (130-400); RDW Coefficient of Variation 17.5 % (11.5-14.5); RDW Standard Deviation 53.2 fL (36.4-46.3); Red Blood Count 3.95 M/uL (4.2-5.4); White Blood Count 4.72 K/uL (4.8-10.8)
[2020-06-03 07:31] LABS: BUN Creatinine Ratio 13.2 (10-20); Calcium 8.3 mg/dl (8.5-10.1); Creatinine Clr Calc Pharmacy 75.2 ml/min; Est GFR (African American) 104.7; Est GFR (Non-African American) 90.3; Magnesium 1.9 mg/dl (1.8-2.4); Potassium 3.4 mmol/L (3.5-5.1)
[2020-06-03 08:40] LABS: Partial Thromboplastin Time 82.7 Seconds (21.0-31.0)
[2020-06-03] MEDS: HEPARIN SODIUM/DEXTROSE 25,000 UNITS/500 ML BAG IV SCH (08:46)
[2020-06-03] MEDS: ASPIRIN 81 MG ECTAB PO SCH (08:51)
[2020-06-03] MEDS: FLUTICASONE/VILANTEROL 200/25MCG 14 PUFFS/INHALER INH SCH (08:51)
[2020-06-03] MEDS: VERAPAMIL HCL 40 MG TAB PO SCH ×3 (08:52→21:11)
[2020-06-03] MEDS: POTASSIUM CHLORIDE CRTAB 20 MEQ TABCR PO SCH ×2 (08:53→22:18)
[2020-06-03] MEDS: ATORVASTATIN 40 MG TAB PO SCH (08:53)
[2020-06-03] MEDS: PANTOprazole 40 MG TAB PO SCH (08:53)
[2020-06-03] MEDS: MERCAPTOPURINE 50 MG TAB PO SCH (08:53)
--- NOTE | 2020-06-03 10:12 | Hospitalist Progress Note ---
Date of Service June 03, 2020 Assessment & Plan (1) Encephalopathy, hypertensive: Cathy Goodson is a 69yo female a history of HTN and ulcerative colitis (on outpatient vedolizumab infusion) who presented to the ED on 05/28/20 with altered mental status and hypertensive emergency. Found to have new neuro deficits and worsened AMS on 05/29/20 with imaging concerning for PRES syndrome. Mentation dramatically improved on 05/31/20. Currently in the process of achieving therapeutic anticoagulation for cavernous sinus thrombosis. AMS 2/2 to PRES syndrome -imaging suggestive of PRES syndrome; CT initially suggestive of distal left MCA infarct, but MRI without DWI changes, favors PRES > infarct -low threshold for starting Keppra per neurology, given increased risk for seizure in PRES syndrome -nicardipine drip discontinued -repeat MRI 05/30/20 unchanged -05/30/20 TTE: negative for interatrial shunt. EF 60-65%. -EEG unremarkable -after LP, started low dose heparin drip; -05/31/20: began transition to PO warfarin; continue warfarin 5mg PO daily -PT/INR qAM, monitor INR with a goal of 2-3 -c/w tylenol 650mg PO q8h Fever: resolved as of 05/31/2020 -no leukocytosis -less likely UC flare giving the resolution of absolute monocytosis s/p 1 dose of empiric antibiotics -CSF PCR panel negative for neisseria, HSV, cryptococcal antigen -held the IV ceftriaxone, IV acyclovir, and IV fluconazole after receiving 1 dose each -05/31/20: restarted the empiric IV ceftriaxone 2g q12, discontinued acyclovir and fluconazole after discussion with neurologist based on PCR biofire results -CBC qAM Transverse sinus thrombosis -ED team discussed with [facility]: symptoms not thought to be secondary to chronic venous sinus thrombosis -05/30/20 update: per neurology, will anticoagulate on heparin drip due to concern for clot formation given the chronic venous sinus thrombosis (not uncommon in IBD) and small putaminal infarct -05/31/20: after discussion with neurology, would like to have patient on PO anticoagulant when home because the venous sinus thrombosis being acute vs chronic is unclear -06/01/20: transitioning to PO warfarin as described above Ulcerative colitis -patient on vedolizumab infusion outpatient -previously holding PO meds as unable to tolerate PO -06/01/20: restarting PO meds Anemia: stable -06/03/2020: Hgb today 10.3 Anxiety: stable -c/w alprazolam 0.5mg bid prn Asthma -c/w fluticasone/vilanterol inhaler GERD -c/w pantoprazole 40mg PO qd FENGI: heart healthy diet DVT ppx: warfarin 5mg PO Code status: full code Dispo: med/surg Admission and Anticipated Discharge Date Admission Date: May 28, 2020 Supervising Physician Co-Signing Physician Notes I personally examined the patient and verified all wright points of history and exam, discussed case, and agree with decision making with Dr Tillman speaking well. getting around well. discusses stress adn what to do about stress management vitals noted nad word finding improved no clearly notable focal neuro deficits. nc at mmm breathing unlabored no accessory muscles good effort skin no rashes no pallor or icterus pres and venous thrombosis - continue BP control, continue coumadin and follow INR, follow clinically stress/anxiety - extensive discussion on stress management/lifestyle considerations that can help otherwise as above, likely home once INR > 2, but ocntinue to follow how she does from PT / OT standpoint Subjective Patient was seen at bedside this morning. She continues to have a mild headache, but otherwise feels well. Speech today remains fluent. Reports good participation with PT and OT yesterday and is very happy they do not feel she will need to go to rehab before home. Patient repeatedly expressed gratitude for the care she has received during her stay thus far. Review of Systems Constitutional: + fatigue; no fever and no chills Respiratory: no cough and no dyspnea Cardiovascular: no chest pain, no palpitations, no lightheadedness and no calf pain Gastrointestinal: no abdominal pain, no nausea, no vomiting, no constipation and no diarrhea/loose stools Genitourinary: no dysuria Neurologic: + headache(s); no falls, no numbness, no paresthesia, no lack of coordination, no dizziness and no confusion Physical Exam Constitutional: well groomed, cooperative and comfortable; no acute distress Respiratory: normal respiratory effort, lungs clear to auscultation Cardiovascular: RRR, no murmur, no edema Neurologic: PERRL, EOMI, accommodation nl, no face palsy, no dysarthria Psychiatric: A+Ox3, euthymic affect Results & Data Results & Data ([facility]) Vital Signs (Past 12 Hours) Vital Signs Temp Pulse Resp BP Pulse Ox 06/03/20 07:21 36.9 C 80 16 164/76 H 98 06/02/20 22:48 36.6 C 74 16 155/82 H 100 Resident Activity Tracking Resident Involvement: Resident Care Provided Care Provided: Adult Hospital Medicine
--- NOTE | 2020-06-03 11:13 | Neurology Progress Note ---
Date of Service June 03, 2020 Assessment & Plan (1) Headache: (2) Cerebral venous thrombosis: (3) PRES (posterior reversible encephalopathy syndrome): Cerebral venous thrombosis further complicated by hypertensive encephalopathy/posterior reversible encephalopathy syndrome. Patient has been clinically improving. Her aphasia has resolved. She does not have any residual neurological deficits at this time. She continues to complain of a mild to moderate frontal headache, however. I suspect that her headache will gradually resolve on its own over time. However, after discussing the issue further with the patient this morning, if her headache remains a persistent problem tomorrow, would recommend starting topiramate at that time. Would start with 25 mg at bedtime for 5 nights then increase to 25 mg twice daily thereafter with plans for further up titration in the outpatient setting. She may require 100 mg or more of topiramate per day, depending on her clinical status going forward. Continue with anticoagulation. Would also plan on arranging an outpatient consultation with a neurovascular/stroke specialist at [facility] for second opinion regarding her long-term management of cerebral venous thrombosis. Her cerebral venous thrombosis is felt to be chronic and probably associated with her history of ulcerative colitis. She should have a hypercoagulable lab panel completed as well although results may be partially affected by warfarin and heparin administration at this time. She will need additional follow-up in neurology clinic. Admission and Anticipated Discharge Date Admission Date: May 28, 2020 Subjective Follow-up for cerebral venous thrombosis and posterior reversible encephalopathy syndrome The patient continues to complain of a mild to moderate frontal headache, responding modestly to acetaminophen. Her speech difficulty has resolved, no further expressive aphasia. No difficulty with language comprehension or reading. She continues to deny other associated neurologic symptoms such as vision loss or focal weakness. Her functional status continues to improve. Review of Systems Neurologic: as per Subjective / HPI and + headache(s); no localized weakness, no loss of sensation, no tremor(s), no dizziness and no abnormal speech Results & Data ([facility]) Vital Signs (Past 12 Hours) Vital Signs Temp Pulse Resp BP Pulse Ox 06/03/20 07:21 36.9 C 80 16 164/76 H 98 Laboratory Results WBC 4.72, hemoglobin 10.3, hematocrit 33.3, platelet count 307, INR 1.3, PTT 82.7, sodium 142, potassium 3.4, BUN 9, creatinine 0.67, glucose 96, magnesium 1.[address] of the head completed June 01, 2020 revealed persistent nonspecific cortical and subcortical edema involving the left frontal, parietal, and occipital lobes. No hemorrhage. Exam (Neuro) Neurologic: Oriented to:: Person, Place and Time Memory: Short Term Intact and Remote Intact Attention: Span Intact and Concentration Intact Speech Fluency: negative Dysarthria Speech Aphasia: negative Aphasia Fund of Knowledge: Current Events, Past History and Vocabulary Cranial Nerves: Normal II, III, IV, , V, VII, VIII, IX, X, XI and XII Motor Strength: Normal Lower Extremities and Normal Upper Extremities Muscle Bulk/Involuntary Movements: No Involuntary Movements Coordination: Normal Coding Level of Care Code 57082 Subseq Hosp Care Lvl 2 Diagnoses Headache R51.9 Cerebral venous thrombosis G08 PRES (posterior reversible encephalopathy syndrome) I67.83
[2020-06-03] MEDS: ACETAMINOPHEN 500 MG TAB PO PRN ×2 (12:10→21:11)
[2020-06-03] MEDS: WARFARIN SOD 5 MG TAB PO SCH (16:19)
[2020-06-03 16:44] LABS: Partial Thromboplastin Ratio 2.6
[2020-06-03 17:22] LABS: Partial Thromboplastin Time 72.2 Seconds (21.0-31.0)
--- NOTE | 2020-06-03 17:54 | Billing Data ---
Date of Service June 03, 2020 Coding Level of Care Code 09386 Subseq Hosp Care Lvl 3
[2020-06-03] MEDS: ALPRAZolam 0.5 MG TABLET PO PRN (21:11)
[2020-06-03] MEDS: CEFDINIR 300 MG CAP PO SCH (21:19)
[2020-06-04 00:09] LABS: Partial Thromboplastin Ratio 2.7
[2020-06-04 00:15] LABS: Partial Thromboplastin Time 75.1 Seconds (21.0-31.0)
[2020-06-04 07:35] LABS: Hematocrit (blood only) 32.5 % (37-47); Hemoglobin 10.4 g/dL (12.0-16.0); Mean Corpuscular Hemoglobin 26.9 pg (25-34); Mean Platelet Volume 8.8 fL (7.4-10.4); Platelet Count 392 K/uL (130-400); RDW Coefficient of Variation 17.8 % (11.5-14.5); RDW Standard Deviation 54.3 fL (36.4-46.3); Red Blood Count 3.87 M/uL (4.2-5.4); White Blood Count 4.98 K/uL (4.8-10.8)
[2020-06-04 07:56] LABS: INR 1.7 (0.9-1.1); Partial Thromboplastin Ratio 2.7; Prothrombin Time 17.4 Seconds (9.0-12.0)
[2020-06-04 08:00] LABS: Partial Thromboplastin Time 76.6 Seconds (21.0-31.0)
[2020-06-04] MEDS: ACETAMINOPHEN 500 MG TAB PO PRN ×3 (08:00→23:48)
[2020-06-04 08:02] LABS: 18KDIGG Band NON-REACTIVE; 23KDIGG Band NON-REACTIVE; 23KDIGM Band REACTIVE; 28KDIGG Band NON-REACTIVE; 30KDIGG Band NON-REACTIVE; 39KDIGG Band NON-REACTIVE; 39KDIGM Band NON-REACTIVE; 41KDIGG Band NON-REACTIVE; 41KDIGM Band NON-REACTIVE; 45KDIGG Band NON-REACTIVE; 58KDIGG Band NON-REACTIVE; 66KDIGG Band NON-REACTIVE; 93KDIGG Band NON-REACTIVE; Lyme Antibodies, WB IgG NEGATIVE (NEGATIVE); Lyme Antibodies, WB IgM NEGATIVE (NEGATIVE)
[2020-06-04] MEDS: MERCAPTOPURINE 50 MG TAB PO SCH (08:02)
[2020-06-04 08:14] LABS: BUN Creatinine Ratio 9.4 (10-20); Calcium 8.3 mg/dl (8.5-10.1); Est GFR (African American) 101.4; Est GFR (Non-African American) 87.5; Potassium 3.6 mmol/L (3.5-5.1)
[2020-06-04 08:24] LABS: Basophils # (auto) 0.01 K/uL (0-0.2); Basophils % (auto) 0.2 %; Eosinophils # (auto) 0.38 K/uL (0-0.5); Eosinophils % (auto) 7.6 %; Immature Granulocytes # (auto) 0.01 K/uL (0.00-0.02); Immature Granulocytes % (auto) 0.2 %; Lymphocytes # (auto) 2.53 K/uL (1.2-3.4); Lymphocytes % (auto) 50.8 %; Monocytes # (auto) 0.43 K/uL (0.11-0.59); Monocytes % (auto) 8.6 %; Neutrophils # (auto) 1.62 K/uL (1.4-6.5); Neutrophils % (auto) 32.6 %
[2020-06-04] MEDS: CEFDINIR 300 MG CAP PO SCH ×2 (09:54→20:38)
[2020-06-04] MEDS: VERAPAMIL HCL 40 MG TAB PO SCH ×3 (09:54→20:38)
[2020-06-04] MEDS: ASPIRIN 81 MG ECTAB PO SCH (09:55)
[2020-06-04] MEDS: ATORVASTATIN 40 MG TAB PO SCH (09:55)
[2020-06-04] MEDS: POTASSIUM CHLORIDE CRTAB 20 MEQ TABCR PO SCH ×2 (09:56→20:38)
[2020-06-04] MEDS: PANTOprazole 40 MG TAB PO SCH (09:56)
[2020-06-04] MEDS: FLUTICASONE/VILANTEROL 200/25MCG 14 PUFFS/INHALER INH SCH (10:12)
--- NOTE | 2020-06-04 11:47 | Neurology Progress Note ---
Date of Service June 04, 2020 Assessment & Plan (1) Headache: (2) Cerebral venous thrombosis: (3) PRES (posterior reversible encephalopathy syndrome): This patient continues to improve clinically. Her headache is currently low-grade and responding well to acetaminophen. At this point, we should be able to hold off on starting topiramate for long-term headache control. Her aphasia and cognitive deficits have resolved. Again, she does not have any focal weakness or vision loss or signs of hemineglect. Patient will need ongoing management of hypertension and will need to follow-up with her PCP for this issue. She will continue with warfarin for management of cerebral venous thrombosis. I would still like her to follow-up with a stroke specialist at [facility] for a second opinion regarding her long- term management of this issue. We will follow-up with hypercoagulable test results when available although her cerebral venous thrombosis may be related to her history of ulcerative colitis. This is her first identified venous thrombosis. As described previously, she has had multifocal areas of cytotoxic edema within the left cerebral hemisphere that have been felt to be consistent with an atypical posterior reversible encephalopathy syndrome although I wonder if her presentation was also related in part to her cerebral venous thrombosis. Venous infarcts were also considered in the differential but considered less likely. She does not have any residual neurologic deficits, there was no evidence of hemorrhagic transformation on follow-up imaging. Plan for additional outpatient neurology follow-up. Admission and Anticipated Discharge Date Admission Date: May 28, 2020 Subjective Follow-up for headache, cerebral venous thrombosis, posterior reversible encephalopathy syndrome The patient reports considerable improvement in her headache this morning, currently low-grade and responding well to acetaminophen. She denies experiencing any other associated neurologic symptoms such as change in vision, speech difficulty, focal weakness, or vertigo. Her blood pressure is modestly elevated and she is currently receiving verapamil and Coreg. She has been started on warfarin for cerebral venous thrombosis, INR 1.7 this morning. A modified hypercoagulable panel was sent yesterday, excluding protein C and protein S and Antithrombin III as these specific tests would be affected by warfarin and heparin administration. Review of Systems Neurologic: as per Subjective / HPI and + headache(s); no localized weakness, no loss of sensation and no abnormal speech Results & Data ([place]) Vital Signs (Past 12 Hours) Vital Signs Temp Pulse Resp BP Pulse Ox 01/07/21 07:59 36.7 C 88 16 160/73 H 97 Exam (Neuro) Neurologic: Oriented to:: Person, Place and Time Memory: Short Term Intact and Remote Intact Attention: Span Intact and Concentration Intact Speech Fluency: negative Dysarthria Speech Aphasia: negative Aphasia Fund of Knowledge: Current Events, Past History and Vocabulary Cranial Nerves: Normal II, III, IV, , V, VII, VIII, IX, X, XI and XII Motor Strength: Normal Lower Extremities and Normal Upper Extremities Coordination: negative Dysdiadochokinesia, Finger-Nose Abnormal and Heel-Saunders Abnormal Coding Level of Care Code 98295 Subseq Hosp Care Lvl 3 Diagnoses Headache R51.9 Cerebral venous thrombosis G08 PRES (posterior reversible encephalopathy syndrome) I67.83
[2020-06-04] MEDS: HEPARIN SODIUM/DEXTROSE 25,000 UNITS/500 ML BAG IV SCH (14:25)
[2020-06-04 14:38] LABS: Partial Thromboplastin Ratio 2.2
[2020-06-04 14:41] LABS: Partial Thromboplastin Time 61.8 Seconds (21.0-31.0)
--- NOTE | 2020-06-04 14:47 | Hospitalist Progress Note ---
Date of Service June 04, 2020 Assessment & Plan (1) Encephalopathy, hypertensive: Cathy Goodson is a 69yo female a history of HTN and ulcerative colitis (on outpatient vedolizumab infusion) who presented to the ED on 05/28/20 with altered mental status and hypertensive emergency. Found to have new neuro deficits and worsened AMS on 05/29/20 with imaging concerning for PRES syndrome. Mentation dramatically improved on 05/31/20. Currently in the process of achieving therapeutic anticoagulation for cavernous sinus thrombosis. AMS 2/2 to PRES syndrome -imaging suggestive of PRES syndrome; CT initially suggestive of distal left MCA infarct, but MRI without DWI changes, favors PRES > infarct -low threshold for starting Keppra per neurology, given increased risk for seizure in PRES syndrome -nicardipine drip discontinued -repeat MRI 05/30/20 unchanged -05/30/20 TTE: negative for interatrial shunt. EF 60-65%. -EEG unremarkable -after LP, started low dose heparin drip; -05/31/20: began transition to PO warfarin; continue warfarin 5mg PO daily -PT/INR qAM, monitor INR with a goal of 2-3 -c/w tylenol 650mg PO q8h Fever: resolved as of 05/31/2020 -no leukocytosis -less likely UC flare giving the resolution of absolute monocytosis s/p 1 dose of empiric antibiotics -CSF PCR panel negative for neisseria, HSV, cryptococcal antigen -held the IV ceftriaxone, IV acyclovir, and IV fluconazole after receiving 1 dose each -05/31/2020: restarted the empiric IV ceftriaxone 2g q12, discontinued acyclovir and fluconazole after discussion with neurologist based on PCR biofire results -CBC qAM Transverse sinus thrombosis -ED team discussed with [facility]: symptoms not thought to be secondary to chronic venous sinus thrombosis -05/30/2020 update: per neurology, will anticoagulate on heparin drip due to concern for clot formation given the chronic venous sinus thrombosis (not uncommon in IBD) and small putaminal infarct -06/01/2020: transitioning to PO warfarin as described above -06/04/2020: INR 1.7, likely discharge tomorrow Ulcerative colitis -patient on vedolizumab infusion outpatient -previously holding PO meds as unable to tolerate PO -06/01/20: restarting PO meds Anemia: stable -06/04/2020: Hgb today 10.4 Anxiety: stable -c/w alprazolam 0.5mg bid prn Asthma -c/w fluticasone/vilanterol inhaler GERD -c/w pantoprazole 40mg PO qd FENGI: heart healthy diet DVT ppx: warfarin 5mg PO Code status: full code Dispo: med/surg, likely discharge 06/05/2020 Admission and Anticipated Discharge Date Admission Date: May 28, 2020 Supervising Physician Co-Signing Physician Notes I personally examined the patient and verified all wright points of history and exam, discussed case, and agree with decision making with Dr Tillman no new complaints. maybe a slight difficulty w word finding today but otherwise nothing new - and definitely still markedly better than days ago vitals noted nad word finding improved no clearly notable focal neuro deficits. very questionable word finding difficulty. nc at mmm breathing unlabored no accessory muscles good effort skin no rashes no pallor or icterus pres and venous thrombosis - continue BP control, continue coumadin and follow INR (trending up nicely), follow clinically stress/anxiety - myself and R1 have both had extensive discussion on stress management/lifestyle considerations that can help otherwise as above, likely home once INR > 2 Subjective Patient seen at bedside this morning. Reports she feels even better than yesterday and continues to improve. Does not feel quite back to 100% but is pleased with her progress. Endorses minimal word-finding difficulty and fatigue. Appetite is good. Good engagement with PT/OT. Headache has significantly improved and is minimal at the moment. Patient endorses no new complaints or symptoms. Review of Systems Constitutional: + fatigue; no fever and no chills Respiratory: no cough and no dyspnea Cardiovascular: no chest pain, no palpitations, no lightheadedness, no edema and no calf pain Gastrointestinal: no abdominal pain, no nausea, no vomiting, no constipation and no diarrhea/loose stools Genitourinary: no dysuria Neurologic: + headache(s); no falls, no numbness, no paresthesia, no lack of coordination, no dizziness and no confusion Physical Exam Constitutional: + ill appearing, + altered mental status, well groomed, cooperative, comfortable and + lethargic; no acute distress Respiratory: normal respiratory effort, lungs clear to auscultation no respiratory distress and no labored breathing Cardiovascular: RRR, no murmur, no edema Gastrointestinal (Abdomen): normal bowel sounds, soft, nontender, no hepatosplenomegaly Neurologic: PERRL, EOMI, accommodation nl, no face palsy, no dysarthria CN's II-XI intact bilaterally, + confused and + obtunded; no focal motor deficits Speech / Cognition: normal speech, no expressive aphasia and no receptive aphasia Cranial Nerves: PERRL and normal accommodation; + abnormal facial strength Psychiatric: A+Ox3, euthymic affect Orientation: alert and oriented x 3 Affect: + anxious affect Results & Data Results & Data ([facility]) Vital Signs (Past 12 Hours) Vital Signs Temp Pulse Resp BP Pulse Ox 06/04/20 07:59 36.7 C 88 16 160/73 H 97 Resident Activity Tracking Resident Involvement: Resident Care Provided Care Provided: Adult Hospital Medicine
[2020-06-04] MEDS: WARFARIN SOD 5 MG TAB PO SCH (15:27)
--- NOTE | 2020-06-04 20:23 | Billing Data ---
Date of Service June 04, 2020 Coding Level of Care Code 46339 Subseq Hosp Care Lvl 3
[2020-06-04] MEDS: ALPRAZolam 0.5 MG TABLET PO PRN (20:38)
[2020-06-05 02:12] LABS: JCV Antibody POSITIVE
[2020-06-05 06:10] LABS: Hematocrit (blood only) 34.4 % (37-47); Hemoglobin 10.7 g/dL (12.0-16.0); Mean Corpuscular Hemoglobin 26.3 pg (25-34); Mean Corpuscular Hgb Conc 31.1 g/dL (32-36); Mean Corpuscular Volume 84.5 fL (80-100); Mean Platelet Volume 8.4 fL (7.4-10.4); Platelet Count 374 K/uL (130-400); RDW Coefficient of Variation 17.7 % (11.5-14.5); RDW Standard Deviation 54.3 fL (36.4-46.3); Red Blood Count 4.07 M/uL (4.2-5.4); White Blood Count 5.36 K/uL (4.8-10.8)
[2020-06-05 06:35] LABS: INR 1.4 (0.9-1.1); Partial Thromboplastin Ratio 2.4; Prothrombin Time 14.7 Seconds (9.0-12.0)
[2020-06-05 06:42] LABS: BUN Creatinine Ratio 13.4 (10-20); Calcium 8.8 mg/dl (8.5-10.1); Creatinine Clr Calc Pharmacy 78.7 ml/min; Est GFR (African American) 106.3; Est GFR (Non-African American) 91.7; Potassium 3.8 mmol/L (3.5-5.1)
[2020-06-05 06:49] LABS: Basophils # (auto) 0.02 K/uL (0-0.2); Basophils % (auto) 0.4 %; Eosinophils # (auto) 0.43 K/uL (0-0.5); Immature Granulocytes # (auto) 0.01 K/uL (0.00-0.02); Immature Granulocytes % (auto) 0.2 %; Lymphocytes # (auto) 3.03 K/uL (1.2-3.4); Lymphocytes % (auto) 56.5 %; Monocytes # (auto) 0.42 K/uL (0.11-0.59); Monocytes % (auto) 7.8 %; Neutrophils # (auto) 1.45 K/uL (1.4-6.5); Neutrophils % (auto) 27.1 %
[2020-06-05 07:04] LABS: Partial Thromboplastin Time 66.6 Seconds (21.0-31.0)
[2020-06-05] MEDS: VERAPAMIL HCL 40 MG TAB PO SCH ×3 (08:53→20:08)
[2020-06-05] MEDS: FLUTICASONE/VILANTEROL 200/25MCG 14 PUFFS/INHALER INH SCH (08:54)
[2020-06-05] MEDS: MERCAPTOPURINE 50 MG TAB PO SCH (08:54)
[2020-06-05] MEDS: ASPIRIN 81 MG ECTAB PO SCH (08:55)
[2020-06-05] MEDS: CEFDINIR 300 MG CAP PO SCH ×2 (08:55→20:11)
[2020-06-05] MEDS: POTASSIUM CHLORIDE CRTAB 20 MEQ TABCR PO SCH ×2 (08:56→20:11)
[2020-06-05] MEDS: PANTOprazole 40 MG TAB PO SCH (08:56)
[2020-06-05] MEDS: ATORVASTATIN 40 MG TAB PO SCH (08:56)
[2020-06-05] MEDS: ACETAMINOPHEN 500 MG TAB PO PRN ×2 (09:01→19:44)
[2020-06-05] MEDS ORDERED: WARFARIN SOD 2.5 MG TAB PO ONE (09:32)
[2020-06-05 14:27] LABS: Partial Thromboplastin Ratio 1.8
[2020-06-05 14:39] LABS: Partial Thromboplastin Time 50.1 Seconds (21.0-31.0)
--- NOTE | 2020-06-05 16:09 | Hospitalist Progress Note ---
Date of Service June 05, 2020 Assessment & Plan (1) Encephalopathy, hypertensive: Cathy Goodson is a 69yo female a history of HTN and ulcerative colitis (on outpatient vedolizumab infusion) who presented to the ED on 05/28/20 with altered mental status and hypertensive emergency. Found to have new neuro deficits and worsened AMS on 05/29/20 with imaging concerning for PRES syndrome. Mentation dramatically improved on 05/31/20. Currently in the process of achieving therapeutic anticoagulation for cavernous sinus thrombosis. AMS 2/2 to PRES syndrome -imaging suggestive of PRES syndrome; CT initially suggestive of distal left MCA infarct, but MRI without DWI changes, favors PRES > infarct -low threshold for starting Keppra per neurology, given increased risk for seizure in PRES syndrome -nicardipine drip discontinued -repeat MRI 05/30/20 unchanged -05/30/20 TTE: negative for interatrial shunt. EF 60-65%. -EEG unremarkable -after LP, started low dose heparin drip; -05/31/20: began transition to PO warfarin -PT/INR qAM, monitor INR with a goal of 2-3 -c/w tylenol 650mg PO q8h Fever: resolved as of 05/31/2020 -no leukocytosis -less likely UC flare giving the resolution of absolute monocytosis s/p 1 dose of empiric antibiotics -CSF PCR panel negative for neisseria, HSV, cryptococcal antigen -held the IV ceftriaxone, IV acyclovir, and IV fluconazole after receiving 1 dose each -05/31/2020: restarted the empiric IV ceftriaxone 2g q12, discontinued acyclovir and fluconazole after discussion with neurologist based on PCR biofire results -CBC qAM Transverse sinus thrombosis -ED team discussed with [facility]: symptoms not thought to be secondary to chronic venous sinus thrombosis -05/30/2020 update: per neurology, will anticoagulate on heparin drip due to concern for clot formation given the chronic venous sinus thrombosis (not uncommon in IBD) and small putaminal infarct -06/01/2020: transitioning to PO warfarin as described above -06/04/2020: INR 1.7, likely discharge tomorrow -06/05/2020: drop in INR from 1.7 to 1.4 likely secondary to PO intake of vitamin K-rich foods -will give warfarin 15mg PO today with plan to increase daily dose tomorrow from 5mg PO to 10mg PO Ulcerative colitis -patient on vedolizumab infusion outpatient -previously holding PO meds as unable to tolerate PO -06/01/20: restarting PO meds Anemia: stable -06/04/2020: Hgb today 10.4 -06/05/20: Hgb 10.7 Anxiety: stable -c/w alprazolam 0.5mg bid prn Asthma -c/w fluticasone/vilanterol inhaler GERD -c/w pantoprazole 40mg PO qd FENGI: heart healthy diet DVT ppx: warfarin 5mg PO Code status: full code Dispo: med/surg, discharge soon pending theraputic INR Admission and Anticipated Discharge Date Admission Date: May 28, 2020 Supervising Physician Co-Signing Physician Notes I personally examined the patient and verified all wright points of history and exam, discussed case, and agree with decision making with Dr Tillman no new complaints. discussed anxiety. vitals noted nad word finding improved no clearly notable focal neuro deficits. very questionable word finding difficulty. nc at mmm breathing unlabored no accessory muscles good effort skin no rashes no pallor or icterus pres and venous thrombosis - continue BP control, continue coumadin and follow INR (increase dose since INR started to go down again), follow clinically stress/anxiety - myself and R1 have both had extensive discussion on stress management/lifestyle considerations that can help - again today. otherwise as above, likely home once INR > 2 Subjective Patient seen at bedside this morning. She feels well, endorses mild anxiety and a mild headache improved after tylenol administration. Eager for discharge. Denies CP, SOB, nausea, vomiting, weakness, lightheadedness, dizziness, constipation, diarrhea, dysuria, or other symptoms. Review of Systems Review of Systems: All systems reviewed & are unremarkable except as noted in HPI & below Physical Exam Constitutional: cooperative and comfortable; no acute distress and no altered mental status Respiratory: normal respiratory effort, lungs clear to auscultation Cardiovascular: RRR, no murmur, no edema Neurologic: PERRL, EOMI, accommodation nl, no face palsy, no dysarthria Psychiatric: A+Ox3, euthymic affect Results & Data Results & Data ([facility]) Vital Signs (Past 12 Hours) Vital Signs Temp Pulse Resp BP BP Pulse Ox 06/05/20 15:32 36.5 C 86 16 138/78 96 06/05/20 07:25 36.4 C L 81 20 133/72 94 Resident Activity Tracking Resident Involvement: Resident Care Provided Care Provided: Adult Hospital Medicine
[2020-06-05] MEDS: WARFARIN SOD 10 MG TAB PO SCH (16:33)
--- NOTE | 2020-06-05 19:11 | Billing Data ---
Date of Service June 05, 2020 Coding Level of Care Code 95846 Subseq Hosp Care Lvl 3
[2020-06-05] MEDS: ALPRAZolam 0.5 MG TABLET PO PRN (20:08)
[2020-06-06] MEDS: HEPARIN SODIUM/DEXTROSE 25,000 UNITS/500 ML BAG IV SCH ×2 (00:12→23:12)
[2020-06-06 08:35] LABS: Hematocrit (blood only) 37.1 % (37-47); Hemoglobin 11.5 g/dL (12.0-16.0); Mean Corpuscular Hemoglobin 26.4 pg (25-34); Mean Corpuscular Volume 85.3 fL (80-100); Mean Platelet Volume 8.5 fL (7.4-10.4); Platelet Count 479 K/uL (130-400); RDW Coefficient of Variation 17.6 % (11.5-14.5); RDW Standard Deviation 54.9 fL (36.4-46.3); Red Blood Count 4.35 M/uL (4.2-5.4); White Blood Count 5.98 K/uL (4.8-10.8)
[2020-06-06] MEDS: CEFDINIR 300 MG CAP PO SCH ×2 (08:53→20:26)
[2020-06-06] MEDS: ASPIRIN 81 MG ECTAB PO SCH (08:53)
[2020-06-06] MEDS: MERCAPTOPURINE 50 MG TAB PO SCH (08:53)
[2020-06-06] MEDS: POTASSIUM CHLORIDE CRTAB 20 MEQ TABCR PO SCH ×2 (08:53→20:26)
[2020-06-06] MEDS: ATORVASTATIN 40 MG TAB PO SCH (08:53)
[2020-06-06] MEDS: PANTOprazole 40 MG TAB PO SCH (08:53)
[2020-06-06 08:54] LABS: INR 1.6 (0.9-1.1); Prothrombin Time 16.8 Seconds (9.0-12.0)
[2020-06-06] MEDS: FLUTICASONE/VILANTEROL 200/25MCG 14 PUFFS/INHALER INH SCH (08:54)
[2020-06-06] MEDS: VERAPAMIL HCL 40 MG TAB PO SCH ×3 (08:54→20:26)
[2020-06-06 09:08] LABS: Basophils # (auto) 0.04 K/uL (0-0.2); Basophils % (auto) 0.7 %; Eosinophils # (auto) 0.33 K/uL (0-0.5); Eosinophils % (auto) 5.5 %; Immature Granulocytes # (auto) 0.01 K/uL (0.00-0.02); Immature Granulocytes % (auto) 0.2 %; Lymphocytes # (auto) 3.62 K/uL (1.2-3.4); Lymphocytes % (auto) 60.5 %; Monocytes # (auto) 0.45 K/uL (0.11-0.59); Monocytes % (auto) 7.5 %; Neutrophils # (auto) 1.53 K/uL (1.4-6.5); Neutrophils % (auto) 25.6 %
[2020-06-06 09:15] LABS: BUN Creatinine Ratio 9.2 (10-20); Calcium 9.3 mg/dl (8.5-10.1); Creatinine Clr Calc Pharmacy 67.2 ml/min; Est GFR (African American) 94.9; Est GFR (Non-African American) 81.9; Potassium 4.1 mmol/L (3.5-5.1)
--- NOTE | 2020-06-06 13:46 | Hospitalist Progress Note ---
Date of Service June 06, 2020 Assessment & Plan (1) Encephalopathy, hypertensive: Cathy Goodson is a 69yo female a history of HTN and ulcerative colitis (on outpatient vedolizumab infusion) who presented to the ED on 05/28/20 with altered mental status and hypertensive emergency. Found to have new neuro deficits and worsened AMS on 05/29/20 with imaging concerning for PRES syndrome. Mentation dramatically improved on 05/31/20. Currently in the process of achieving therapeutic anticoagulation for cavernous sinus thrombosis. Transverse sinus thrombosis -ED team discussed with [facility]: symptoms not thought to be secondary to chronic venous sinus thrombosis -05/30/2020 update: per neurology, will anticoagulate on heparin drip due to concern for clot formation given the chronic venous sinus thrombosis (not uncommon in IBD) and small putaminal infarct -06/01/2020: transitioning to PO warfarin as described above -06/04/2020: INR 1.7, likely discharge tomorrow -06/05/2020: drop in INR from 1.7 to 1.4 likely secondary to PO intake of vitamin K-rich foods -will give warfarin 15mg PO today with plan to increase daily dose tomorrow from 5mg PO to 10mg PO -06/06/19: INR slightly increased to 1.6 this AM, will recheck this afternoon. Discussed plan with patient to continue to bridge with INR goal of 2-3. Plan to recheck this afternoon. - repeat INR 1.8 this afternoon - will continue to monitor and recheck INR tomorrow morning; if therapeutic, can plan for d/c home with close outpt f/u AMS 2/2 to PRES syndrome -imaging suggestive of PRES syndrome; CT initially suggestive of distal left MCA infarct, but MRI without DWI changes, favors PRES > infarct -low threshold for starting Keppra per neurology, given increased risk for seizure in PRES syndrome -nicardipine drip discontinued -repeat MRI 05/30/20 unchanged -05/30/20 TTE: negative for interatrial shunt. EF 60-65%. -EEG unremarkable -after LP, started low dose heparin drip; -05/31/20: began transition to PO warfarin -PT/INR qAM, monitor INR with a goal of 2-3 -c/w tylenol 650mg PO q8h Fever: resolved as of 05/31/2020 -no leukocytosis -less likely UC flare giving the resolution of absolute monocytosis s/p 1 dose of empiric antibiotics -CSF PCR panel negative for neisseria, HSV, cryptococcal antigen -held the IV ceftriaxone, IV acyclovir, and IV fluconazole after receiving 1 dose each -05/31/2020: restarted the empiric IV ceftriaxone 2g q12, discontinued acyclovir and fluconazole after discussion with neurologist based on PCR biofire results -06/03/20: discontinue ceftriaxone, start cefdinir 300mg po bid started -CBC qAM Ulcerative colitis -patient on vedolizumab infusion outpatient -previously holding PO meds as unable to tolerate PO -06/01/20: restarting PO meds Anemia: stable -06/04/2020: Hgb 10.4 -06/05/20: Hgb 10.7 -06/06/20: Hgb 11.5 Anxiety: stable -c/w alprazolam 0.5mg bid prn Asthma -c/w fluticasone/vilanterol inhaler GERD -c/w pantoprazole 40mg PO qd FENGI: heart healthy diet DVT ppx: warfarin 10mg PO Code status: full code Dispo: med/surg, discharge soon pending therapeutic INR Admission and Anticipated Discharge Date Admission Date: May 28, 2020 Supervising Physician Co-Signing Physician Notes I personally examined the patient and verified all wright points of history and exam, discussed case, and agree with decision making with Dr Zhong. only real complaint today is being anxious about why INR not going up faster. explained. answered questions to her satisfaction. vitals noted nad word finding improved no clearly notable focal neuro deficits. no word finding diffuclty. nc at mmm breathing unlabored no accessory muscles good effort skin no rashes no pallor or icterus pres and venous thrombosis - continue BP control, continue coumadin and follow INR (trending up again), follow clinically stress/anxiety - myself and R1 have both had extensive discussion on stress management/lifestyle considerations that can help otherwise as above, likely home once INR > 2 Subjective Patient seen and examined at bedside this morning. States that she overall feels well but does report some frustration and anxiety regarding the length of time that it is taking her INR to become therapeutic with the coumadin. Patient is eager for discharge home. However, she feels well and denies fever, chills, ARIAS, lightheadedness, dizziness, CP, SOB, abdominal pain, nausea, or vomiting. Review of Systems Constitutional: no fever, no chills and no fatigue Respiratory: no cough and no dyspnea Cardiovascular: no chest pain Gastrointestinal: no abdominal pain, no nausea and no vomiting Psychiatric: + anxiety Physical Exam Physical Exam: GENERAL: No acute distress. Well developed and well nourished. Vital signs reviewed as above. A/O x3. EYES: EOMI. HENT: Moist mucous membranes. RESPIRATORY: Clear to auscultation bilaterally. No wheezing, rales, or rhonchi. CARDIOVASCULAR: Regular rate and rhythm. No murmurs. ABDOMEN: Soft, non-tender and non-distended. No palpable masses. Normal bowel sounds. EXTREMITIES: No edema. Non-tender. PSYCHIATRIC: Cooperative. Appropriate mood and affect. Results & Data Results & Data ([facility]) Vital Signs (Past 12 Hours) Vital Signs Temp Pulse Resp BP Pulse Ox 06/06/20 13:27 97 H 142/82 H 06/06/20 08:38 36.6 C 88 16 158/87 H 96 Resident Activity Tracking Resident Involvement: Resident Care Provided Care Provided: Adult Hospital Medicine
[2020-06-06] MEDS: ACETAMINOPHEN 500 MG TAB PO PRN (14:17)
[2020-06-06] MEDS: WARFARIN SOD 10 MG TAB PO SCH (16:28)
[2020-06-06 16:36] LABS: INR 1.8 (0.9-1.1); Prothrombin Time 18.8 Seconds (9.0-12.0)
--- NOTE | 2020-06-06 18:57 | Billing Data ---
Date of Service June 06, 2020 Coding Level of Care Code 54253 Subseq Hosp Care Lvl 3
[2020-06-06] MEDS: ALPRAZolam 0.5 MG TABLET PO PRN (20:30)
[2020-06-06 21:38] LABS: Anti Cardiolipin Ab IgG <14 GPL; Anti Cardiolipin Ab IgM 13 MPL
[2020-06-07 07:09] LABS: INR 2.3 (0.9-1.1); Partial Thromboplastin Ratio 2.1; Prothrombin Time 22.9 Seconds (9.0-12.0)
[2020-06-07 07:10] LABS: Partial Thromboplastin Time 58.3 Seconds (21.0-31.0)
[2020-06-07] MEDS: ASPIRIN 81 MG ECTAB PO SCH (08:19)
[2020-06-07] MEDS: ATORVASTATIN 40 MG TAB PO SCH (08:19)
[2020-06-07] MEDS: MERCAPTOPURINE 50 MG TAB PO SCH (08:19)
[2020-06-07] MEDS: PANTOprazole 40 MG TAB PO SCH (08:19)
[2020-06-07] MEDS: VERAPAMIL HCL 40 MG TAB PO SCH ×2 (08:19→13:06)
[2020-06-07] MEDS: POTASSIUM CHLORIDE CRTAB 20 MEQ TABCR PO SCH (08:19)
[2020-06-07] MEDS: CEFDINIR 300 MG CAP PO SCH (08:20)
[2020-06-07] MEDS: FLUTICASONE/VILANTEROL 200/25MCG 14 PUFFS/INHALER INH SCH (08:20)
[2020-06-07] MEDS: ACETAMINOPHEN 500 MG TAB PO PRN (09:46)
[2020-06-07] MEDS: WARFARIN SOD 10 MG TAB PO SCH (16:07)
--- NOTE | 2020-06-07 17:06 | Discharge Summary ---
Date of Service June 07, 2020 Admission HPI Per Admitting Provider Cathy Byers is a 69yo C female presenting with ARIAS, AMS. Patient has been having ARIAS and muscle pains for the last week. This evening around 1730 she was complaining of a severe headache and was having some difficulty turning on the TV due to confusion. Patient had a headache most of the day today, started after a heated argument with her . She was seen by a chiropracter 2 days ago and had a neck manipulation. On arrival to the ER she was found to be markedly hypertensive at (documented in ER as 278/155) - ranging 175-278 / 89-155. Patient administered IV Labetalol with improvement in BP She is poor historian, confused upon arrival to the ER and somnolent after receiving Ativan. History obtained through discussion with ER attending. MRI imaging findings discussed with ER attending and Neurology at [facility]. Patient was evaluated by TeleStroke team from [facility] prior to admission ER Course: Ativan 1mg, 1mg, 0.5mg IV, Morphine 2mg IV, Dilaudid 0.5mg IV, Labetalol 10mg + 20mg +40mg +60mg IV, Zofran 4mg IV Admission Exam Per Admitting Provider General: patient somnolent, arousable, opens eyes to verbal command and tactile stimuli, follows simple commands then drifts back to sleep, nontoxic Skin: warm, dry, intact, no rashes or lesions HEENT: NC/AT, PERRL, anicteric sclera, conjunctiva without injection, external ear normal to inspection and nontender, nares patent, moist mucus membranes, dentition intact, no oropharyngeal lesions, neck supple, trachea midline, no LAD, no thyromegaly, no JVD, no papilledema appreciated on limited bedside fundoscopic exam Heart: +S1/S2, regular, no m/r/g Lungs: equal air entry bilaterally, no rales/rhonchi/wheezes Abd: +BS, soft, NT/ND, no masses/organomegaly/ascites Ext: warm, 2+ pulses in UE/LE bilaterally, no clubbing/cyanosis or edema Neuro: somnolent, arousable to verbal and tactile stimuli, able to state name, follows simple commands, moves all extremities Principal Diagnosis PRES syndrome, transverse sinus thrombosis Discharge Exam GENERAL: No acute distress. Well developed and well nourished. Vital signs reviewed. A/O x3. EYES: EOMI. Anicteric sclerae. HENT: Moist mucous membranes. RESPIRATORY: No respiratory distress. Able to speak in full sentences without increased respiratory effort. NEUROLOGIC: No focal neurological deficits. PSYCHIATRIC: Cooperative. Appropriate mood and affect. Discharge Data Allergies Allergy/AdvReac Type Severity Reaction Status Date / Time adalimumab [From Humira] Allergy Intermediate RED PATCHES Verified 05/28/20 19:02 ciprofloxacin Allergy Intermediate RASH Verified 05/28/20 19:02 codeine Allergy Intermediate HEART Verified 05/28/20 19:02 PALPATATIONS infliximab Allergy Intermediate RED Verified 05/28/20 19:02 BLOCHES ON CHEST nitrofurantoin Allergy Intermediate VASCULITIS--TOLD Verified 05/28/20 19:02 [From Macrodantin] NOT TO TAKE AGAIN. adhesive AdvReac Mild SORE RED Verified 05/28/20 19:02 SKIN losartan AdvReac Mild COUGH Verified 05/28/20 19:02 lisinopril AdvReac Unknown Cough Verified 05/07/20 12:25 Consultations 05/28/20 22:19 ED Decision to Admit Stat 05/29/20 12:32 Consult Neurology Routine 05/30/20 01:05 Consult Case Management - Discharge Planning Routine Ordered Studies 05/28/20 18:16 CT angio head w con Stat CT angio neck with con Stat CT head/brain wo con Stat 05/28/20 19:01 MR venography head wo con Stat 05/28/20 19:12 MR brain wo con Stat 05/29/20 12:21 CT head/brain wo con Stat 05/29/20 12:32 CT angio head w con Stat 05/29/20 13:28 MR brain wo con Stat 05/30/20 08:00 MR brain wo con Routine 05/30/20 15:19 FL lumbar puncture diagnostic Urgent 06/01/20 10:22 CT head/brain wo con Routine Hospital Course (1) Encephalopathy, hypertensive: Cathy Goodson is a 69yo female a history of HTN and ulcerative colitis (on outpatient vedolizumab infusion) who presented to the ED on 05/28/20 with altered mental status and hypertensive emergency. Found to have new neuro deficits and worsened AMS on 05/29/20 with imaging concerning for PRES syndrome. Mentation dramatically improved on 05/31/20. Currently in the process of achieving therapeutic anticoagulation for cavernous sinus thrombosis. Transverse sinus thrombosis -ED team discussed with [facility]: symptoms not thought to be secondary to chronic venous sinus thrombosis -05/30/2020 update: per neurology, will anticoagulate on heparin drip due to concern for clot formation given the chronic venous sinus thrombosis (not uncommon in IBD) and small putaminal infarct -06/01/2020: transitioned to PO warfarin as described above -INR monitored for goal of 2-3 - On 06/05/20, patient with slight drop in INR likely secondary to PO intake of vitamin K-rich foods -- educated patient on effect of vitamin K-rich foods and anticoagulation - As of 06/07/20, INR was therapeutic at 2.3. Subsequently discharged home. - Educated patient on need for close f/u and would plan for f/u on Monday06/09/20 with repeat INR - Patient educated on risk of bleeding and s/s to look out for and s/s to call PCP and/or return to ED for evaluation AMS 06/30 to PRES syndrome -imaging suggestive of PRES syndrome; CT initially suggestive of distal left MCA infarct, but MRI without DWI changes, favors PRES > infarct -low threshold for starting Keppra per neurology, given increased risk for seizure in PRES syndrome - Patient received nicardipine drip for some time but was discontinued on 05/30 -repeat MRI 05/30/20 unchanged -05/30/20 TTE: negative for interatrial shunt. EF 60-65%. -EEG unremarkable -after LP, started low dose heparin drip and on 05/31/20, began transition to PO warfarin Fever: resolved as of 05/31/2020 -no leukocytosis -less likely UC flare giving the resolution of absolute monocytosis s/p 1 dose of empiric antibiotics -CSF PCR panel negative for neisseria, HSV, cryptococcal antigen -held the IV ceftriaxone, IV acyclovir, and IV fluconazole after receiving 1 dose each -05/31/2020: restarted the empiric IV ceftriaxone 2g q12, discontinued acyclovir and fluconazole after discussion with neurologist based on PCR biofire results -06/03/20: discontinue ceftriaxone, start cefdinir 300mg po bid started; discontinued cefdinir on 06/07/20 Ulcerative colitis -patient on vedolizumab infusion outpatient Anemia: stable Anxiety: stable -c/w alprazolam 0.5mg bid prn Asthma -c/w fluticasone/vilanterol inhaler GERD -c/w pantoprazole 40mg PO qd FENGI: heart healthy diet Code status: full code Dispo: discharge home Total Time Total Time Spent Total Time Spent (In Minutes): <30 Discharge Plan Discharge Items Patient Disposition: Home - Self-Care Reason For Visit: HYPERTENSIVE EMERGENCY Discharge Diagnosis: PRES syndrome, transverse sinus thrombosis Activity: Per Instructions section Non-emergency contact: Primary Care Provider and Neurologist Call non-emergency contact if: you have any medication questions, your symptoms worsen, your pain is not controlled and your pain is worsening Follow-up/Referrals: Jerry Smith MD [Physician] - Mar Whitaker MD [Primary Care Provider] - Diet: Regular Addtl Attending Provider Instructions: Cathy, It was our pleasure to care for you at [facility] from 05/28/20 to 06/07/20. You initially presented to the emergency department here with confusion and hypertensive emergency (high blood pressure causing associated symptoms). With imaging and neurology consultation, you were diagnosed with PRES syndrome. This is a condition, likely related to the very high blood pressure, where there was swelling of the vasculature of the brain. It is different from a stroke - you did not have a stroke. Your blood pressures have been well controlled with a change in medication, Verapamil. Please continue this new medication as prescribed to adequately control your blood pressure. As we discussed, you should follow up with your primary care physician for further management of your blood pressure. As an incidental finding, you were found to have "transverse sinus thrombosis" which are small blood clots in the veins in your brain. For this problem, we have started you on a blood thinner, Coumadin. You will be on this medication for the foreseeable future and you will need to follow up with both your primary care physician and Dr. Smith. Follow up with your primary care physician by 06/09/20 for an INR check and follow up. As we discussed, with you being on the Coumadin, you need to watch your dietary intake of vitamin K rich foods. You can start to keep a food journal to ensure that your vitamin K rich foods stay consistent from week to week. You need to monitor for bleeding. As we discussed, if you were to have a nose bleed or a small cut, apply pressure for 10 minutes (with looking at a clock for accurate timing) to see if you are able to control the bleeding. If bleeding persists, call your doctor or go to the ED. You should also contact your doctor or go to the ED for other signs of bleeding including blood in the stool or dark black stools. Additionally, we talked to you a lot about your anxiety. It is important that you work on mindfulness, thoughtful redirection, and controlling your anxiety. You should talk to your primary care physician about more ways to help decrease your anxiety. If you have any concerns or if symptoms worsen, you can always return to the emergency department and/or call your primary care physician. Pending Studies at Discharge: No Stand-Alone Forms: My [facility] [place] [employer], Smoking Cessation Medications and DC Order Prescriptions: New warfarin 5 mg tablet 7.5 mg PO DAILY@1600 30 Days Qty: 45 RF: 0 atorvastatin 80 mg tablet 80 mg PO QAM 30 Days Qty: 30 RF: 0 verapamil 240 mg capsule,ext rel. pellets 24 hr 240 mg PO DAILY Qty: 30 RF: 0 Continued hydrocortisone 2.5 % cream 1 appln topical DAILY PRN (Reason: itching) Qty: 1 RF: 0 Entyvio 300 mg recon soln See Rx Instructions IV .COMPLEX RF: 0 lansoprazole [Prevacid] 30 mg capsule,delayed release(DR/EC) 30 mg PO QAM Qty: 90 RF: 1 mercaptopurine 50 mg tablet 75 mg PO HS Qty: 135 RF: 1 ondansetron HCl [Zofran] 4 mg tablet 4 mg PO Q8H PRN (Reason: nausea and vomiting) Qty: 30 RF: 1 Breo Ellipta 200-25 mcg/dose blister with device 1 inh INH QAM Qty: 3 RF: 1 albuterol sulfate [ProAir HFA] 90 mcg/actuation HFA aerosol inhaler 1 - 2 puff INHALATION Q4 PRN (Reason: Shortness Of Breath Or Wheezing) Qty: 18 RF: 2 alprazolam [Xanax] 0.5 mg tablet 0.5 mg PO BID PRN (Reason: Anxiety) Qty: 30 RF: 0 loratadine [Claritin] 10 mg Tablet 10 mg PO DAILY PRN (Reason: Congestion) RF: 0 cholecalciferol (vitamin D3) [Vitamin D3] 2,000 unit Capsule 2,000 unit PO HS RF: 0 Discontinued carvedilol 12.5 mg tablet 12.5 mg PO BID Qty: 180 RF: 3 sulfamethoxazole-trimethoprim [Bactrim DS] 800-160 mg tablet 1 tab PO BID 5 Days Qty: 10 RF: 1 Discharge Orders: Discharge Order (Routine); Ordered 06/07/20 Ordered By: Mi Caldera/Other Patient Handouts: A1C Admission Data Admit Date/Time: 05/28/20 23:38 Attending Provider: Mahendra Ordonez Admit Provider: Idania Ma Primary Care Provider: Mar Whitaker Other Providers: Idania Ma ; Ekaterina Sifuentes Other Interventions: Discharge Summary Assessment (RN) Last Done: 06/07/20 16:08 Supervising Physician Co-Signing Physician Notes I personally examined the patient and verified all wright points of history and exam, discussed case, and agree with decision making with Dr Zhong. feelingup to going home. discussed plans/care and answered all quetsions to the best of my ability vitals noted nad word finding improved no clearly notable focal neuro deficits. no word finding difficulty. nc at mmm breathing unlabored no accessory muscles good effort skin no rashes no pallor or icterus PRES and venous thrombosis - continue BP control, continue coumadin and follow INR closely as outpt. safe for home / PCP and neuro follow up stress/anxiety - myself and R1 have both had extensive discussion on stress management/lifestyle considerations that can help stable for home Resident Activity Tracking Resident Involvement: Resident Care Provided Care Provided: Adult Hospital Medicine
--- NOTE | 2020-06-07 18:36 | Billing Data ---
Date of Service June 07, 2020 Coding Level of Care Code D/C Day Management <30 mins
[2020-06-09 07:31] LABS: B2 Glycoprotein IgG <9 SGU (<=20); B2 Glycoprotein IgM <9 SMU (<=20)
== END 2020-06-07 16:05 | disposition home or self-care (01) | DRG 71 ==
LOC: ED 18:05 → SUATTDRO 23:38 → 2S 23:38 → 1E 05-29 16:33 → 3N 06-02 13:36

== ENCOUNTER 2023-11-11 04:11 | Observation (INO) ==
[2023-11-11] MEDS: dexAMETHasone**PF** 10 MG/ML VIAL IV ONE (05:04)
[2023-11-11] MEDS: ALBUT/IPRATROP 3MG/0.5MG NEB 3 ML VIAL NEB STA ×3 (05:04→07:07)
[2023-11-11 05:24] LABS: Basophils # (auto) 0.13 K/uL (0.00-0.20); Basophils % (auto) 1.2 %; Eosinophils # (auto) 0.35 K/uL (0.00-0.50); Eosinophils % (auto) 3.3 %; Hemoglobin 14.3 g/dl (12.0-16.0); Immature Granulocytes # (auto) 0.05 K/uL (0.01-0.20); Immature Granulocytes % (auto) 0.5 %; Lymphocytes # (auto) 2.38 K/uL (1.20-3.40); Lymphocytes % (auto) 22.2 %; Mean Corpuscular Hemoglobin 26.6 pg (25.0-34.0); Mean Corpuscular Hgb Conc 32.5 g/dL (32.0-36.0); Mean Corpuscular Volume 81.8 fL (80.0-100.0); Mean Platelet Volume 9.5 fL (9.4-12.4); Monocytes # (auto) 0.83 K/uL (0.11-0.59); Monocytes % (auto) 7.8 %; Neutrophils # (auto) 6.96 K/uL (1.40-6.50); Platelet Count 587 K/uL (130-400); RDW Coefficient of Variation 18.9 % (11.5-14.5); RDW Standard Deviation 53.5 fL (36.4-46.3); Red Blood Count 5.38 M/uL (4.20-5.40)
[2023-11-11 05:37] LABS: Albumin Globulin Ratio 1.1 (0.9-2); Albumin Level 3.8 gm/dl (3.4-5.0); BUN Creatinine Ratio 10.8 (10-20); Bilirubin,Total 0.8 mg/dl (0.2-1.0); Calcium 8.8 mg/dl (8.6-10.3); Creatinine Clr Calc Pharmacy 67.9 ml/min; Est GFR (African American) 93.8 ml/min; Est GFR (Non-African American) 80.9 ml/min; Globulin 3.5 gm/dl (2.5-4.0); Potassium 3.9 mmol/L (3.5-5.1); Total Protein 7.3 gm/dl (6.0-8.3)
[2023-11-11 05:42] LABS: Troponin I High Sensitivity 7.1 pg/ml (0-14)
[2023-11-11 05:45] LABS: Appearance Urine Clear (Clear); Bacteria Urine Automated None Seen (None Seen); Bilirubin Urine Negative (Negative); Blood Urine 1+ (Negative); Cast Urine Automated 0-2 /lpf (0-2); Color Urine Yellow; Epithelial Cell Urine Auto 0-2 /hpf (0-2); Glucose Urine UA Negative (Negative); Ketones Urine Negative (Negative); Leukocyte Esterase Urine Negative (Negative); Nitrite Urine Negative (Negative); Protein Urine 1+ (Negative); RBC Urine Automated 0-2 /hpf (0-2); Specific Gravity Urine 1.006 (1.000-1.030); Urobilinogen Urine Negative (Negative); WBC Urine Automated 0-5 /hpf (0-5)
[2023-11-11 05:49] LABS: Adenovirus PCR Not Detected (NotDetected); Bordetella parapertussis PCR Not Detected (NotDetected); Bordetella pertussis PCR Not Detected (NotDetected); Chlamydia pneumoniae PCR Not Detected (NotDetected); Coronavirus 229E PCR Not Detected (NotDetected); Coronavirus CoV-2 (COVID19)PCR Not Detected (NotDetected); Coronavirus HKU1 PCR Not Detected (NotDetected); Coronavirus NL63 PCR Not Detected (NotDetected); Coronavirus OC43PCR Not Detected (NotDetected); Human Metapneumovirus PCR Not Detected (NotDetected); Influenza A PCR Not Detected (NotDetected); Influenza B PCR Not Detected (NotDetected); Mycoplasma pneumoniae PCR Not Detected (NotDetected); Parainfluenza Virus 1 PCR Not Detected (NotDetected); Parainfluenza Virus 2 PCR Not Detected (NotDetected); Parainfluenza Virus 3 PCR Not Detected (NotDetected); Parainfluenza Virus 4 PCR Not Detected (NotDetected); Respiratory Syncytial VirusPCR Not Detected (NotDetected); Rhinovirus/Enterovirus PCR Not Detected (NotDetected)
--- NOTE | 2023-11-11 05:52 | Emergency Department Note ---
Impression & Plan Wheezing, SOB (shortness of breath) ED Provider Note NAME: SMILEY AGUIRRE AGE: 73 SEX: Female INFORMANT: Patient ED PROVIDER(S): Surinder Wagoner MD CHIEF COMPLAINT: Shortness of breath, wheezing PLAN: Disposition: Admitted Outpatient prescription management: none Referral: None MEDICAL DECISION MAKING: Patient presented because of wheezing. She had a DuoNeb initiated. Patient had already taken 10 mg of prednisone prior to arrival. Patient was given 6 mg of Decadron. She was exposed to respiratory illness. BioFire testing was performed. CBC, chemistry panel and cardiac troponin were negative. BNP was elevated. Patient does not have any peripheral edema or history of CHF. Echocardiogram from 2020 was reviewed and did not reveal any valvular abnormalities or decreased EF. After the second treatment patient was reassessed. She still feeling short of breath. She notes it is worse with laying flat. Still feels some wheezing. Auscultation is improved. Patient was given a third neb treatment. CT imaging of the chest was ordered due to travel history. Bio fire test was negative. In light of the elevated BNP, frequent ectopy on ECG and monitoring, and persistence of symptoms further management in the hospital was felt to be appropriate hospital. Consultation was made with the [facility] service. Case discussed and diagnostics were reviewed. Patient was evaluated in the ER for further management. Care/management discussed with: manager endoscopy Level of care consideration(s): After review of the information above and other included data, I feel the patient requires escalation of care to admission Triage Nursing notes: reviewed and agree them. Vital Signs: reviewed and remarkable for no significant abnormalities Additional History obtained from: none Chronic Medical/Social Conditions affecting care: Asthma Prior/ Outside/ External records reviewed: none Differential Diagnosis: Reactive airway disease, pneumonia, pneumothorax, COPD, CHF, infections, cardiac ischemia, pulmonary embolism, musculoskeletal, gastrointestinal, as well as other pathologies. Diagnostics, independently interpreted by me: ECG: Twelve-lead ECG reveals sinus rhythm at 85 bpm. Frequent PVCs are present. No ST elevation. When compared to 07/02/2020 the frequent PVCs are new. Cardiac Monitoring: Cardiac monitoring ordered by me: The patient was placed on continuous cardiac monitoring and observed. It revealed a normal sinus rhythm at 88 bpm with frequent PVCs. Medical decision rules: none Imaging studies: Chest x-ray. Findings: A chest x-ray was performed and revealed no pneumothorax, effusion, infiltrate, pulmonary edema, free air under the diaphragm, or wide mediastinum. I refer you to the EMR for further details. HPI: 73 year old Female arrives for evaluation of shortness of breath and wheezing.. This started over the last few days and is worsening. The patient also notes the following associated symptoms, moderate cough, orthopnea. Patient has a history of asthma. She was exposed to a respiratory illness. She was seen at the primary office and treated with a Z-Leandro. She was trying her inhalers and they were not working. Current pain is rated as 0/10. Pt denies LOC, headache, fevers, chills, diaphoresis, visual changes, neck pain, chest pain, nausea, vomiting, abdominal pain, back pain, leg swelling, melena, hematochezia, urinary symptoms, numbness, weakness, lymphadenopathy, rash, or other complaints. . PAST MEDICAL HISTORY: See Below, asthma, PRES syndrome PAST SURGICAL HISTORY: See Below, SOCIAL HISTORY: See Below, HOME MEDICATIONS: See Below ALLERGIES: See Below VITALS: See Below PHYSICAL EXAMINATION: GENERAL: Awake, alert, uncomfortable-appearing, in no distress HENT: Normocephalic, atraumatic. Oropharynx unremarkable. EYES: Normal conjunctiva. Sclera non-icteric. NECK: Inspection normal. Non-tender. Supple. No nuchal rigidity. FROM. No masses. RESPIRATORY: Scattered wheezes bilaterally. No rales. Increased respiratory effort. CARDIAC: Normal rate. Normal rhythm. No murmurs. No rubs. Extremities warm and well perfused. Pulses equal. No JVD. GI: Soft, non-distended. No tenderness to palpation. No rebound or guarding. No masses. RECTAL: Deferred. MUSCULOSKELETAL: Atraumatic. Chest examination reveals no tenderness. The back is symmetrical on inspection without obvious abnormality. There is no CVA tenderness to palpation. No joint edema. LOWER EXTREMITIES: Calves are equal size bilaterally and non-tender. No edema. No discoloration. NEURO: Normal sensorium. No sensory or motor deficits noted. SKIN: No rash or jaundice noted. 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 Ulcerative colitis (Chronic) Mild persistent asthma (Chronic) Lung nodule seen on imaging study (Chronic) Iron deficiency anemia (Chronic) GERD (gastroesophageal reflux disease) (Chronic) Anxiety (Chronic) Hyperlipidemia (Chronic) Hypertension (Chronic) Medical History (Updated 11/11/23 @ 07:31 by Serenity Conn MD) History of colon polyps History of squamous cell carcinoma 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 Denies recent imaging. Did see Dr. Smith and specialist at [facility] upon initial diagnosis. reports no further monitoring indicated. PRES (posterior reversible encephalopathy syndrome) (04/2020) Erythema nodosum Leukocytoclastic vasculitis History of esophageal dilatation Surgical History History of dilatation and curettage Status post Mohs surgery H/O removal of cyst Right breast S/P knee surgery Right knee S/P laparoscopic hysterectomy History of esophagogastroduodenoscopy (EGD) History of tonsillectomy History of colonoscopy Family History Unknown Cancer Father Esophageal cancer Transient ischemic attack Pulmonary embolism Brother Prostate cancer Mother Hypertension Family history of diabetes mellitus Sister Breast cancer FH: breast cancer in first degree relative Denies family history of Ovarian cancer Myocardial infarction Colorectal cancer Social History (Updated 11/09/23 @ 13:04 by DENISE Nichols) Smoking Status: Former smoker Tobacco Type: Cigarettes Age Started Using Tobacco: 17; Age Quit Using Tobacco: 33; Second Hand Exposure: No; Do You Dip or Chew Tobacco: No; Tobacco Cessation Education Requested by Patient: No Hx Alcohol Use: Yes Alcohol type: wine Alcohol Intake Frequency: Never Hx Substance Use: No Preferred Language: Frisian Communication Ability: Effective Visual Impairment: No Limitations Hearing Ability: Normal Electrical Mechanic Required: No Beliefs That Will Affect Care: None marital status: Current Living Situation: Spouse current occupational status: retired current occupation: used to work at the pain clinic Other Information That Helps Us Care for You: No Feels Safe at Home: Yes Childhood Exposure to Second-Hand Smoke: No Diet: regular caffeine: Yes during the past year weight has: remained stable Dental Care, Regularly: Yes Physical Activity Frequency: Does not Exercise Seatbelt Use: always Sunscreen Use: Yes Assistive Devices: Contacts and Glasses Allergies Allergies Allergy/AdvReac Type Severity Reaction Status Date / Time adalimumab [From Humira] Allergy Unknown RED PATCHES Verified 11/09/23 13:01 ciprofloxacin Allergy Unknown RASH Verified 11/09/23 13:01 codeine Allergy Unknown HEART Verified 11/09/23 13:01 PALPATATIONS infliximab Allergy Unknown RED Verified 11/09/23 13:01 BLOCHES ON CHEST nitrofurantoin Allergy Unknown VASCULITIS--TOLD Verified 11/09/23 13:01 [From Macrodantin] NOT TO TAKE AGAIN. adhesive AdvReac Unknown SORE RED Verified 11/09/23 13:01 SKIN lisinopril AdvReac Unknown Cough Verified 11/09/23 13:01 losartan AdvReac Unknown COUGH Verified 11/09/23 13:01 STITCHES Allergy Unknown REDNESS/PT Uncoded 11/09/23 13:01 DOES NOT KNOW TYPE OF STITCHES Home Meds Home Medications Medication Instructions Recorded Confirmed loratadine 10 mg tablet (Claritin) 10 mg PO DAILY PRN Congestion 08/07/18 11/11/23 aspirin 81 mg capsule 81 mg PO QPM 03/23/21 11/11/23 triamterene 37.5 0.5 tab PO QAM 07/25/23 11/11/23 mg-hydrochlorothiazide 25 mg tablet verapamil 120 mg 24 hr 120 mg PO HS 07/25/23 11/11/23 capsule,extended release mecobalamin (vitamin B12) 1,000 1,000 mcg PO DAILY 08/07/23 11/11/23 mcg lozenges alendronate 70 mg tablet 70 mg PO WK 11/11/23 11/11/23 alprazolam 0.25 mg tablet 0.25 - 0.5 mg PO DAILY PRN Anxiety 11/11/23 11/11/23 with flying cholecalciferol (vitamin D3) 25 25 mcg PO DAILY 11/11/23 11/11/23 mcg (1,000 unit) tablet (Vitamin D3) Previous Rx's Medication Instructions Recorded Breo Ellipta 100 mcg-25 mcg/dose 1 inh inhalation QAM #3 Inhalers 12/15/22 powder for inhalation (fluticasone furoate-vilanterol) mercaptopurine 50 mg tablet 75 mg (1.5 x 50 mg) PO HS #135 tabs 03/10/23 albuterol sulfate 90 mcg/actuation 1 - 2 puff inhalation Q4 PRN 03/16/23 aerosol inhaler (ProAir HFA) Shortness Of Breath Or Wheezing #18 grams carvedilol 12.5 mg tablet 12.5 mg PO BID #180 tabs 06/07/23 lansoprazole 30 mg capsule,delayed 30 mg PO QAM #90 caps 06/19/23 release vedolizumab 300 mg intravenous 300 mg IV Q8WK #1 ea 09/12/23 solution (Entyvio) azithromycin 250 mg tablet See Rx Instructions PO .COMPLEX #6 11/09/23 tabs Results & Data (ED) Vital Signs Vital Signs - 24 hr 11/11/23 04:22 11/11/23 04:33 11/11/23 04:40 Temperature 37.1 C Temperature Source Temporal Artery Scan Pulse Rate 98 H 88 Pulse Rate from SpO2 Sensor Respiratory Rate 18 Respiratory Effort / Characteristics Non-Labored Spontaneous Respiratory Depth Normal Respiratory Pattern Regular Blood Pressure 164/76 H Blood Pressure Mean 105 Blood Pressure Position Sitting Pulse Oximetry 94 Oxygen Delivery Method Room Air Room Air Sepsis Recent Fever Within 48 Hours No Sepsis New/Unexplained Change in Mental Status N/A Sepsis Action Taken by Nursing No Action Required 11/11/23 04:41 11/11/23 05:00 11/11/23 06:03 Temperature Temperature Source Pulse Rate 86 87 Pulse Rate from SpO2 Sensor 91 H Respiratory Rate 21 14 Respiratory Effort / Characteristics Respiratory Depth Respiratory Pattern Blood Pressure 164/88 H 146/80 H 149/66 H Blood Pressure Mean 94 102 93 Blood Pressure Position Pulse Oximetry 93 Oxygen Delivery Method Sepsis Recent Fever Within 48 Hours Sepsis New/Unexplained Change in Mental Status Sepsis Action Taken by Nursing Laboratory Data 11/11/23 04:40 11/11/23 04:40 Lab Results 11/11/23 11/11/23 Range/Units 04:40 05:33 WBC 10.70 (4.8-10.8) K/ul RBC 5.38 (4.20-5.40) M/uL Hgb 14.3 (12.0-16.0) g/dl Hct 44.0 (37.0-47.0) % MCV 81.8 (80.0-100.0) fL MCH 26.6 (25.0-34.0) pg MCHC 32.5 (32.0-36.0) g/dL RDW Std Deviation 53.5 H (36.4-46.3) fL RDW Coeff of Isiah 18.9 H (11.5-14.5) % Plt Count 587 H (130-400) K/uL MPV 9.5 (9.4-12.4) fL Immature Gran % (Auto) 0.5 % Neut % (Auto) 65.0 % Lymph % (Auto) 22.2 % Crockett % (Auto) 7.8 % Eos % (Auto) 3.3 % Baso % (Auto) 1.2 % Neut # (Auto) 6.96 H (1.40-6.50) K/uL Lymph # (Auto) 2.38 (1.20-3.40) K/uL Crockett # (Auto) 0.83 H (0.11-0.59) K/uL Eos # (Auto) 0.35 (0.00-0.50) K/uL Baso # (Auto) 0.13 (0.00-0.20) K/uL Immature Gran # (Auto) 0.05 (0.01-0.20) K/uL Sodium 132 L (136-145) mmol/L Potassium 3.9 (3.5-5.1) mmol/L Chloride 102 (98-107) mmol/L Carbon Dioxide 22 (21-32) mmol/L Anion Gap 8 (3-11) BUN 8 (6-23) mg/dl Creatinine 0.74 (0.6-1.2) mg/dl Est Cr Clr Drug Dosing 67.9 ml/min Est GFR ( Amer) 93.8 ml/min Est GFR (Non-Af Amer) 80.9 ml/min BUN/Creatinine Ratio 10.8 (10-20) Glucose 131 H (70-99(Fasting)) mg/dl Calcium 8.8 (8.6-10.3) mg/dl Magnesium 1.8 (1.7-2.4) mg/dl Total Bilirubin 0.8 (0.2-1.0) mg/dl AST 32 (13-39) U/L ALT 38 (7-52) U/L Alkaline Phosphatase 54 (34-104) U/L Troponin I High Sens 7.1 (0-14) pg/ml B-Natriuretic Peptide 479 H (0-100) pg/ml Total Protein 7.3 (6.0-8.3) gm/dl Albumin 3.8 (3.4-5.0) gm/dl Globulin 3.5 (2.5-4.0) gm/dl Albumin/Globulin Ratio 1.1 (0.9-2) Urine Color Yellow Urine Appearance Clear (Clear) Urine pH 6.0 (4.5-7.5) Ur Specific Eitzen 1.006 (1.000-1.030) Urine Protein 1+ H (Negative) Urine Glucose (UA) Negative (Negative) Urine Ketones Negative (Negative) Urine Blood 1+ H (Negative) Urine Nitrite Negative (Negative) Urine Bilirubin Negative (Negative) Urine Urobilinogen Negative (Negative) Ur Leukocyte Esterase Negative (Negative) Urine WBC (Auto) 0-5 (0-5) /hpf Urine RBC (Auto) 0-2 (0-2) /hpf U Hyaline Cast (Auto) 0-2 (0-2) /lpf U Epithel Cells (Auto) 0-2 (0-2) /hpf Urine Bacteria (Auto) None Seen (None Seen) Adenovirus (PCR) Not Detected (NotDetected) B. pertussis DNA (PCR) Not Detected (NotDetected) B.parapertussis DNA PCR Not Detected (NotDetected) C. pneumoniae DNA (PCR) Not Detected (NotDetected) Coronavirus OC43 (PCR) Not Detected (NotDetected) Coronavirus HKU1 (PCR) Not Detected (NotDetected) Coronavirus 229E (PCR) Not Detected (NotDetected) SARS-CoV-2 (PCR) Not Detected (NotDetected) Coronavirus NL63 (PCR) Not Detected (NotDetected) Human Metapneumovir PCR Not Detected (NotDetected) Influenza Type A (PCR) Not Detected (NotDetected) Influenza Type B (PCR) Not Detected (NotDetected) M. pneumoniae (PCR) Not Detected (NotDetected) Parainfluenza 1 (PCR) Not Detected (NotDetected) Parainfluenza 2 (PCR) Not Detected (NotDetected) Parainfluenza 3 (PCR) Not Detected (NotDetected) Parainfluenza 4 (PCR) Not Detected (NotDetected) RSV (PCR) Not Detected (NotDetected) Entero/Rhino (PCR) Not Detected (NotDetected) Administered Medications Albuterol (Albut/Ipratrop 3mg/0.5mg Neb 3 Ml Vial) 3 ml NEB QIDR [facility]; Protocol Stop: 12/11/23 14:09 Last Admin: 11/11/23 15:31 Dose: Not Given Documented By: Admin: 11/11/23 15:24 Dose: Not Given Documented By: JASPER Carvedilol (Carvedilol 12.5 Mg Tab) 12.5 mg PO BIDM [facility] Stop: 12/11/23 14:59 Last Admin: 11/11/23 15:53 Dose: 12.5 mg Documented By: PEMA Doxycycline Hyclate (Doxycycline Hyclate 100 Mg Cap) 100 mg PO BID [facility] Stop: 11/15/23 14:29 Last Admin: 11/11/23 15:42 Dose: 100 mg Documented By: PEMA Enoxaparin Sodium (Enoxaparin Inj 40 Mg/0.4 Ml Syr) 40 mg SQ Q24H [facility] Stop: 12/11/23 14:59 Last Admin: 11/11/23 15:41 Dose: Not Given Documented By: PEMA Fluticasone/Vilanterol (Fluticasone/Vilanterol 100/25mcg 14 Puffs/Inhaler) 1 puffs INH [facility] Stop: 12/11/23 14:29 Last Admin: 11/11/23 15:42 Dose: 1 puffs Documented By: PEMA Pantoprazole Sodium (Pantoprazole 40 Mg Tab) 40 mg PO [facility]; Protocol Stop: 12/11/23 14:29 Last Admin: 11/11/23 15:42 Dose: 40 mg Documented By: PEMA Prednisone (Prednisone 20 Mg Tab) 40 mg PO DAILY [facility] Stop: 12/11/23 14:29 Last Admin: 11/11/23 15:53 Dose: 40 mg Documented By: PEMA Discontinued Medications Acetaminophen (Acetaminophen 325 Mg Tab) 650 mg PO ONE ONE Stop: 11/11/23 13:53 Last Admin: 11/11/23 15:16 Dose: 650 mg Documented By: PEMA Albuterol (Albut/Ipratrop 3mg/0.5mg Neb 3 Ml Vial) 3 ml NEB NOW STA; Protocol Stop: 11/11/23 04:58 Last Admin: 11/11/23 05:04 Dose: 3 ml Documented By: HAI Albuterol (Albut/Ipratrop 3mg/0.5mg Neb 3 Ml Vial) 3 ml NEB NOW STA; Protocol Stop: 11/11/23 05:45 Last Admin: 11/11/23 05:52 Dose: 3 ml Documented By: HAI Albuterol (Albut/Ipratrop 3mg/0.5mg Neb 3 Ml Vial) 3 ml NEB NOW STA; Protocol Stop: 11/11/23 07:00 Last Admin: 11/11/23 07:07 Dose: 3 ml Documented By: CLIF Albuterol (Albut/Ipratrop 3mg/0.5mg Neb 3 Ml Vial) Confirm Administered Dose 3 ml .ROUTE .STK-MED ONE Stop: 11/11/23 13:55 Last Admin: 11/11/23 13:55 Dose: 3 ml Documented By: CLIF Dexamethasone Sodium Phosphate (DexamethasonePf 10 Mg/Ml Vial) 6 mg IV NOW ONE Stop: 11/11/23 04:58 Last Admin: 11/11/23 05:04 Dose: 6 mg Documented By: HAI Magnesium Sulfate/Dextrose (Magnesium Sulfate / D5w) 1 gm in 100 mls @ 50 mls/hr IV Q2H [facility] Stop: 11/11/23 13:29 Last Infusion: 11/11/23 15:54 Dose: Infused Documented By: Admin: 11/11/23 13:24 Dose: 50 mls/hr Documented By: Infusion: 11/11/23 13:20 Dose: Infused Documented By: Admin: 11/11/23 11:20 Dose: 50 mls/hr Documented By: ESHA Ioversol (Optiray 320 125ml) 119 ml IV ONCE ONE Stop: 11/11/23 07:59 Last Admin: 11/11/23 07:58 Dose: 119 ml Documented By: LANE Imaging Data Radiologist's Impression: Chest X-Ray 11/11/23 04:35 XR chest 1V portable HISTORY: 73 years-old Female Dyspnea acute shortness of breath COMPARISON: Chest CT 11/11/2022 TECHNIQUE: AP view of the chest FINDINGS: Cardiomediastinal and hilar silhouettes are within normal limits. No pneumothorax, pleural effusion, airspace consolidation or pulmonary edema. Degenerative changes of the shoulders and spine. Mild sigmoidal thoracolumbar scoliosis. IMPRESSION: No acute process. ACT 112: Negative or not required by law. The above report was generated using voice recognition software. It may contain grammatical, syntax or spelling errors. Electronically signed by: Rodrigue Lazaro M.D. 11/11/2023 8:05 AM Chest CTA 11/11/23 06:59 CT angio chest PE protocol CT DOSE: 804.88 mGy.cm HISTORY: 73 years-old Female with PE? SOB, travel. Acute shortness of breath TECHNIQUE: Multiple CTA images of the chest were obtained after the intravenous administration of Optiray. Coronal and sagittal MIPS were obtained from the axial data set and were submitted for review. All measurements were obtained according to NASCET criteria. A dose lowering technique was utilized adhering to the principles of ALARA. COMPARISON: Chest radiograph the same day, chest CT 11/11/2022, CTA of the chest 08/07/2018 FINDINGS: CTA: Heart is normal in size. No pericardial effusion. No thoracic aortic aneurysm. Mild atherosclerosis. Study is respiratory motion degraded CT evaluation of the segmental and subsegmental branches. No pulmonary emboli identified. CT CHEST: Subset of meter hypodensities thyroid nodules. Borderline enlarged mediastinal and hilar lymph nodes measure up to 10 mm which have increased in size from prior. Small right and trace left pleural effusions. No pneumothorax. Emphysema with bronchial wall thickening. Mild subsegmental bibasilar groundglass densities. No suspicious pulmonary nodules or masses identified. The central airways are generally patent. Stable 7 mm solid nodule within the posterior basal segment right lower lobe on image 43 series 4. No acute upper abdominal abnormality. Hepatic steatosis. Unremarkable soft tissues. No acute fracture. IMPRESSION: 1. No pulmonary emboli identified. 2. Emphysema with bronchitis and mild subsegmental bibasilar densities favoring atelectasis. 3. Small right and trace left pleural effusions. 4. Stable likely benign 7 mm solid nodule of the right lower lobe, unchanged from 08/07/2018. 5. Mild nonspecific mediastinal and hilar lymphadenopathy, likely reactive. ACT 112: Negative or not required by law. The above report was generated using voice recognition software. It may contain grammatical, syntax or spelling errors. Electronically signed by: Rodrigue Lazaro M.D. 11/11/2023 8:12 AM Discharge Plan Visit Data Chief Complaint: Shortness of Breath/Dyspnea ED Provider: Surinder Wagoner Discharge Problem: Wheezing, SOB (shortness of breath) Patient Disposition: Admitted As Inpatient Discharge Instructions Interventions: ED Discharge Assessment Last Done: 11/11/23 14:11
--- NOTE | 2023-11-11 07:24 | Electrocardiogram Report ---
Test Reason : Blood Pressure : / mmHG Vent. Rate : 085 BPM Atrial Rate : 085 BPM P-R Int : 158 ms QRS Dur : 110 ms QT Int : 392 ms P-R-T Axes : 053 040 032 degrees QTc Int : 466 ms Sinus rhythm with frequent Premature ventricular complexes Otherwise normal ECG When compared with ECG of 02-JUL-2020 00:24, Premature ventricular complexes are now Present Confirmed by Frankie Bynum ([id number]) on 11/11/2023 7:24:02 AM Referred By: REFERRED SELF Confirmed By:Ishmael Bynum
--- NOTE | 2023-11-11 07:42 | History & Physical Report ---
Date of Service November 11, 2023 Assessment & Plan (1) Acute asthma exacerbation: Plan: 73 y/o with history of asthma presented with several days of worsening shortness of breath, cough and wheezing. Treated with z-pack by PCP without improvement. Given decadron and nebs x 2 in ED without improvement. Resp biofire negative. Labs unremarkable except for BNP in 470s. No history of heart failure, no peripheral edema, no pulmonary edema on CXR which is clear. Cardiac monitoring in ED and EKG notable for frequent PVCs which appears to be new. Last echo was in 2020 with normal EF and valves, no pulmonary hypertension. Differential diagnosis includes acute exacerbation of asthma, pulmonary embolism (recent travel to [place]), new onset of heart failure. CTA ordered by ED - CTA chest done in the ED was negative for pulmonary embolism or pulmonary consolidations, some emphysema and bronchitis was present -admit to med tele because of increased PVCs -continue steroids, bronchodilators for asthma exacerbation. Avoid azithromycin because of frequent PVCs, would not want to lengthen the QT, will use oral doxycycline - on reassessment now seems to be improving, exam not consistent with heart failure though BNP is elevated at 480, if not having a better night tonight and remains dyspneic in the morning consider trial of IV diuretic PVCs - resume carvedilol 12.5 mg po bid. check magnesium level - low normal at 1.8 so will replace with 2 g IV which also might help her asthma symptoms as well as the PVCs - this might reflect increased irritability related to treatment with a lot of albuterol - troponin is negative - monitor on telemetry (2) Ulcerative colitis: Plan: continue mercaptopurine, also on vedolizumab q8 weeks (Entyvio) well-controlled (3) Mild persistent asthma: Plan: as above Home meds Breo ellipta Plan Mild hyponatremia - related to triamterene hydrochlorothiazide and or mild asthma exacerbation, asymptomatic, monitor Thrombocytosis - chronic, has been evaluated by hematology and thought to be reactive Elevated glucose of 131 but received IV steroids overnight Hypertension, history of SVT - carvedilol 12.5 mg po bid. verapamil. TMT-HCTZ DVT prophylaxisenoxaparin anticipate she will be able to return home tomorrow History of Present Illness Chief Complaint: shortness of breath and wheezing Primary Care Provider: Mar Whitaker MD 73 y/o with hx asthma and ulcerative colitis who came to ED with 2-3 days of worsening shortness of breath cough and wheezing. she was recently in [place] and a friend they were staying with had sinusitis and was coughing a lot. her had some brief viral symptoms Treated with z-pack by PCP and took 10 mg prednisone before coming in. Cough, can't lie flat. last night and the night before could not lie down comfortably felt like she could not breathe but that resolved instantly after sitting up. No peripheral edema. No pleuritic pain. Had traveled to [place]. Biofire neg, CXR neg, trop neg, BNP 500 - Echo 2020 had normal EF, valves okay EKG - frequent PVCs which are new. on monitor every 3rd or 4th beat decadron, nebs x 2 did not feel better After initial treatment in the ED so expanded differential diagnosis considered including occult pneumonia, pulmonary embolism, new onset of heart failure CTA chest done in the ED was negative for pulmonary embolism or pulmonary consolidations, some emphysema and bronchitis was present by the time I saw her midmorning she actually was feeling much better no longer wheezing and not short of breath though still coughing a lot, the cough is nonproductive Allergies Allergy/AdvReac Type Severity Reaction Status Date / Time adalimumab [From Humira] Allergy Unknown RED PATCHES Verified 11/09/23 13:01 ciprofloxacin Allergy Unknown RASH Verified 11/09/23 13:01 codeine Allergy Unknown HEART Verified 11/09/23 13:01 PALPATATIONS infliximab Allergy Unknown RED Verified 11/09/23 13:01 BLOCHES ON CHEST nitrofurantoin Allergy Unknown VASCULITIS--TOLD Verified 11/09/23 13:01 [From Macrodantin] NOT TO TAKE AGAIN. adhesive AdvReac Unknown SORE RED Verified 11/09/23 13:01 SKIN lisinopril AdvReac Unknown Cough Verified 11/09/23 13:01 losartan AdvReac Unknown COUGH Verified 11/09/23 13:01 STITCHES Allergy Unknown REDNESS/PT Uncoded 11/09/23 13:01 DOES NOT KNOW TYPE OF STITCHES Home Medications Medication Instructions Recorded Confirmed Type loratadine 10 mg tablet (Claritin) 10 mg PO DAILY PRN Congestion 08/07/18 11/11/23 History aspirin 81 mg capsule 81 mg PO QPM 03/23/21 11/11/23 History Breo Ellipta 100 mcg-25 mcg/dose 1 inh inhalation QAM #3 Inhalers 12/15/22 11/11/23 Rx powder for inhalation (fluticasone furoate-vilanterol) mercaptopurine 50 mg tablet 75 mg (1.5 x 50 mg) PO HS #135 tabs 03/10/23 11/11/23 Rx albuterol sulfate 90 mcg/actuation 1 - 2 puff inhalation Q4 PRN 03/16/23 11/11/23 Rx aerosol inhaler (ProAir HFA) Shortness Of Breath Or Wheezing #18 grams carvedilol 12.5 mg tablet 12.5 mg PO BID #180 tabs 06/07/23 11/11/23 Rx lansoprazole 30 mg capsule,delayed 30 mg PO QAM #90 caps 06/19/23 11/11/23 Rx release triamterene 37.5 0.5 tab PO QAM 07/25/23 11/11/23 History mg-hydrochlorothiazide 25 mg tablet verapamil 120 mg 24 hr 120 mg PO HS 07/25/23 11/11/23 History capsule,extended release mecobalamin (vitamin B12) 1,000 1,000 mcg PO DAILY 08/07/23 11/11/23 History mcg lozenges vedolizumab 300 mg intravenous 300 mg IV Q8WK #1 ea 09/12/23 11/11/23 Rx solution (Entyvio) azithromycin 250 mg tablet See Rx Instructions PO .COMPLEX #6 11/09/23 11/11/23 Rx tabs alendronate 70 mg tablet 70 mg PO WK 11/11/23 11/11/23 History alprazolam 0.25 mg tablet 0.25 - 0.5 mg PO DAILY PRN Anxiety 11/11/23 11/11/23 History with flying cholecalciferol (vitamin D3) 25 25 mcg PO DAILY 11/11/23 11/11/23 History mcg (1,000 unit) tablet (Vitamin D3) Past Med/Surg History Problem List Acute asthma exacerbation SOB (shortness of breath) (Acute) Wheezing (Acute) Prediabetes (Chronic) Recurrent UTI (Chronic) Cervicogenic headache (Chronic) Myofascial pain (Chronic) Right knee DJD (Chronic) Vitamin D deficiency (Chronic) Esophageal dysphagia (Chronic) Osteoporosis (Chronic) Paroxysmal supraventricular tachycardia (Chronic) 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 Ulcerative colitis (Chronic) Mild persistent asthma (Chronic) Lung nodule seen on imaging study (Chronic) Iron deficiency anemia (Chronic) GERD (gastroesophageal reflux disease) (Chronic) Anxiety (Chronic) Hyperlipidemia (Chronic) Hypertension (Chronic) Medical History History of colon polyps History of squamous cell carcinoma 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 Denies recent imaging. Did see Dr. Smith and specialist at [facility] upon initial diagnosis. reports no further monitoring indicated. PRES (posterior reversible encephalopathy syndrome) (04/2020) Erythema nodosum Leukocytoclastic vasculitis History of esophageal dilatation Surgical History History of dilatation and curettage Status post Mohs surgery H/O removal of cyst Right breast S/P knee surgery Right knee S/P laparoscopic hysterectomy History of esophagogastroduodenoscopy (EGD) History of tonsillectomy History of colonoscopy Family History Unknown Cancer Father Esophageal cancer Transient ischemic attack Pulmonary embolism Brother Prostate cancer Mother Hypertension Family history of diabetes mellitus Sister Breast cancer FH: breast cancer in first degree relative Denies family history of Ovarian cancer Myocardial infarction Colorectal cancer Social History Smoking Status: Former smoker Tobacco Type: Cigarettes Age Started Using Tobacco: 17; Age Quit Using Tobacco: 33; Second Hand Exposure: No; Do You Dip or Chew Tobacco: No; Tobacco Cessation Education Requested by Patient: No Hx Alcohol Use: Yes Alcohol type: wine Alcohol Intake Frequency: Never Hx Substance Use: No Preferred Language: Maltese Communication Ability: Effective Visual Impairment: No Limitations Hearing Ability: Normal Cloth Opener Hand Required: No Beliefs That Will Affect Care: None marital status: Current Living Situation: Spouse current occupational status: retired current occupation: used to work at the pain clinic Other Information That Helps Us Care for You: No Feels Safe at Home: Yes Childhood Exposure to Second-Hand Smoke: No Diet: regular caffeine: Yes during the past year weight has: remained stable Dental Care, Regularly: Yes Physical Activity Frequency: Does not Exercise Seatbelt Use: always Sunscreen Use: Yes Assistive Devices: Contacts and Glasses Review of Systems 2 Review of Systems: All systems reviewed & are unremarkable except as noted in HPI & below Physical Exam 2 Physical Exam: PHYSICAL EXAMINATION Last 24h vital signs reviewed, see documentation in flowsheet General: comfortable appearing, no distress HEENT: Normocephalic, atraumatic, pupils round and equal, sclerae anicteric, no conjunctival injection, moist mucus membranes Lungs: Normal respiratory effort. Clear to auscultation bilaterally. No RRW. frequent nonproductive cough that is a little congested sounding Heart: Regular rate and rhythm, no murmurs. No JVD Abdomen: Soft, nontender, nondistended. Bowel sounds present. Extremities: Warm, dry, well-perfused. No extremity edema. Neuro: Alert and oriented x 4, face symmetric, moves 4 extremities well Psych: Normal affect and behavior Results & Data Results & Data Vital Signs (Past 12 Hours) Vital Signs Temp Pulse Resp BP Pulse Ox O2 Del Method 11/11/23 06:03 87 14 149/66 H 11/11/23 05:00 86 21 146/80 H 93 11/11/23 04:41 164/88 H 11/11/23 04:40 Room Air 11/11/23 04:33 88 11/11/23 04:22 37.1 C 98 H 18 164/76 H 94 Room Air Laboratory Results 11/11/23 04:40 11/11/23 04:40 Diagnostic Findings CXR - personally reviewed film which is clear except possible increased bronchial markings R base ECG Additional Comments: personally reviewed tracing - sinus rhythm with frequent PVCs no ischemic changes PG Care Time/CCT Total # of Minutes Spent Total Time Spent with Patient: Total time spent is greater than 50% in coordination of care (as documented) at patient's floor/unit and/or counseling patient: Coding Level of Care Code 91201 INT INP/OBS CARE 2/55MIN Diagnoses Acute asthma exacerbation J45.901 Ulcerative pancolitis without complication K51.00 Digestive disease complication type: without complication Ulcerative colitis location: ulcerative pancolitis Mild persistent asthma J45.30 (2) Ulcerative colitis Digestive disease complication type: without complication Ulcerative colitis location: ulcerative pancolitis Qualified Code(s): K51.00 - Ulcerative (chronic) pancolitis without complications
[2023-11-11] MEDS: OPTIRAY 320 125ml IV ONE (07:58)
--- NOTE | 2023-11-11 08:07 | XRay Report ---
XR chest 1V portable HISTORY: 73 years-old Female Dyspnea acute shortness of breath COMPARISON: Chest CT 11/11/2022 TECHNIQUE: AP view of the chest FINDINGS: Cardiomediastinal and hilar silhouettes are within normal limits. No pneumothorax, pleural effusion, airspace consolidation or pulmonary edema. Degenerative changes of the shoulders and spine. Mild sigm oidal thoracolumbar scoliosis. IMPRESSION: No acute process. ACT 112: Negative or not required by law. The above report was generated using voice recognition software. It may contain grammatical, syntax o r spelling errors. Electronically signed by: Rodrigue Lazaro M.D. 11/11/2023 8:05 AM
--- NOTE | 2023-11-11 08:15 | CT Scan Report ---
CT angio chest PE protocol CT DOSE: 804.88 mGy.cm HISTORY: 73 years-old Female with PE? SOB, travel. Acute shortness of breath TECHNIQUE: Multiple CTA images of the chest were obtained after the intravenous administration of Opt iray. Coronal and sagittal MIPS were obtained from the axial data set and were submitted for review. All measurements were obtained according to NASCET criteria. A dose lowering technique was utilized adhering to the principles of ALARA. COMPARISON: Chest radiograph the same day, chest CT 11/11/2022, CTA of the chest 08/07/2018 FINDINGS: CTA: Heart is normal in size. No pericardial effusion. No thoracic aortic aneurysm. Mild atherosclerosis. Study is respiratory motion degraded CT evaluation of the segmental and subsegmental branches. No pul monary emboli identified. CT CHEST: Subset of meter hypodensities thyroid nodules. Borderline enlarged mediastinal and hilar lymph nodes measure up to 10 mm which have increased in size from prior. Small right and trace left pleural effus ions. No pneumothorax. Emphysema with bronchial wall thickening. Mild subsegmental bibasilar groundgl ass densities. No suspicious pulmonary nodules or masses identified. The central airways are generall y patent. Stable 7 mm solid nodule within the posterior basal segment right lower lobe on image 43 se robert 4. No acute upper abdominal abnormality. Hepatic steatosis. Unremarkable soft tissues. No acute fracture . IMPRESSION: 1. No pulmonary emboli identified. 2. Emphysema with bronchitis and mild subsegmental bibasilar densities favoring atelectasis. 3. Small right and trace left pleural effusions. 4. Stable likely benign 7 mm solid nodule of the right lower lobe, unchanged from 08/07/2018. 5. Mild nonspecific mediastinal and hilar lymphadenopathy, likely reactive. ACT 112: Negative or not required by law. The above report was generated using voice recognition software. It may contain grammatical, syntax o r spelling errors. Electronically signed by: Rodrigue Lazaro M.D. 11/11/2023 8:12 AM
[2023-11-11 08:27] LABS: Magnesium 1.8 mg/dl (1.7-2.4)
[2023-11-11] MEDS: MAGNESIUM SULFATE / D5W 1 GM/100 ML BAG IV SCH (11:20)
[2023-11-11] MEDS: ALBUT/IPRATROP 3MG/0.5MG NEB 3 ML VIAL ONE (13:55)
[2023-11-11] MEDS ORDERED: ALBUTEROL 0.083% NEBU SOLN 3 ML VIAL NEB PRN (14:10)
[2023-11-11] MEDS ORDERED: ALBUTEROL HFA 8 GM INHALER INH PRN (14:10)
[2023-11-11] MEDS ORDERED: ALUMINUM/MAGNESIUM SUSP 30 ML UDC PO PRN (14:10)
[2023-11-11] MEDS ORDERED: POLYETHYLENE (MIRALAX) 17 GM PACK PO PRN (14:10)
[2023-11-11] MEDS ORDERED: ACETAMINOPHEN 325 MG TAB PO PRN (14:10)
[2023-11-11] MEDS ORDERED: MELATONIN 3 MG TAB PO PRN (14:10)
[2023-11-11] MEDS ORDERED: ONDANSETRON INJ 2 MG/ML 2 ML VIAL IV PRN (14:10)
[2023-11-11] MEDS ORDERED: MAGNESIUM HYDROXIDE SUSP 30 ML UDC PO PRN (14:10)
[2023-11-11] MEDS: ACETAMINOPHEN 325 MG TAB PO ONE (15:16)
[2023-11-11] MEDS: ALBUT/IPRATROP 3MG/0.5MG NEB 3 ML VIAL NEB SCH (15:24)
[2023-11-11] MEDS: ENOXAPARIN INJ 40 MG/0.4 ML SYR SQ SCH (15:41)
[2023-11-11] MEDS: FLUTICASONE/VILANTEROL 100/25MCG 14 PUFFS/INHALER INH SCH (15:42)
[2023-11-11] MEDS: PANTOprazole 40 MG TAB PO SCH (15:42)
[2023-11-11] MEDS: DOXYCYCLINE HYCLATE 100 MG CAP PO SCH (15:42)
[2023-11-11] MEDS: carvediloL 12.5 MG TAB PO SCH (15:53)
[2023-11-11] MEDS: predniSONE 20 MG TAB PO SCH (15:53)
[2023-11-11] MEDS: VERAPAMIL HCL 120 MG TABCR PO SCH (20:05)
[2023-11-11] MEDS: guaiFENesin 600 MG TABCR PO SCH (20:06)
[2023-11-11] MEDS: ASPIRIN 81 MG ECTAB PO SCH (20:06)
[2023-11-12] MEDS: ALPRAZolam 0.25 MG TABLET PO ONE (00:48)
[2023-11-12] MEDS: TRIAMTERENE/HCTZ 37.5/25MG TAB PO SCH (08:12)
--- NOTE | 2023-11-12 16:33 | Discharge Summary ---
Date of Service November 12, 2023 Admission HPI Per Admitting Provider 73 y/o with hx asthma and ulcerative colitis who came to ED with 2-3 days of worsening shortness of breath cough and wheezing. she was recently in [place] and a friend they were staying with had sinusitis and was coughing a lot. her had some brief viral symptoms Treated with z-pack by PCP and took 10 mg prednisone before coming in. Cough, can't lie flat. last night and the night before could not lie down comfortably felt like she could not breathe but that resolved instantly after sitting up. No peripheral edema. No pleuritic pain. Had traveled to [place]. Biofire neg, CXR neg, trop neg, BNP 500 - Echo 2020 had normal EF, valves okay EKG - frequent PVCs which are new. on monitor every 3rd or 4th beat decadron, nebs x 2 did not feel better After initial treatment in the ED so expanded differential diagnosis considered including occult pneumonia, pulmonary embolism, new onset of heart failure CTA chest done in the ED was negative for pulmonary embolism or pulmonary consolidations, some emphysema and bronchitis was present by the time I saw her midmorning she actually was feeling much better no longer wheezing and not short of breath though still coughing a lot, the cough is nonproductive Principal Diagnosis Acute exacerbation of asthma, acute bronchitis Discharge Exam AOx4 sitting in bed No cervical LAD, no submandibular or neck masses, no stridor. Hoarse voice Normal resp effort, CTAB without wheezing, good air movement, occasional coughing Heart reg no mrg no JVD ABD nondistended LE wwp without edema No rashes, skin w/d Discharge Data Allergies Allergy/AdvReac Type Severity Reaction Status Date / Time adalimumab [From Humira] Allergy Unknown RED PATCHES Verified 11/09/23 13:01 ciprofloxacin Allergy Unknown RASH Verified 11/09/23 13:01 codeine Allergy Unknown HEART Verified 11/09/23 13:01 PALPATATIONS infliximab Allergy Unknown RED Verified 11/09/23 13:01 BLOCHES ON CHEST nitrofurantoin Allergy Unknown VASCULITIS--TOLD Verified 11/09/23 13:01 [From Macrodantin] NOT TO TAKE AGAIN. adhesive AdvReac Unknown SORE RED Verified 11/09/23 13:01 SKIN lisinopril AdvReac Unknown Cough Verified 11/09/23 13:01 losartan AdvReac Unknown COUGH Verified 11/09/23 13:01 STITCHES Allergy Unknown REDNESS/PT Uncoded 11/09/23 13:01 DOES NOT KNOW TYPE OF STITCHES Ordered Studies Chest X-Ray 11/11/23 04:35 XR chest 1V portable HISTORY: 73 years-old Female Dyspnea acute shortness of breath COMPARISON: Chest CT 11/11/2022 TECHNIQUE: AP view of the chest FINDINGS: Cardiomediastinal and hilar silhouettes are within normal limits. No pneumothorax, pleural effusion, airspace consolidation or pulmonary edema. Degenerative changes of the shoulders and spine. Mild sigmoidal thoracolumbar scoliosis. IMPRESSION: No acute process. ACT 112: Negative or not required by law. The above report was generated using voice recognition software. It may contain grammatical, syntax or spelling errors. Electronically signed by: Rodrigue Lazaro M.D. 11/11/2023 8:05 AM Chest CTA 11/11/23 06:59 CT angio chest PE protocol CT DOSE: 804.88 mGy.cm HISTORY: 73 years-old Female with PE? SOB, travel. Acute shortness of breath TECHNIQUE: Multiple CTA images of the chest were obtained after the intravenous administration of Optiray. Coronal and sagittal MIPS were obtained from the axial data set and were submitted for review. All measurements were obtained according to NASCET criteria. A dose lowering technique was utilized adhering to the principles of ALARA. COMPARISON: Chest radiograph the same day, chest CT 11/11/2022, CTA of the chest 08/07/2018 FINDINGS: CTA: Heart is normal in size. No pericardial effusion. No thoracic aortic aneurysm. Mild atherosclerosis. Study is respiratory motion degraded CT evaluation of the segmental and subsegmental branches. No pulmonary emboli identified. CT CHEST: Subset of meter hypodensities thyroid nodules. Borderline enlarged mediastinal and hilar lymph nodes measure up to 10 mm which have increased in size from prior. Small right and trace left pleural effusions. No pneumothorax. Emphysema with bronchial wall thickening. Mild subsegmental bibasilar groundglass densities. No suspicious pulmonary nodules or masses identified. The central airways are generally patent. Stable 7 mm solid nodule within the posterior basal segment right lower lobe on image 43 series 4. No acute upper abdominal abnormality. Hepatic steatosis. Unremarkable soft tissues. No acute fracture. IMPRESSION: 1. No pulmonary emboli identified. 2. Emphysema with bronchitis and mild subsegmental bibasilar densities favoring atelectasis. 3. Small right and trace left pleural effusions. 4. Stable likely benign 7 mm solid nodule of the right lower lobe, unchanged from 08/07/2018. 5. Mild nonspecific mediastinal and hilar lymphadenopathy, likely reactive. ACT 112: Negative or not required by law. The above report was generated using voice recognition software. It may contain grammatical, syntax or spelling errors. Electronically signed by: Rodrigue Lazaro M.D. 11/11/2023 8:12 AM 11/11/23 06:59 CT angio chest PE protocol Stat Hospital Course (1) Acute asthma exacerbation: 73 y/o with history of asthma presented with several days of worsening shortness of breath, cough and wheezing. Treated with z-pack by PCP without improvement. Given decadron and nebs x 2 in ED without initial improvement. Resp biofire negative. Labs unremarkable except for BNP in 470s. No history of heart failure, no peripheral edema, no pulmonary edema on CXR which is clear. Cardiac monitoring in ED and EKG notable for frequent PVCs. Last echo was in 2020 with normal EF and valves, no pulmonary hypertension. Differential diagnosis included acute exacerbation of asthma, pulmonary embolism (recent travel to [place]), new onset of heart failure. CTA ordered by ED - CTA chest done in the ED was negative for pulmonary embolism or pulmonary consolidations, some emphysema and bronchitis was present BNP elevated but exam and clinical course not consistent with heart failure. Wheezing and dyspnea resolved without diuresis. -sounds like started with a viral syndrome -treated with steroids, bronchodilators for asthma exacerbation. Avoid azithromycin because of frequent PVCs, would not want to lengthen the QT, replaced with oral doxycycline -improved, has some coughing and laryngitis symptoms but dyspnea and wheezing resolved. Further evaluation of neck/vocal cords if hoarse voice and globus sensation not improved in a few weeks PVCs - was having frequent PVCs in ED and early admission. resumed carvedilol 12.5 mg po bid. magnesium level - low normal at 1.8 replaced with 2 g IV - probably increased irritability related to treatment with a lot of albuterol, dyspnea, coughing, missed carvedilol dose - troponin is negative -much fewer PVCs on tele review last 24h (2) Ulcerative colitis: continue mercaptopurine, also on vedolizumab q8 weeks (Entyvio) well-controlled (3) Mild persistent asthma: as above Home meds Breo ellipta Plan Mild hyponatremia - related to triamterene hydrochlorothiazide and or mild asthma exacerbation, asymptomatic, monitor Thrombocytosis - chronic, has been evaluated by hematology and thought to be reactive Elevated glucose of 131 but received IV steroids Hypertension, history of SVT - carvedilol 12.5 mg po bid. verapamil. TMT-HCTZ Total Time Total Time Spent Total Time Spent (In Minutes): <30 minutes Discharge Plan Discharge Items Patient Disposition: Home - Self-Care Reason For Visit: asthma exacerbation Discharge Diagnosis: asthma exacerbation Activity: Resume your previous activity Non-emergency contact: Primary Care Provider Call non-emergency contact if: you have any medication questions, your symptoms worsen and you have a fever Follow-up/Referrals: Mar Whitaker MD [Primary Care Provider] - 11/22/23 2:00 pm Diet: Regular Addtl Attending Provider Instructions: You were treated for asthma exacerbation Continue your usual inhalers Take prednisone and doxycycline for five days as directed You can use mucinex, dextromethorphan (robitussin or delsym), and tessalon as n eeded for congestion and cough I think you have some laryngitis from a resolving viral infection or from frequent coughing You were having frequent premature heartbeats (PVCs) in the ED, but this calmed down and now they are occasional. I think this was just cardiac irritability from respiratory distress, lots of albuterol. Magnesium replacement helped (you had low normal magnesium level) - I replaced the azithromycin with doxycycline, because azithromycin can promote heart arrhythmias -if you want to try a magnesium supplement I would recommend the "slo-mag" or extended release magnesium, starting with 1 tab daily -magnesium oxide formulations are likely to cause diarrhea, especially with your ulcerative colitis It was a pleasure taking care of you in the hospital, Serenity Conn MD Pending Studies at Discharge: No Stand-Alone Forms: My [facility] [employer], Smoking Cessation Medications and DC Order Prescriptions: New doxycycline hyclate 100 mg Capsule 100 mg PO BID Qty: 10 0RF prednisone 20 mg tablet See Rx Instructions .ROUTE .COMPLEX Qty: 7 0RF Rx Instructions: 2 tabs in the AM for two days starting 11/12, then 1 tab in the AM for three days Continued fluticasone furoate-vilanterol [Breo Ellipta] 100-25 mcg/dose blister with device 1 inh inhalation QAM Qty: 3 3RF Rx Instructions: Brand Breo required by insurance mercaptopurine 50 mg tablet 75 mg PO HS Qty: 135 1RF albuterol sulfate [ProAir HFA] 90 mcg/actuation HFA aerosol inhaler 1 - 2 puff INHALATION Q4 PRN (Reason: Shortness Of Breath Or Wheezing) Qty: 18 5RF carvedilol 12.5 mg tablet 12.5 mg PO BID Qty: 180 3RF Rx Instructions: must administer with a meal/food lansoprazole 30 mg capsule,delayed release(DR/EC) 30 mg PO QAM Qty: 90 3RF Rx Instructions: TAKE 1 CAPSULE EVERY MORNING Entyvio 300 mg recon soln 300 mg IV Q8WK Qty: 1 8RF Rx Instructions: INFUSE 300 MG INTRAVENOUSLY EVERY 8 WEEKS mecobalamin (vitamin B12) 1,000 mcg lozenge 1,000 mcg PO DAILY Rx Instructions: allow to dissolve in mouth OR may chew lightly before swallowing aspirin 81 mg capsule 81 mg PO QPM loratadine [Claritin] 10 mg Tablet 10 mg PO DAILY PRN (Reason: Congestion) triamterene-hydrochlorothiazid 37.5-25 mg tablet 0.5 tab PO QAM verapamil 120 mg capsule,ext rel. pellets 24 hr 120 mg PO HS cholecalciferol (vitamin D3) [Vitamin D3] 25 mcg (1,000 unit) Tablet 25 mcg PO DAILY alendronate 70 mg tablet 70 mg PO WK Rx Instructions: TAKE 1 TABLET EVERY 7 DAYS. TAKE MEDICATION ON AN EMPTY STOMACH AND THEN SIT UPRIGHT FOR 30 MINUTES. MONDAY alprazolam 0.25 mg tablet 0.25 - 0.5 mg PO DAILY MDD 0.75mg/24hrs PRN (Reason: Anxiety with flying) Rx Instructions: orally 1-2 PO q8h PRN (no more than 3 tablets in 24 hours); Discontinued azithromycin 250 mg tablet See Rx Instructions PO .COMPLEX Qty: 6 0RF Rx Instructions: Start Date 11/09/23 x4 day supply, take 500 mg today (day 1), then 250 mg for 4 days (days 2-5) PO; - Discharge Orders: Discharge Order (Routine); Ordered 11/12/23 Ordered By: Serenity Conn Admission Data Admit Date/Time: 11/11/23 09:34 Attending Provider: Serenity Conn Admit Provider: Serenity Conn Primary Care Provider: Mar Whitaker Other Interventions: Discharge Summary Assessment (RN) Last Done: 11/12/23 15:17 Coding Level of Care Code 49977 IN/OBS DISCH 30 MIN/LESS Diagnoses Acute asthma exacerbation J45.901 Ulcerative pancolitis without complication K51.00 Ulcerative colitis location: ulcerative pancolitis Digestive disease complication type: without complication Mild persistent asthma J45.30
== END 2023-11-12 15:47 | disposition home or self-care (01) ==
LOC: EDINP 04:11 → ED 04:11 → 2N 14:11

== ENCOUNTER 2023-11-17 16:58 | Inpatient (IN) ==
[2023-11-17 17:49] LABS: Basophils # (auto) 0.06 K/uL (0.00-0.20); Basophils % (auto) 0.5 %; Eosinophils # (auto) 0.05 K/uL (0.00-0.50); Eosinophils % (auto) 0.4 %; Hematocrit (blood only) 46.1 % (37.0-47.0); Hemoglobin 15.2 g/dl (12.0-16.0); Immature Granulocytes # (auto) 0.07 K/uL (0.01-0.20); Immature Granulocytes % (auto) 0.6 %; Lymphocytes # (auto) 1.09 K/uL (1.20-3.40); Lymphocytes % (auto) 9.3 %; Mean Corpuscular Hemoglobin 26.3 pg (25.0-34.0); Mean Corpuscular Volume 79.9 fL (80.0-100.0); Monocytes # (auto) 0.18 K/uL (0.11-0.59); Monocytes % (auto) 1.5 %; Neutrophils # (auto) 10.23 K/uL (1.40-6.50); Neutrophils % (auto) 87.7 %; Platelet Count 766 K/uL (130-400); RDW Coefficient of Variation 20.3 % (11.5-14.5); RDW Standard Deviation 54.4 fL (36.4-46.3); Red Blood Count 5.77 M/uL (4.20-5.40); White Blood Count 11.68 K/ul (4.8-10.8)
--- NOTE | 2023-11-17 17:56 | XRay Report ---
XR chest 1V not portable CLINICAL HISTORY: Chest pain, nonspecific TECHNIQUE: Single frontal radiograph of the chest was obtained. Comparison: Comparison is made to chest radiograph 11/11/2023 FINDINGS: No lines and tubes are seen. The cardiomediastinal silhouette is normal. The lungs are clear. No evid ence of pleural effusion or pneumothorax. IMPRESSION: No acute chest disease. ACT 112: Negative or not required by law. Electronically signed by: Eder Marte M.D. 11/17/2023 5:55 PM
[2023-11-17 18:10] LABS: Albumin Globulin Ratio 1.2 (0.9-2); Albumin Level 3.7 gm/dl (3.4-5.0); BUN Creatinine Ratio 18.8 (10-20); Bilirubin,Total 0.4 mg/dl (0.2-1.0); Creatinine Clr Calc Pharmacy 58.8 ml/min; Est GFR (African American) 79.3 ml/min; Est GFR (Non-African American) 68.5 ml/min; Globulin 3.2 gm/dl (2.5-4.0); Potassium 4.1 mmol/L (3.5-5.1); Total Protein 6.9 gm/dl (6.0-8.3); Troponin I High Sensitivity 4.1 pg/ml (0-14)
[2023-11-17 18:16] LABS: Anisocytosis Present; Polychromasia 1+; Toxic Vacuolation 1+
[2023-11-17 18:18] LABS: Partial Thromboplastin Time 27 Seconds (21-31); Prothrombin Time 11.2 Seconds (9.0-12.0)
--- NOTE | 2023-11-17 19:39 | Emergency Department Note ---
Impression & Plan Shortness of breath at rest, Mild persistent asthma, PVCs (premature ventricular contractions) ED Provider Note NAME: SMILEY AGUIRRE AGE: 73 SEX: F : 1950 ARRIVES VIA: Walk-In INFORMANT: Patient ED PROVIDER(S): Tremaine Mitchell MD CHIEF COMPLAINT: Shortness of breath. Referred. PLAN: Disposition: Admit MEDICAL DECISION MAKING: The patient is a pleasant 73-year-old woman with a past medical history of asthma, ulcerative colitis, iron deficiency anemia, GERD, hypertension, hyperlipidemia who presents to the emergency department via walk-in for evaluation of persistent shortness of breath tightness the setting of being admitted to this facility from 11/10-11/11 for bronchitis. Of note, the patient had an elevated BNP at the time in the 400s which was attributed to the patient's frequent PVCs at the time. Patient reports that her shortness of breath has not really improved since her discharge though admits that her intractable coughing has. She has subsequently followed up with pulmonology and was placed on a course of steroids but still despite this has not improved. She when she contacted the pulmonary office and was referred to the emergency department by the triage nurse. Patient denies any fevers. She denies any significant wheezing but feels tightness in wheezing in her upper chest/throat. She denies any nausea, vomiting or diarrhea. Of note, the patient did arrive to emergency department during time of high volume, acuity and prolonged emergency department waiting times. Critical pathways initiated from triage. On evaluation, the patient is no distress, afebrile with stable vital signs. O2 saturation is 93% and greater on room air. She appears euvolemic. There is no significant wheezing on exam. EKG without overt acute ischemia. CXR negative for acute cardiopulmonary process per my personal preliminary review/interpretation. WBC 11.6 K with neutrophil predominance though no left shift, nonspecific. H/H within normal limits. Platelets 766 K, nonspecific and likely reactive. Glucose is elevated at 325 without metabolic acidosis. AST and ALT are 90 and 90, respectively, mildly increased from prior range values nonspecific. High- sensitivity troponin is 4.1, within normal limits. BNP is normal today. Procalcitonin is not elevated. Respiratory viral consuls BioFire was negative. CTA of the chest was repeated given the patient's prior elevated BNP and suboptimal assessment of segmental and subsegmental vessels. This was again negative for PE. No focal consolidation. Description of curvilinear changes involving bilateral lower lobes, right greater than left are noted without focal consolidation. Given the persistence of the patient's dyspnea at rest and with minimal exertion patient does agree with plan for admission for further management. Solu-Medrol, Xopenex and guaifenesin provided. Patient was additionally provided with flutter valve. Dr. Seay, [facility] hospitalist, to evaluate the patient for admission. Further management per admitting team. Triage Nursing notes reviewed and agree them. Prior/external medical records reviewed Vital Signs: reviewed Differential diagnosis: Reactive airway disease, pneumonia, pneumothorax, COPD, CHF, infections, cardiac ischemia, pulmonary embolism, musculoskeletal, gastrointestinal, as well as other pathologies. ER treatment provided: See below. Diagnostics interpreted by me: ECG: NSR, 77 bpm, occasional pvcs, no overt ST elevation or depression. Cardiac Monitoring: An order for continuous cardiac monitoring was placed and demonstrated NSR, 77 bpm, occasional pvcs. Laboratory studies: See below Imaging studies: See below Consultation(s): Dr. Seay, [facility] hospitalist HPI: The patient is a pleasant 73-year-old woman with a past medical history of asthma, ulcerative colitis, iron deficiency anemia, GERD, hypertension, hyperlipidemia who presents to the emergency department via walk-in for evaluation of persistent shortness of breath tightness the setting of being admitted to this facility and discharged on 11/06 for bronchitis. Of note, the patient had an elevated BNP at the time in the 400s which was attributed to the patient's frequent PVCs at the time. Patient reports that her shortness of breath has not really improved since her discharge though admits that her intractable coughing has. She has subsequently followed up with pulmonology and was placed on a course of steroids but still despite this has not improved. She when she contacted the pulmonary office and was referred to the emergency department by the triage nurse. Patient denies any fevers. She denies any significant wheezing but feels tightness in wheezing in her upper chest/throat. She denies any nausea, vomiting or diarrhea. ROS: See above HPI for pertinent positives & negatives. A total of 10 systems reviewed and were otherwise negative. VITALS:See Below PHYSICAL EXAMINATION: GENERAL: Awake, alert, in no distress HENT: Normocephalic, atraumatic. Oropharynx unremarkable. EYES: Normal conjunctiva. Sclera non-icteric. NECK: Supple. No nuchal rigidity. FROM. No JVD. RESPIRATORY: Clear to auscultation. CARDIAC: Regular rate, normal rhythm. Extremities warm and well perfused. Pulses equal. ABDOMEN: Soft, non-distended. No tenderness to palpation. No rebound or guarding. No masses. MUSCULOSKELETAL: Chest examination reveals no tenderness. The back is symmetrical on inspection without obvious abnormality. There is no CVA tenderness to palpation. No joint edema. LOWER EXTREMITIES: Calves are equal size bilaterally and non-tender. No edema. No discoloration. NEURO: Normal sensorium. No sensory or motor deficits noted. SKIN: No rash or jaundice noted. 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 Ulcerative colitis (Chronic) Mild persistent asthma (Chronic) Lung nodule seen on imaging study (Chronic) Iron deficiency anemia (Chronic) GERD (gastroesophageal reflux disease) (Chronic) Anxiety (Chronic) Hyperlipidemia (Chronic) Hypertension (Chronic) Medical History History of colon polyps History of squamous cell carcinoma 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 Denies recent imaging. Did see Dr. Smith and specialist at [facility] upon initial diagnosis. reports no further monitoring indicated. PRES (posterior reversible encephalopathy syndrome) (04/2020) Erythema nodosum Leukocytoclastic vasculitis History of esophageal dilatation Surgical History History of dilatation and curettage Status post Mohs surgery H/O removal of cyst Right breast S/P knee surgery Right knee S/P laparoscopic hysterectomy History of esophagogastroduodenoscopy (EGD) History of tonsillectomy History of colonoscopy Family History Unknown Cancer Father Esophageal cancer Transient ischemic attack Pulmonary embolism Brother Prostate cancer Mother Hypertension Family history of diabetes mellitus Sister Breast cancer FH: breast cancer in first degree relative Denies family history of Ovarian cancer Myocardial infarction Colorectal cancer Social History Smoking Status: Former smoker Tobacco Type: Cigarettes Age Started Using Tobacco: 17; Age Quit Using Tobacco: 33; Second Hand Exposure: No; Do You Dip or Chew Tobacco: No; Hx Alcohol Use: Yes Alcohol type: wine Alcohol Intake Frequency: Never Hx Substance Use: No Preferred Language: Turkmen Communication Ability: Effective Visual Impairment: No Limitations Hearing Ability: Normal 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 Beliefs That Will Affect Care: None marital status: Current Living Situation: Spouse current occupational status: retired current occupation: used to work at the pain clinic Other Information That Helps Us Care for You: No Feels Safe at Home: Yes Safety Concerns: Feels Safe At This Time Childhood Exposure to Second-Hand Smoke: No Diet: regular caffeine: Yes during the past year weight has: remained stable Dental Care, Regularly: Yes Physical Activity Frequency: Does not Exercise Seatbelt Use: always Sunscreen Use: Yes Assistive Devices: Contacts and Glasses Allergies Allergies Allergy/AdvReac Type Severity Reaction Status Date / Time adalimumab [From Humira] Allergy Intermediate RED PATCHES Verified 11/17/23 20:33 ciprofloxacin Allergy Intermediate RASH Verified 11/17/23 20:33 infliximab Allergy Intermediate RED Verified 11/17/23 20:33 BLOCHES ON CHEST adhesive AdvReac Intermediate SORE RED Verified 11/17/23 20:33 SKIN codeine AdvReac Intermediate HEART Verified 11/17/23 20:33 PALPATATIONS lisinopril AdvReac Intermediate Cough Verified 11/17/23 20:33 losartan AdvReac Intermediate COUGH Verified 11/17/23 20:33 nitrofurantoin AdvReac Intermediate VASCULITIS--TOLD Verified 11/17/23 20:33 [From Macrodantin] NOT TO TAKE AGAIN. STITCHES Allergy Intermediate REDNESS/PT Uncoded 11/17/23 20:33 DOES NOT KNOW TYPE OF STITCHES Home Meds Home Medications Medication Instructions Recorded Confirmed loratadine 10 mg tablet (Claritin) 10 mg PO DAILY PRN Congestion 08/07/18 11/17/23 aspirin 81 mg capsule 81 mg PO QPM 03/23/21 11/17/23 triamterene 37.5 0.5 tab PO QAM 07/25/23 11/17/23 mg-hydrochlorothiazide 25 mg tablet verapamil 120 mg 24 hr 120 mg PO HS 07/25/23 11/17/23 capsule,extended release mecobalamin (vitamin B12) 1,000 1,000 mcg PO DAILY 08/07/23 11/17/23 mcg lozenges alendronate 70 mg tablet 70 mg PO WK 11/11/23 11/17/23 alprazolam 0.25 mg tablet 0.25 - 0.5 mg PO DAILY PRN Anxiety 11/11/23 11/17/23 with flying cholecalciferol (vitamin D3) 25 25 mcg PO DAILY 11/11/23 11/17/23 mcg (1,000 unit) tablet (Vitamin D3) prednisone 20 mg tablet 20 mg PO DAILY 11/17/23 11/17/23 Previous Rx's Medication Instructions Recorded Breo Ellipta 100 mcg-25 mcg/dose 1 inh inhalation QAM #3 Inhalers 12/15/22 powder for inhalation (fluticasone furoate-vilanterol) mercaptopurine 50 mg tablet 75 mg (1.5 x 50 mg) PO HS #135 tabs 03/10/23 albuterol sulfate 90 mcg/actuation 1 - 2 puff inhalation Q4 PRN 03/16/23 aerosol inhaler (ProAir HFA) Shortness Of Breath Or Wheezing #18 grams carvedilol 12.5 mg tablet 12.5 mg PO BID #180 tabs 06/07/23 lansoprazole 30 mg capsule,delayed 30 mg PO QAM #90 caps 06/19/23 release vedolizumab 300 mg intravenous 300 mg IV Q8WK #1 ea 09/12/23 solution (Entyvio) doxycycline hyclate 100 mg capsule 100 mg PO BID #10 caps 11/12/23 nebulizers (AeroEclipse II #1 ea 11/15/23 Nebulizer) peak flow meter #1 ea 11/15/23 Results & Data (ED) Vital Signs Vital Signs - 24 hr 11/17/23 17:02 11/17/23 20:15 11/17/23 20:15 Temperature 36.3 C L Temperature Source Temporal Artery Scan Pulse Rate 68 Pulse Rate [Apical] 80 Respiratory Rate 16 18 Respiratory Effort / Characteristics Non-Labored Non-Labored Respiratory Depth Normal Normal Respiratory Pattern Regular Blood Pressure 131/72 Blood Pressure [Left Arm] 151/90 H Blood Pressure Mean 91 Blood Pressure Mean [Left Arm] 110 Pulse Oximetry 94 95 97 Oxygen Delivery Method Room Air Room Air Room Air Sepsis Recent Fever Within 48 Hours No Sepsis New/Unexplained Change in Mental Status No Sepsis Action Taken by Nursing No Action Required 11/17/23 20:15 11/17/23 20:53 11/17/23 22:55 Temperature Temperature Source Pulse Rate 75 Pulse Rate [Apical] 71 Respiratory Rate 18 Respiratory Effort / Characteristics Non-Labored Respiratory Depth Normal Respiratory Pattern Regular Blood Pressure Blood Pressure [Left Arm] 130/75 Blood Pressure Mean Blood Pressure Mean [Left Arm] 93 Pulse Oximetry 97 95 Oxygen Delivery Method Room Air Room Air Sepsis Recent Fever Within 48 Hours Sepsis New/Unexplained Change in Mental Status Sepsis Action Taken by Nursing Laboratory Data Attestation: I reviewed the patient's lab results. 11/17/23 17:23 11/17/23 17:23 Lab Results 11/17/23 11/17/23 11/17/23 Range/Units 17:23 20:13 20:16 WBC 11.68 H (4.8-10.8) K/ul RBC 5.77 H (4.20-5.40) M/uL Hgb 15.2 (12.0-16.0) g/dl Hct 46.1 (37.0-47.0) % MCV 79.9 L (80.0-100.0) fL MCH 26.3 (25.0-34.0) pg MCHC 33.0 (32.0-36.0) g/dL RDW Std Deviation 54.4 H (36.4-46.3) fL RDW Coeff of Isiah 20.3 H (11.5-14.5) % Plt Count 766 H (130-400) K/uL MPV 9.0 L (9.4-12.4) fL Immature Gran % (Auto) 0.6 % Neut % (Auto) 87.7 % Lymph % (Auto) 9.3 % [place] % (Auto) 1.5 % Eos % (Auto) 0.4 % Baso % (Auto) 0.5 % Neut # (Auto) 10.23 H (1.40-6.50) K/uL Lymph # (Auto) 1.09 L (1.20-3.40) K/uL [place] # (Auto) 0.18 (0.11-0.59) K/uL Eos # (Auto) 0.05 (0.00-0.50) K/uL Baso # (Auto) 0.06 (0.00-0.20) K/uL Immature Gran # (Auto) 0.07 (0.01-0.20) K/uL Toxic Vacuolation 1+ Polychromasia 1+ Anisocytosis Present PT 11.2 (9.0-12.0) Seconds INR 1.0 (0.9-1.1) APTT 27 (21-31) Seconds PTT Ratio 1.0 Sodium 130 L (136-145) mmol/L Potassium 4.1 (3.5-5.1) mmol/L Chloride 98 (98-107) mmol/L Carbon Dioxide 22 (21-32) mmol/L Anion Gap 10 (3-11) BUN 16 (6-23) mg/dl Creatinine 0.85 (0.6-1.2) mg/dl Est Cr Clr Drug Dosing 58.8 ml/min Est GFR ( Amer) 79.3 ml/min Est GFR (Non-Af Amer) 68.5 ml/min BUN/Creatinine Ratio 18.8 (10-20) Glucose 325 H* (70-99(Fasting)) mg/dl Calcium 9.0 (8.6-10.3) mg/dl Magnesium 1.8 (1.7-2.4) mg/dl Total Bilirubin 0.4 (0.2-1.0) mg/dl AST 90 H (13-39) U/L ALT 90 H (7-52) U/L Alkaline Phosphatase 59 (34-104) U/L Troponin I High Sens 4.1 (0-14) pg/ml B-Natriuretic Peptide 35 (0-100) pg/ml Total Protein 6.9 (6.0-8.3) gm/dl Albumin 3.7 (3.4-5.0) gm/dl Globulin 3.2 (2.5-4.0) gm/dl Albumin/Globulin Ratio 1.2 (0.9-2) Procalcitonin 0.04 (0-0.5) ng/ml Adenovirus (PCR) Not Detected (NotDetected) B. pertussis DNA (PCR) Not Detected (NotDetected) B.parapertussis DNA PCR Not Detected (NotDetected) C. pneumoniae DNA (PCR) Not Detected (NotDetected) Coronavirus OC43 (PCR) Not Detected (NotDetected) Coronavirus HKU1 (PCR) Not Detected (NotDetected) Coronavirus 229E (PCR) Not Detected (NotDetected) SARS-CoV-2 (PCR) Not Detected (NotDetected) Coronavirus NL63 (PCR) Not Detected (NotDetected) Human Metapneumovir PCR Not Detected (NotDetected) Influenza Type A (PCR) Not Detected (NotDetected) Influenza Type B (PCR) Not Detected (NotDetected) M. pneumoniae (PCR) Not Detected (NotDetected) Parainfluenza 1 (PCR) Not Detected (NotDetected) Parainfluenza 2 (PCR) Not Detected (NotDetected) Parainfluenza 3 (PCR) Not Detected (NotDetected) Parainfluenza 4 (PCR) Not Detected (NotDetected) RSV (PCR) Not Detected (NotDetected) Entero/Rhino (PCR) Not Detected (NotDetected) Administered Medications Azithromycin 500 mg/ Dextrose 255 mls @ 125 mls/hr IV NOW ONE Stop: 11/18/23 03:02 Last Admin: 11/18/23 01:27 Dose: 125 mls/hr Documented By: RUPAL Magnesium Sulfate/Dextrose (Magnesium Sulfate / D5w) 1 gm in 100 mls @ 50 mls/hr IV Q2H BARBARA Stop: 11/18/23 05:14 Last Admin: 11/18/23 01:27 Dose: 50 mls/hr Documented By: RUPAL Discontinued Medications Alprazolam (Alprazolam 0.5 Mg Tablet) 0.5 mg PO NOW STA Stop: 11/17/23 23:04 Last Admin: 11/17/23 23:28 Dose: 0.5 mg Documented By: BALJIT Guaifenesin (Guaifenesin 600 Mg Tabcr) 1,200 mg PO NOW STA Stop: 11/17/23 22:14 Last Admin: 11/17/23 22:27 Dose: Not Given Documented By: BALJIT Ioversol (Optiray 320 125ml) 118 ml IV ONCE ONE Stop: 11/17/23 19:47 Last Admin: 11/17/23 19:47 Dose: 118 ml Documented By: FRANDY Levalbuterol HCl (Levalbuterol Hcl 0.63 Mg/3 Ml Neb) 0.63 mg NEB NOW STA; Protocol Stop: 11/17/23 22:14 Last Admin: 11/17/23 22:23 Dose: 0.63 mg Documented By: BALJIT Methylprednisolone (Methylprednisolone 125 Mg/2 Ml Vial) 60 mg IV NOW STA Stop: 11/17/23 22:14 Last Admin: 11/17/23 22:23 Dose: 60 mg Documented By: BALJIT Imaging Data Radiologist's Impression: Chest X-Ray 11/17/23 17:05 XR chest 1V not portable CLINICAL HISTORY: Chest pain, nonspecific TECHNIQUE: Single frontal radiograph of the chest was obtained. Comparison: Comparison is made to chest radiograph 11/11/2023 FINDINGS: No lines and tubes are seen. The cardiomediastinal silhouette is normal. The lungs are clear. No evidence of pleural effusion or pneumothorax. IMPRESSION: No acute chest disease. ACT 112: Negative or not required by law. Electronically signed by: Eder Marte M.D. 11/17/2023 5:55 PM Chest CTA 11/17/23 19:37 Exam(s): CTA CHEST IV Amt: 118 ml [id number] EXAM: CT Angiography Chest With Intravenous Contrast CLINICAL HISTORY: sob, elevated bnp, r/o PE. TECHNIQUE: Axial computed tomographic angiography images of the chest with intravenous contrast. CTDI is 74 mGy and DLP is 1379.47 mGy-cm. Automated exposure control was utilized for the study. A dose lowering technique was utilized adhering to the principles of ALARA. MIP reconstructed images were created and reviewed. COMPARISON: CTA chest dated 11/11/2023 FINDINGS: Pulmonary arteries: Accounting for respiratory artifact, there is no definite evidence for pulmonary embolism. Aorta: No acute findings. No thoracic aortic aneurysm. Lungs: Curvilinear changes noted involving the bilateral lower lobes, right greater than left and inferior lingular segments. No focal airspace consolidation. No definitive irreversible fibrotic changes. The lungs are moderately distended without hyperexpansion. The previously noted subcentimeter pulmonary nodule in the right lower lobe is not clearly delineated with curvilinear changes in this region. Pleural space: Unremarkable. No significant effusion. No pneumothorax. Heart: Unremarkable. No cardiomegaly. No significant pericardial effusion. Bones/joints: No acute fracture. No dislocation. Soft tissues: Unremarkable. Lymph nodes: Unremarkable. No enlarged lymph nodes. IMPRESSION: 1. Accounting for respiratory artifact, there is no definite evidence for pulmonary embolism. 2. Curvilinear changes noted involving the bilateral lower lobes, right greater than left and inferior lingular segments. No focal airspace consolidation. No pleural effusion or pneumothorax. 3. The previously noted subcentimeter pulmonary nodule in the right lower lobe is not clearly delineated with curvilinear changes in this region. Electronically signed by: Atilio Hernandez MD 11/17/23 22:09 PM Discharge Plan Visit Data Chief Complaint: Illness ED Provider: Tremaine Mitchell Discharge Problem: Shortness of breath at rest, Mild persistent asthma, PVCs (premature ventricular contractions) Patient Disposition: Admitted As Inpatient Discharge Instructions Interventions: ED Discharge Assessment Last Done: 11/18/23 00:20 Discharge Problem: Mild persistent asthma Qualifiers: Asthma complication type: unspecified Qualified Code(s): J45.30 - Mild persistent asthma, uncomplicated
[2023-11-17] MEDS: OPTIRAY 320 125ml IV ONE (19:47)
[2023-11-17 20:34] LABS: Magnesium 1.8 mg/dl (1.7-2.4)
[2023-11-17 21:26] LABS: Adenovirus PCR Not Detected (NotDetected); Bordetella parapertussis PCR Not Detected (NotDetected); Bordetella pertussis PCR Not Detected (NotDetected); Chlamydia pneumoniae PCR Not Detected (NotDetected); Coronavirus 229E PCR Not Detected (NotDetected); Coronavirus CoV-2 (COVID19)PCR Not Detected (NotDetected); Coronavirus HKU1 PCR Not Detected (NotDetected); Coronavirus NL63 PCR Not Detected (NotDetected); Coronavirus OC43PCR Not Detected (NotDetected); Human Metapneumovirus PCR Not Detected (NotDetected); Influenza A PCR Not Detected (NotDetected); Influenza B PCR Not Detected (NotDetected); Mycoplasma pneumoniae PCR Not Detected (NotDetected); Parainfluenza Virus 1 PCR Not Detected (NotDetected); Parainfluenza Virus 2 PCR Not Detected (NotDetected); Parainfluenza Virus 3 PCR Not Detected (NotDetected); Parainfluenza Virus 4 PCR Not Detected (NotDetected); Respiratory Syncytial VirusPCR Not Detected (NotDetected); Rhinovirus/Enterovirus PCR Not Detected (NotDetected)
--- NOTE | 2023-11-17 22:10 | CT Scan Report ---
Exam(s): CTA CHEST IV Amt: 118 ml [id number] EXAM: CT Angiography Chest With Intravenous Contrast CLINICAL HISTORY: sob, elevated bnp, r/o PE. TECHNIQUE: Axial computed tomographic angiography images of the chest with intravenous contrast. CTDI is 74 mGy and DLP is 1379.47 mGy-cm. Automated exposure control was utilized for the study. A dose lowering technique was utilized adhering to the principles of ALARA. MIP reconstructed images were created and reviewed. COMPARISON: CTA chest dated 11/11/2023 FINDINGS: Pulmonary arteries: Accounting for respiratory artifact, there is no definite evidence for pulmonary embolism. Aorta: No acute findings. No thoracic aortic aneurysm. Lungs: Curvilinear changes noted involving the bilateral lower lobes, right greater than left and inferior lingular segments. No focal airspace consolidation. No definitive irreversible fibrotic changes. The lungs are moderately distended without hyperexpansion. The previously noted subcentimeter pulmonary nodule in the right lower lobe is not clearly delineated with curvilinear changes in this region. Pleural space: Unremarkable. No significant effusion. No pneumothorax. Heart: Unremarkable. No cardiomegaly. No significant pericardial effusion. Bones/joints: No acute fracture. No dislocation. Soft tissues: Unremarkable. Lymph nodes: Unremarkable. No enlarged lymph nodes. IMPRESSION: 1. Accounting for respiratory artifact, there is no definite evidence for pulmonary embolism. 2. Curvilinear changes noted involving the bilateral lower lobes, right greater than left and inferior lingular segments. No focal airspace consolidation. No pleural effusion or pneumothorax. 3. The previously noted subcentimeter pulmonary nodule in the right lower lobe is not clearly delineated with curvilinear changes in this region. Electronically signed by: Atilio Hernandez MD 11/17/23 22:09 PM
[2023-11-17] MEDS: LEVALBUTEROL HCL 0.63 MG/3 ML NEB NEB STA (22:23)
[2023-11-17] MEDS: methylPREDNISolone 125 MG/2 ML VIAL IV STA (22:23)
[2023-11-17] MEDS: guaiFENesin 600 MG TABCR PO STA (22:27)
--- NOTE | 2023-11-17 22:31 | History & Physical Report ---
Date of Service November 17, 2023 Assessment & Plan (1) Acute asthma exacerbation: (2) Wheezing: (3) Prediabetes: (4) Paroxysmal supraventricular tachycardia: (5) Ulcerative colitis: (6) Mild persistent asthma: (7) GERD (gastroesophageal reflux disease): (8) Anxiety: (9) Hyperlipidemia: (10) Hypertension: Plan Cathy is a 73F w/ PMH of HTN, HLD, GERD, anxiety, mild persistent asthma (follows w/ Pulmonology, currently on steroids), paroxysmal SVT, ulcerative colitis, recurrent UTIs, and prediabetes who is being admitted for uncontrolled asthma exacerbation. Patient was recently admitted 11/10-11/11 for treatment of an asthma exacerbation. Acute Asthma Exacerbation - Likely provoked by viral infection, now 2 weeks prior - Recent admission 11/10-11/11 for same symptoms - No improvement with outpatient steroids, Prednisone 40 mg daily - Patient received Levalbuterol Neb in ED, now w/o wheezing on exam - Vitals all wnl, no oxygen requirement - Methylprednisolone 60 mg IV Q24h continued on admission - Azithromycin 500 mg IV x 1, followed by 250 mg IV daily ordered - Duonebs and albuterol ordered - Continue pulmonary toilet, home inhalers, and home supportive measures - Pulmonology consultation placed (requested by patient) Chronic Conditions - Anxiety: Alprazolam ordered PRN - UC: ongoing Mercaptopurine - pSVT: Carvedilol ongoing, rate controlled - GERD: continue Lansoprazole - HTN: continue Triamterene-HCTZ and Verapamil - Prediabetes: SSI ordered while on steroids, no home meds Code: Full Diet: HH/DM IVF: None Dispo: Med/Surg Consults: Pulm History of Present Illness Primary Care Provider: Mar Whitaker MD Cathy is a 73F w/ PMH of HTN, HLD, GERD, anxiety, asthma, paroxysmal SVT, ulcerative colitis, recurrent UTIs, and prediabetes who presents with concern of ongoing dyspnea and cough. Patient notes that three weeks ago she was on vacation with friends. During their trip, one of their friends got sick. Upon return home (last week) patient and her developed URI symptoms; cough, congestion, fevers, chills. Patient notes her symptoms progressed and she saw a provider 11/08 who diagnosed her with viral bronchitis and prescribed her Azithromycin. Patient was subsequently admitted 11/10 for an asthma exacerbation and was discharged 11/11 with Doxycycline and Prednisone 20 mg. Patient subsequently saw her automation manager 11/14 and was again noted to have an acute asthma exacerbation in the setting of viral bronchitis. Prednisone was increased to 40 mg daily at this time and Breo was changed to Breztri. Patient notes that she presented to the hospital tonight because she was not feeling any better. She continues to have a cough that feels like its sitting in her throat and wheezing. She called her Tower Equipment Repairer's office and they recommended that she present to the hospital as she had not responded to outpatient steroids. Patient denies any double sickeni ng. Notes that her anxiety/insomnia increases with steroid use. She has continued to take antihistamine and decongestants at home. Allergies Allergy/AdvReac Type Severity Reaction Status Date / Time adalimumab [From Humira] Allergy Intermediate RED PATCHES Verified 11/17/23 20:33 ciprofloxacin Allergy Intermediate RASH Verified 11/17/23 20:33 infliximab Allergy Intermediate RED Verified 11/17/23 20:33 BLOCHES ON CHEST adhesive AdvReac Intermediate SORE RED Verified 11/17/23 20:33 SKIN codeine AdvReac Intermediate HEART Verified 11/17/23 20:33 PALPATATIONS lisinopril AdvReac Intermediate Cough Verified 11/17/23 20:33 losartan AdvReac Intermediate COUGH Verified 11/17/23 20:33 nitrofurantoin AdvReac Intermediate VASCULITIS--TOLD Verified 11/17/23 20:33 [From Macrodantin] NOT TO TAKE AGAIN. STITCHES Allergy Intermediate REDNESS/PT Uncoded 11/17/23 20:33 DOES NOT KNOW TYPE OF STITCHES Home Medications Medication Instructions Recorded Confirmed Type loratadine 10 mg tablet (Claritin) 10 mg PO DAILY PRN Congestion 08/07/18 11/17/23 History aspirin 81 mg capsule 81 mg PO QPM 03/23/21 11/17/23 History Breo Ellipta 100 mcg-25 mcg/dose 1 inh inhalation QAM #3 Inhalers 12/15/22 11/17/23 Rx powder for inhalation (fluticasone furoate-vilanterol) mercaptopurine 50 mg tablet 75 mg (1.5 x 50 mg) PO HS #135 tabs 03/10/23 11/17/23 Rx albuterol sulfate 90 mcg/actuation 1 - 2 puff inhalation Q4 PRN 03/16/23 11/17/23 Rx aerosol inhaler (ProAir HFA) Shortness Of Breath Or Wheezing #18 grams carvedilol 12.5 mg tablet 12.5 mg PO BID #180 tabs 06/07/23 11/17/23 Rx lansoprazole 30 mg capsule,delayed 30 mg PO QAM #90 caps 06/19/23 11/17/23 Rx release triamterene 37.5 0.5 tab PO QAM 07/25/23 11/17/23 History mg-hydrochlorothiazide 25 mg tablet verapamil 120 mg 24 hr 120 mg PO HS 07/25/23 11/17/23 History capsule,extended release mecobalamin (vitamin B12) 1,000 1,000 mcg PO DAILY 08/07/23 11/17/23 History mcg lozenges vedolizumab 300 mg intravenous 300 mg IV Q8WK #1 ea 09/12/23 11/17/23 Rx solution (Entyvio) alendronate 70 mg tablet 70 mg PO WK 11/11/23 11/17/23 History alprazolam 0.25 mg tablet 0.25 - 0.5 mg PO DAILY PRN Anxiety 11/11/23 11/17/23 History with flying cholecalciferol (vitamin D3) 25 25 mcg PO DAILY 11/11/23 11/17/23 History mcg (1,000 unit) tablet (Vitamin D3) doxycycline hyclate 100 mg capsule 100 mg PO BID #10 caps 11/12/23 11/17/23 Rx nebulizers (AeroEclipse II #1 ea 11/15/23 11/15/23 Rx Nebulizer) peak flow meter #1 ea 11/15/23 11/15/23 Rx prednisone 20 mg tablet 20 mg PO DAILY 11/17/23 11/17/23 History Past Med/Surg History Problem List (Updated 11/18/23 @ 17:59 by Serenity Murillo PA-C) Thrombocytosis Cough PVCs (premature ventricular contractions) (Acute) Shortness of breath at rest (Acute) Acute asthma exacerbation SOB (shortness of breath) (Acute) Wheezing (Acute) Prediabetes (Chronic) Recurrent UTI (Chronic) Cervicogenic headache (Chronic) Myofascial pain (Chronic) Right knee DJD (Chronic) Vitamin D deficiency (Chronic) Esophageal dysphagia (Chronic) Osteoporosis (Chronic) Paroxysmal supraventricular tachycardia (Chronic) 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 Ulcerative colitis (Chronic) Mild persistent asthma (Chronic) Lung nodule seen on imaging study (Chronic) Iron deficiency anemia (Chronic) GERD (gastroesophageal reflux disease) (Chronic) Anxiety (Chronic) Hyperlipidemia (Chronic) Hypertension (Chronic) Medical History History of colon polyps History of squamous cell carcinoma 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 Denies recent imaging. Did see Dr. Smith and specialist at [facility] upon initial diagnosis. reports no further monitoring indicated. PRES (posterior reversible encephalopathy syndrome) (04/2020) Erythema nodosum Leukocytoclastic vasculitis History of esophageal dilatation Surgical History History of dilatation and curettage Status post Mohs surgery H/O removal of cyst Right breast S/P knee surgery Right knee S/P laparoscopic hysterectomy History of esophagogastroduodenoscopy (EGD) History of tonsillectomy History of colonoscopy Family History Unknown Cancer Father Esophageal cancer Transient ischemic attack Pulmonary embolism Brother Prostate cancer Mother Hypertension Family history of diabetes mellitus Sister Breast cancer FH: breast cancer in first degree relative Denies family history of Ovarian cancer Myocardial infarction Colorectal cancer Social History Smoking Status: Former smoker Tobacco Type: Cigarettes Age Started Using Tobacco: 17; Age Quit Using Tobacco: 33; Second Hand Exposure: No; Do You Dip or Chew Tobacco: No; Hx Alcohol Use: Yes Alcohol type: wine Alcohol Intake Frequency: Never Hx Substance Use: No Preferred Language: Bulgarian Communication Ability: Effective Visual Impairment: No Limitations Hearing Ability: Normal Gill Net Stringer Required: No Beliefs That Will Affect Care: None marital status: Current Living Situation: Spouse current occupational status: retired current occupation: used to work at the pain clinic Other Information That Helps Us Care for You: No Feels Safe at Home: Yes Safety Concerns: Feels Safe At This Time Childhood Exposure to Second-Hand Smoke: No Diet: regular caffeine: Yes during the past year weight has: remained stable Dental Care, Regularly: Yes Physical Activity Frequency: Does not Exercise Seatbelt Use: always Sunscreen Use: Yes Assistive Devices: None Physical Exam Physical Exam: Gen: NAD, alert, interactive HEENT: Supple, no LAD, no thyromegaly, no JVD Resp:Non-labored, no wheezing/rhonchi/rales, restricted air movement bilaterally CV:RRR, normal S1/S2, no M/R/G Abd: Soft, non-distended, no TTP, normoactive bowels, no masses Extr: 2+ dp bilaterally, no edema Skin: No rashes lesions or erythema Results & Data Results & Data Vital Signs (Past 12 Hours) Vital Signs Temp Pulse Pulse Resp BP BP Pulse Ox 11/17/23 20:53 75 11/17/23 20:15 97 11/17/23 20:15 97 11/17/23 20:15 80 18 151/90 H 95 11/17/23 17:02 36.3 C L 68 16 131/72 94 O2 Del Method 11/17/23 20:53 11/17/23 20:15 Room Air 11/17/23 20:15 Room Air 11/17/23 20:15 Room Air 11/17/23 17:02 Room Air Supervising Physician Co-Signing Physician Notes Attending addendum: I have physically seen this patient, have supervised the medical residents activities, and agree with the H&P unless as otherwise noted. Assessment and Plan: Asthma exacerbation- From the ED received the following: Solu-Medrol 60 mg IV, Xopenex nebulizer, prednisone 12 mg p.o. x 1 Chest x-ray negative BioFire negative CTA chest PE protocol negative Solu-Medrol 60 mg IV daily Azithromycin 500 mg IV daily Duonebs every 4 hours while awake and every 2 hours when necessary. Continue outpatient inhaler regimen as noted Thrombocytosis- Platelets 766 upon admission, with base around 587 Check a peripheral smear At least in part elevation is reactive in nature Should establish with hematology/oncology, may be candidate for hydroxyurea Ulcerative colitis- Continue mercaptopurine Temporarily hold prednisone while on Solu-Medrol On vedolizumab every 8 weeks as outpatient 11/21 Resident Activity Tracking Resident Involvement: Resident Care Provided Care Provided: Adult Hospital Medicine (5) Ulcerative colitis Digestive disease complication type: without complication Ulcerative colitis location: ulcerative pancolitis Qualified Code(s): K51.00 - Ulcerative (chronic) pancolitis without complications (7) GERD (gastroesophageal reflux disease) Esophagitis presence: esophagitis presence not specified Qualified Code(s): K21.9 - Gastro-esophageal reflux disease without esophagitis
[2023-11-17] MEDS: ALPRAZolam 0.5 MG TABLET PO STA (23:28)
[2023-11-18] MEDS ORDERED: ACETAMINOPHEN 325 MG TAB PO PRN (00:50)
[2023-11-18] MEDS ORDERED: DEXTROSE 50% 50 ML SYRINGE IV PRN (00:50)
[2023-11-18] MEDS ORDERED: ALBUTEROL HFA 8 GM INHALER INH PRN (00:50)
[2023-11-18] MEDS ORDERED: VEDOLIZUMAB 300 MG/VIAL INJ IV SCH (00:50)
[2023-11-18] MEDS ORDERED: CARBOHYDRATES FOR HYPOGLYCEMIA PO PRN (00:50)
[2023-11-18] MEDS ORDERED: GLUCAGON FOR INJ 1 MG VIAL SQ PRN (00:50)
[2023-11-18] MEDS ORDERED: POLYETHYLENE (MIRALAX) 17 GM PACK PO PRN (00:50)
[2023-11-18] MEDS ORDERED: MELATONIN 3 MG TAB PO PRN (00:50)
[2023-11-18] MEDS ORDERED: ONDANSETRON INJ 2 MG/ML 2 ML VIAL IV PRN (00:50)
[2023-11-18] MEDS ORDERED: GLUCOSE 10 TAB/TUBE PO PRN (00:50)
[2023-11-18] MEDS ORDERED: GLUCOSE 40% GEL 15 GM TUBE PO PRN (00:50)
[2023-11-18] MEDS ORDERED: LORATADINE 10 MG TAB PO PRN (00:50)
[2023-11-18] MEDS: MAGNESIUM SULFATE / D5W 1 GM/100 ML BAG IV SCH (01:27)
[2023-11-18] MEDS: AZITHROMYCIN 500 MG in DEXTROSE 5% 250 ML IV ONE (01:27)
--- NOTE | 2023-11-18 08:02 | Pulmonary Consultation ---
Date of Consultation November 18, 2023 Assessment & Plan (1) SOB (shortness of breath): (2) Acute asthma exacerbation: (3) Cough: Plan Impression: 73-year-old female with mild airflow obstruction on PFTs admitted with recurrent cough failing prednisone. She is much better with Solu-Medrol. Recommendations: 1. Asthma: Continue Solu-Medrol for the next 24 hours at the patient's request. Can then likely transition to prednisone. Will place her on azithromycin as an anti-inflammatory agent as well. No evidence of pneumonia or infectious etiology. Consider outpatient exhaled nitric oxide and potentially repeating the patient's IgE level. 2. Cough: Multifactorial. Certainly components of upper airway cough syndrome may be at play. Cannot rule out vocal cord dysfunction as well. Recommend outpatient therapy with Flonase, saline sinus irrigation, and chlorpheniramine. These are not available in the hospital and again this is an outpatient evaluation. 3. Reflux: Continue medications. Anticipate short hospitalization. The patient is on room air and has no wheezing today. If she does well she can likely be transition to oral prednisone and follow-up in the outpatient setting with Dr. Perez at discharge. History of Present Illness Attending Physician: Isacc Grossman MD History of Present Illness Asked by hospitalist to assist patient management this patient admitted with asthma exacerbation. The patient is cared for by Dr. Perez in the outpatient setting and was last seen a few days ago. Patient is a 73-year-old female with a history of asthma. Last PFTs were performed May 2023 and showed an FEV1 of 1.71 L or 80% predicted with an FVC of 2.53 L or 90% predicted with a ratio of 67 and no change after administration of inhaled bronchodilators. She was hospitalized earlier this month with cough and chest congestion and had received azithromycin prior to admission. She received prednisone but states it was ineffectual. She was seen 3 days ago in the pulmonary clinic and placed back on a prednisone taper. Her cough persisted and she felt some tightness in her anterior chest which prompted her to come to the emergency room. She was admitted and received IV Solu-Medrol which she states has been markedly effective in improving her symptoms. She feels that her chest is loosening up but she is unable to expectorate any phlegm. She is not having any fevers chills or night sweats. She is complaining of some chronic sinus postnasal drip issues. She has never been evaluated for vocal cord dysfunction or upper airway cough syndrome. She does have reflux which is well-controlled on her medications. She states she usually only gets bronchitis once or twice a year. She does have albuterol and Breo to use at home. Review of her CBCs demonstrates that she has never had an elevated eosinophil count although it is unclear how many of these were performed on steroids. IgE level in 2019 was normal at 6 Allergies Allergy/AdvReac Type Severity Reaction Status Date / Time adalimumab [From Humira] Allergy Intermediate RED PATCHES Verified 11/17/23 20:33 ciprofloxacin Allergy Intermediate RASH Verified 11/17/23 20:33 infliximab Allergy Intermediate RED Verified 11/17/23 20:33 BLOCHES ON CHEST adhesive AdvReac Intermediate SORE RED Verified 11/17/23 20:33 SKIN codeine AdvReac Intermediate HEART Verified 11/17/23 20:33 PALPATATIONS lisinopril AdvReac Intermediate Cough Verified 11/17/23 20:33 losartan AdvReac Intermediate COUGH Verified 11/17/23 20:33 nitrofurantoin AdvReac Intermediate VASCULITIS--TOLD Verified 11/17/23 20:33 [From Macrodantin] NOT TO TAKE AGAIN. STITCHES Allergy Intermediate REDNESS/PT Uncoded 11/17/23 20:33 DOES NOT KNOW TYPE OF STITCHES Home Medications Medication Instructions Recorded Confirmed Type loratadine 10 mg tablet (Claritin) 10 mg PO DAILY PRN Congestion 08/07/18 11/17/23 History aspirin 81 mg capsule 81 mg PO QPM 03/23/21 11/17/23 History Breo Ellipta 100 mcg-25 mcg/dose 1 inh inhalation QAM #3 Inhalers 12/15/22 11/17/23 Rx powder for inhalation (fluticasone furoate-vilanterol) mercaptopurine 50 mg tablet 75 mg (1.5 x 50 mg) PO HS #135 tabs 03/10/23 11/17/23 Rx albuterol sulfate 90 mcg/actuation 1 - 2 puff inhalation Q4 PRN 03/16/23 11/17/23 Rx aerosol inhaler (ProAir HFA) Shortness Of Breath Or Wheezing #18 grams carvedilol 12.5 mg tablet 12.5 mg PO BID #180 tabs 06/07/23 11/17/23 Rx lansoprazole 30 mg capsule,delayed 30 mg PO QAM #90 caps 06/19/23 11/17/23 Rx release triamterene 37.5 0.5 tab PO QAM 07/25/23 11/17/23 History mg-hydrochlorothiazide 25 mg tablet verapamil 120 mg 24 hr 120 mg PO HS 07/25/23 11/17/23 History capsule,extended release mecobalamin (vitamin B12) 1,000 1,000 mcg PO DAILY 08/07/23 11/17/23 History mcg lozenges vedolizumab 300 mg intravenous 300 mg IV Q8WK #1 ea 09/12/23 11/17/23 Rx solution (Entyvio) alendronate 70 mg tablet 70 mg PO WK 11/11/23 11/17/23 History alprazolam 0.25 mg tablet 0.25 - 0.5 mg PO DAILY PRN Anxiety 11/11/23 11/17/23 History with flying cholecalciferol (vitamin D3) 25 25 mcg PO DAILY 11/11/23 11/17/23 History mcg (1,000 unit) tablet (Vitamin D3) doxycycline hyclate 100 mg capsule 100 mg PO BID #10 caps 11/12/23 11/17/23 Rx nebulizers (AeroEclipse II #1 ea 11/15/23 11/15/23 Rx Nebulizer) peak flow meter #1 ea 11/15/23 11/15/23 Rx prednisone 20 mg tablet 20 mg PO DAILY 11/17/23 11/17/23 History Patient History Medical History History of colon polyps History of squamous cell carcinoma 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 Denies recent imaging. Did see Dr. Smith and specialist at [facility] upon initial diagnosis. reports no further monitoring indicated. PRES (posterior reversible encephalopathy syndrome) (04/2020) Erythema nodosum Leukocytoclastic vasculitis History of esophageal dilatation Surgical History History of dilatation and curettage Status post Mohs surgery H/O removal of cyst Right breast S/P knee surgery Right knee S/P laparoscopic hysterectomy History of esophagogastroduodenoscopy (EGD) History of tonsillectomy History of colonoscopy Family History Unknown Cancer Father Esophageal cancer Transient ischemic attack Pulmonary embolism Brother Prostate cancer Mother Hypertension Family history of diabetes mellitus Sister Breast cancer FH: breast cancer in first degree relative Denies family history of Ovarian cancer Myocardial infarction Colorectal cancer Social History Smoking Status: Former smoker Tobacco Type: Cigarettes Age Started Using Tobacco: 17; Age Quit Using Tobacco: 33; Second Hand Exposure: No; Do You Dip or Chew Tobacco: No; Hx Alcohol Use: Yes Alcohol type: wine Alcohol Intake Frequency: Never Hx Substance Use: No Preferred Language: Cameroonian Communication Ability: Effective Visual Impairment: No Limitations Hearing Ability: Normal Emergency Dept Tech Required: No Beliefs That Will Affect Care: None marital status: Current Living Situation: Spouse current occupational status: retired current occupation: used to work at the pain clinic Other Information That Helps Us Care for You: No Feels Safe at Home: Yes Safety Concerns: Feels Safe At This Time Childhood Exposure to Second-Hand Smoke: No Diet: regular caffeine: Yes during the past year weight has: remained stable Dental Care, Regularly: Yes Physical Activity Frequency: Does not Exercise Seatbelt Use: always Sunscreen Use: Yes Assistive Devices: Contacts and Glasses Review of Systems Review of Systems: Please refer to hospitalist note. No additions or deletions Physical Exam 2 Constitutional: WD/WN, vitals as above Neck: trachea midline, no thyromegaly Respiratory: normal respiratory effort, lungs clear to auscultation Cardiovascular: RRR, no murmur, no edema Gastrointestinal (Abdomen): normal bowel sounds, soft, nontender, no hepatosplenomegaly Musculoskeletal: Extremities: extremities normal to inspection Skin: no rashes, warm and dry Neurologic: Nonfocal exam Lymphatic: no cervical lymphadenopathy Results & Data Results & Data Vital Signs (Past 12 Hours) Vital Signs Temp Pulse Pulse Pulse Resp BP Pulse Ox 11/18/23 07:10 36.7 C 93 H 17 152/81 H 94 11/18/23 00:30 11/18/23 00:30 36.5 C 77 18 154/80 H 94 11/18/23 00:08 81 18 125/83 96 11/17/23 22:55 71 18 130/75 95 11/17/23 20:53 75 11/17/23 20:15 97 11/17/23 20:15 97 11/17/23 20:15 80 18 151/90 H 95 O2 Del Method 11/18/23 07:10 Room Air 11/18/23 00:30 Room Air 11/18/23 00:30 Room Air 11/18/23 00:08 11/17/23 22:55 Room Air 11/17/23 20:53 11/17/23 20:15 Room Air 11/17/23 20:15 Room Air 11/17/23 20:15 Room Air Critical Care Results & Data Vital Signs (Past 12 Hours) Vital Signs Temp Pulse Pulse Pulse Resp BP Pulse Ox 11/18/23 07:10 36.7 C 93 H 17 152/81 H 94 11/18/23 00:30 11/18/23 00:30 36.5 C 77 18 154/80 H 94 11/18/23 00:08 81 18 125/83 96 11/17/23 22:55 71 18 130/75 95 11/17/23 20:53 75 11/17/23 20:15 97 11/17/23 20:15 97 11/17/23 20:15 80 18 151/90 H 95 O2 Del Method 11/18/23 07:10 Room Air 11/18/23 00:30 Room Air 11/18/23 00:30 Room Air 11/18/23 00:08 11/17/23 22:55 Room Air 11/17/23 20:53 11/17/23 20:15 Room Air 11/17/23 20:15 Room Air 11/17/23 20:15 Room Air Lab & Micro Results (Past 24 Hours) RBC 5.77 M/uL (4.20-5.40) H 11/17/23 WBC 11.68 K/ul (4.8-10.8) H 11/17/23 Hgb 15.2 g/dl (12.0-16.0) 11/17/23 Hct 46.1 % (37.0-47.0) 11/17/23 MCV 79.9 fL (80.0-100.0) L 11/17/23 MCH 26.3 pg (25.0-34.0) 11/17/23 MCHC 33.0 g/dL (32.0-36.0) 11/17/23 RDW Standard Deviation 54.4 fL (36.4-46.3) H 11/17/23 RDW Coefficient of Variation 20.3 % (11.5-14.5) H 11/17/23 Plt Count 766 K/uL (130-400) H 11/17/23 MPV 9.0 fL (9.4-12.4) L 11/17/23 Neutrophils (%) (Auto) 87.7 % 11/17/23 Lymphocytes (%) (Auto) 9.3 % 11/17/23 Monocytes # (Auto) 0.18 K/uL (0.11-0.59) 11/17/23 Eosinophils # (Auto) 0.05 K/uL (0.00-0.50) 11/17/23 Immature Granulocyte % (Auto) 0.6 % 11/17/23 Neutrophils # (Auto) 10.23 K/uL (1.40-6.50) H 11/17/23 Lymphocytes # (Auto) 1.09 K/uL (1.20-3.40) L 11/17/23 Monocytes # (Auto) 0.18 K/uL (0.11-0.59) 11/17/23 Eosinophils # (Auto) 0.05 K/uL (0.00-0.50) 11/17/23 Basophils # (Auto) 0.06 K/uL (0.00-0.20) 11/17/23 Immature Granulocyte # (Auto) 0.07 K/uL (0.01-0.20) 4 Polychromasia 1+ 11/17/23 Anisocytosis Present 11/17/23 Toxic Vacuolation 1+ 11/17/23 Na 130 mmol/L (136-145) L 11/17/23 K 4.1 mmol/L (3.5-5.1) 11/17/23 Cl 98 mmol/L (98-107) 11/17/23 CO2 22 mmol/L (21-32) 11/17/23 Anion Gap 10 (3-11) 11/17/23 BUN 16 mg/dl (6-23) 11/17/23 Creatinine 0.85 mg/dl (0.6-1.2) 11/17/23 Estimated GFR ( Amer) 79.3 ml/min 11/17/23 Estimated GFR (Non-Af Amer) 68.5 ml/min 11/17/23 BUN/Creatinine Ratio 18.8 (10-20) 11/17/23 Glu 325 mg/dl (70-99(Fasting)) H* 11/17/23 Ca 9.0 mg/dl (8.6-10.3) 11/17/23 Total Bilirubin 0.4 mg/dl (0.2-1.0) 11/17/23 AST 90 U/L (13-39) H 11/17/23 ALT 90 U/L (7-52) H 11/17/23 Alkaline Phosphatase 59 U/L (34-104) 11/17/23 TP 6.9 gm/dl (6.0-8.3) 11/17/23 Albumin 3.7 gm/dl (3.4-5.0) 11/17/23 Globulin 3.2 gm/dl (2.5-4.0) 11/17/23 Albumin/Globulin Ratio 1.2 (0.9-2) 11/17/23 Mg 1.8 mg/dl (1.7-2.4) 11/17/23 17:23 Calcium Level 9.0 mg/dl (8.6-10.3) 11/17/23 17:23 Prothromb Time International Ratio 1.0 (0.9-1.1) 11/17/23 17:2 3 Diagnostic Findings (Past 24 Hours) Chest X-Ray 11/17/23 17:05 XR chest 1V not portable CLINICAL HISTORY: Chest pain, nonspecific TECHNIQUE: Single frontal radiograph of the chest was obtained. Comparison: Comparison is made to chest radiograph 11/11/2023 FINDINGS: No lines and tubes are seen. The cardiomediastinal silhouette is normal. The lungs are clear. No evidence of pleural effusion or pneumothorax. IMPRESSION: No acute chest disease. ACT 112: Negative or not required by law. Electronically signed by: Eder Marte M.D. 11/17/2023 5:55 PM Chest CTA 11/17/23 19:37 Exam(s): CTA CHEST IV Amt: 118 ml [id number] EXAM: CT Angiography Chest With Intravenous Contrast CLINICAL HISTORY: sob, elevated bnp, r/o PE. TECHNIQUE: Axial computed tomographic angiography images of the chest with intravenous contrast. CTDI is 74 mGy and DLP is 1379.47 mGy-cm. Automated exposure control was utilized for the study. A dose lowering technique was utilized adhering to the principles of ALARA. MIP reconstructed images were created and reviewed. COMPARISON: CTA chest dated 11/11/2023 FINDINGS: Pulmonary arteries: Accounting for respiratory artifact, there is no definite evidence for pulmonary embolism. Aorta: No acute findings. No thoracic aortic aneurysm. Lungs: Curvilinear changes noted involving the bilateral lower lobes, right greater than left and inferior lingular segments. No focal airspace consolidation. No definitive irreversible fibrotic changes. The lungs are moderately distended without hyperexpansion. The previously noted subcentimeter pulmonary nodule in the right lower lobe is not clearly delineated with curvilinear changes in this region. Pleural space: Unremarkable. No significant effusion. No pneumothorax. Heart: Unremarkable. No cardiomegaly. No significant pericardial effusion. Bones/joints: No acute fracture. No dislocation. Soft tissues: Unremarkable. Lymph nodes: Unremarkable. No enlarged lymph nodes. IMPRESSION: 1. Accounting for respiratory artifact, there is no definite evidence for pulmonary embolism. 2. Curvilinear changes noted involving the bilateral lower lobes, right greater than left and inferior lingular segments. No focal airspace consolidation. No pleural effusion or pneumothorax. 3. The previously noted subcentimeter pulmonary nodule in the right lower lobe is not clearly delineated with curvilinear changes in this region. Electronically signed by: Atilio Hernandez MD 11/17/23 22:09 PM I & O Totals 24 Hours 11/17/23 11/18/23 11/19/23 06:59 06:59 06:59 Intake Total 445.833 / 445.833 Balance 445.833 / 445.833 Cumulative 11/17/23 16:58 thru 11/18/23 05:38 Intake Total 445.833 Balance 445.833 RT Ventilator Mngmt (Last Documented) Ventilator Ordered Settings Respiratory Rate 17 11/18/23 07:10 Ventilator - PT Measurements Respiratory Rate 17 PG Care Time/CCT Total # of Minutes Spent Total Time Spent with Patient: Total time spent is greater than 50% in coordination of care (as documented) at patient's floor/unit and/or counseling patient: Coding Level of Care Code 68999 INT INP/OBS CARE 2/55MIN Diagnoses SOB (shortness of breath) R06.02 Acute asthma exacerbation J45.901 Cough R05.9
[2023-11-18 08:29] LABS: Hematocrit (blood only) 46.9 % (37.0-47.0); Hemoglobin 15.7 g/dl (12.0-16.0); Mean Corpuscular Hemoglobin 26.2 pg (25.0-34.0); Mean Corpuscular Hgb Conc 33.5 g/dL (32.0-36.0); Mean Corpuscular Volume 78.3 fL (80.0-100.0); Mean Platelet Volume 9.7 fL (9.4-12.4); Platelet Count 790 K/uL (130-400); RDW Coefficient of Variation 19.9 % (11.5-14.5); Red Blood Count 5.99 M/uL (4.20-5.40); White Blood Count 15.17 K/ul (4.8-10.8)
[2023-11-18 08:36] LABS: BUN Creatinine Ratio 19.7 (10-20); Calcium 9.3 mg/dl (8.6-10.3); Creatinine Clr Calc Pharmacy 75.3 ml/min; Est GFR (African American) 102.3 ml/min; Est GFR (Non-African American) 88.3 ml/min; Magnesium 2.5 mg/dl (1.7-2.4)
[2023-11-18] MEDS: INSULIN ASPART PER UNIT CHARGE SC SCH (08:49)
[2023-11-18] MEDS: carvediloL 12.5 MG TAB PO SCH (08:50)
[2023-11-18] MEDS: FLUTICASONE/VILANTEROL 100/25MCG 14 PUFFS/INHALER INH SCH (08:50)
[2023-11-18] MEDS: PANTOprazole 40 MG TAB PO SCH (08:52)
[2023-11-18] MEDS: TRIAMTERENE/HCTZ 37.5/25MG TAB PO SCH (08:53)
[2023-11-18] MEDS ORDERED: methylPREDNISolone 60 MG in SYRINGE 0 ML IV SCH (09:00)
[2023-11-18] MEDS ORDERED: methylPREDNISolone 125 MG/2 ML VIAL IV SCH (09:00)
[2023-11-18] MEDS: methylPREDNISolone 40 MG in SYRINGE 0 ML IV SCH (09:07)
[2023-11-18] MEDS: AZITHROMYCIN 250 MG TAB PO SCH (12:01)
--- NOTE | 2023-11-18 13:12 | Electrocardiogram Report ---
Test Reason : Blood Pressure : / mmHG Vent. Rate : 077 BPM Atrial Rate : 077 BPM P-R Int : 154 ms QRS Dur : 086 ms QT Int : 390 ms P-R-T Axes : 031 032 053 degrees QTc Int : 441 ms Sinus rhythm with occasional Premature ventricular complexes Cannot rule out Anterior infarct , age undetermined Abnormal ECG When compared with ECG of 11-NOV-2023 04:29, QRS duration has decreased Confirmed by Henry Bell ([id number]) on 11/18/2023 1:12:28 PM Referred By: Confirmed By:Henry Bell
[2023-11-18] MEDS: ALBUT/IPRATROP 3MG/0.5MG NEB 3 ML VIAL NEB PRN (15:40)
--- NOTE | 2023-11-18 18:17 | Hospitalist Progress Note ---
Date of Service November 18, 2023 Assessment & Plan (1) Acute asthma exacerbation: Plan: Acute asthma exacerbation likely provoked by viral infection, now 2 weeks prior Recent admission 11/10 - 11/11 for same symptoms No improvement with outpatient steroids, prednisone 40 mg daily Patient received leave albuterol neb in ED, wheezing resolved Chest x-ray negative, BioFire negative, CTA chest PE protocol negative No evidence of pneumonia or infectious etiology Continue Solu-Medrol for 1 more day per patient's request. Then can transition to prednisone. Continue azithromycin as an anti-inflammatory agent as well Continue pulmonary toilet Pulmonology consult > Consider outpatient exhaled nitric oxide and potentially repeating the patient's IgE level > Cough is likely multifactorial. Certainly component of upper airway cough syndrome. Cannot rule out vocal cord dysfunction. > Recommend outpatient therapy with Flonase, saline sinus irrigation, and chlorpheniramine > Follow-up with Dr. Perez in outpatient setting at discharge (2) Thrombocytosis: Plan: Platelets 766 upon admission, with baseline around 587 At least in part elevation is reactive in nature Iron studies: Iron 35, unsaturated IBC 366 Should establish with hematology/oncology outpatient, may be candidate for hydroxyurea Plan Ordered and reviewed iron studies Educated patient on flutter valve and incentive spirometer Reviewed pulmonology's recommendations Chronic stable conditions: - Anxiety: Alprazolam ordered PRN - UC: Continue mercaptopurine. On vedolizumab every 8 weeks as outpatient 11/21 - pSVT: Carvedilol ongoing, rate controlled - GERD: continue Lansoprazole - HTN: continue Triamterene-HCTZ and Verapamil - Prediabetes: SSI ordered while on steroids, no home meds CODE STATUS: Full code Admission and Anticipated Discharge Date Admission Date: November 17, 2023 Subjective Patient seen and evaluated at bedside. She reports that she is feeling better but not back to her baseline. She feels that the congestion in her chest is loosening, however she is unable to expectorate any phlegm. She reports that the flutter valve is not making her cough. I reviewed how to use the flutter valve and incentive spirometer with the patient. Patient expressed that she was unhappy with her diet while in the hospital; diabetic diet and fluid restriction removed and now. Patient is no longer wheezing or experiencing shortness of breath. She remains anxious about this asthma exacerbation episode. She requests to remain in the hospital tonight. No additional complaints at this time. Physical Exam Physical Exam: General: No acute distress, nondiaphoretic, well-developed, well-nourished. Skin: The skin was without rashes, erythema, edema, or bruising. Cardiac: Regular rate and rhythm without murmurs gallops or rubs. Pulm: Clear to auscultation bilaterally without wheezes, rales or rhonchi. Normal respiratory effort. No respiratory distress. Abdominal: Soft, nontender, nondistended. Positive bowel sounds. Neuro: A&O x3. No focal neurological deficits. Results & Data Results & Data Vital Signs (Past 12 Hours) Vital Signs Temp Pulse Resp BP Pulse Ox O2 Del Method 11/18/23 15:43 86 16 97 Room Air 11/18/23 14:41 36.7 C 84 16 112/63 95 Room Air 11/18/23 07:45 Room Air 11/18/23 07:10 36.7 C 93 H 17 152/81 H 94 Room Air Laboratory Results Reviewed CBC Reviewed chemistries PG Care Time/CCT Total # of Minutes Spent Total Time Spent with Patient: Total time spent is greater than 50% in coordination of care (as documented) at patient's floor/unit and/or counseling patient: Coding Level of Care Code 81957 SUB INP/OBS CARE 3/50MIN Diagnoses Acute asthma exacerbation J45.901 Thrombocytosis D75.839
--- NOTE | 2023-11-18 19:22 | Billing Data ---
Date of Service November 18, 2023 Coding Level of Care Code 73779 INT INP/OBS CARE
[2023-11-18] MEDS ORDERED: AZITHROMYCIN 250 MG in DEXTROSE 5% 250 ML IV SCH (21:00)
[2023-11-18] MEDS ORDERED: MERCAPTOPURINE 50 MG TAB PO SCH (21:00)
[2023-11-18] MEDS: ASPIRIN 81 MG ECTAB PO SCH (21:12)
[2023-11-18] MEDS: VERAPAMIL HCL 120 MG TABCR PO SCH (21:12)
[2023-11-18] MEDS: MERCAPTOPURINE 50 MG TAB PO SCH (21:12)
[2023-11-18] MEDS: ALPRAZolam 0.25 MG TABLET PO PRN ×2 (21:12→21:39)
[2023-11-19] MEDS: COUGH DROP (SUGAR FREE) LOZ 24 LOZ/1 BOX BUCCAL ONE (01:39)
[2023-11-19] MEDS ORDERED: FLUTICASONE PROPIONATE NA SPR 16 GM BTL PRN (01:41)
[2023-11-19] MEDS: ALENDRONATE SODIUM 70 MG TAB PO SCH (06:26)
[2023-11-19 06:58] LABS: Basophils # (auto) 0.08 K/uL (0.00-0.20); Basophils % (auto) 0.4 %; Hemoglobin 14.9 g/dl (12.0-16.0); Immature Granulocytes # (auto) 0.28 K/uL (0.01-0.20); Immature Granulocytes % (auto) 1.5 %; Lymphocytes % (auto) 22.5 %; Mean Corpuscular Hemoglobin 26.1 pg (25.0-34.0); Mean Corpuscular Hgb Conc 32.4 g/dL (32.0-36.0); Mean Corpuscular Volume 80.6 fL (80.0-100.0); Mean Platelet Volume 8.9 fL (9.4-12.4); Monocytes # (auto) 1.37 K/uL (0.11-0.59); Monocytes % (auto) 7.2 %; Neutrophils # (auto) 12.91 K/uL (1.40-6.50); Neutrophils % (auto) 67.4 %; Nucleated RBC # (auto) 0.02 K/uL (0.00-0.12); Nucleated RBC % (auto) 0.1 %; Platelet Count 735 K/uL (130-400); RDW Coefficient of Variation 19.7 % (11.5-14.5); RDW Standard Deviation 54.4 fL (36.4-46.3); Red Blood Count 5.71 M/uL (4.20-5.40); White Blood Count 19.14 K/ul (4.8-10.8)
[2023-11-19 07:17] LABS: Calcium 8.9 mg/dl (8.6-10.3); Creatinine Clr Calc Pharmacy 52.3 ml/min; Est GFR (African American) 69.4 ml/min; Est GFR (Non-African American) 59.8 ml/min; Potassium 4.9 mmol/L (3.5-5.1)
[2023-11-19] MEDS ORDERED: BENZONATATE 100 MG CAPSULE PO PRN (07:39)
--- NOTE | 2023-11-19 07:40 | Pulmonology Progress Note ---
Date of Service November 19, 2023 Assessment & Plan (1) SOB (shortness of breath): (2) Acute asthma exacerbation: (3) Cough: Plan Impression: 73-year-old female with mild airflow obstruction on PFTs admitted with recurrent cough failing prednisone. She endorses postnasal drip and likely has a component of upper airway cough syndrome versus vocal cord dysfunction. Her asthma appears reasonably well-controlled Recommendations: 1. Asthma: Transition to prednisone 20 mg a day for 5 days. Complete 5 days of azithromycin as an anti-inflammatory agent as well. No evidence of pneumonia or infectious etiology. Consider outpatient exhaled nitric oxide and potentially repeating the patient's IgE level. 2. Cough: Multifactorial. Certainly components of upper airway cough syndrome may be at play. Cannot rule out vocal cord dysfunction as well. Advised the patient that I would recommend chlorpheniramine 4 mg twice a day as well as Flonase twice a day and saline sinus irrigation (not saline nasal spray) twice a day. These are not available in the hospital and can only be initiated in the outpatient setting. They are all [id number] and prescriptions are not required. Would recommend continuing these therapy for at least 4 weeks until she is followed up in pulmonary. In the meantime she can try Tessalon on an as- needed basis 3. Reflux: Continue medications. Patient does not have an acute indication for remaining in the hospital at this point in time. Advised her that she can get up and move around. If she does well, discharge would be appropriate. She already has follow-up scheduled in the pulmonary clinic. Pulmonary will sign off. Feel free to contact us with questions or concerns Admission and Anticipated Discharge Date Admission Date: November 17, 2023 Subjective Patient seen and examined. EMR reviewed. The patient states she had an episode of cough last evening. She relates this to a change in temperature in the room and potential humidity changes. She does endorse postnasal drip. She is the Flonase which she states was effective in alleviating her symptoms. She feels that most of her symptoms are emanating from her throat. Has not had any chest tightness or wheezing. No fevers chills night sweats or other constitutional symptoms Review of Systems 2 Review of Systems: All systems reviewed & are unremarkable except as noted in Subjective Physical Exam 2 Constitutional: WD/WN, vitals as above Neck: trachea midline, no thyromegaly Respiratory: normal respiratory effort, lungs clear to auscultation Cardiovascular: RRR, no murmur, no edema Gastrointestinal (Abdomen): normal bowel sounds, soft, nontender, no hepatosplenomegaly Musculoskeletal: Extremities: extremities normal to inspection Skin: no rashes, warm and dry Lymphatic: no cervical lymphadenopathy Results & Data Results & Data Vital Signs (Past 12 Hours) Vital Signs Temp Pulse Resp BP Pulse Ox O2 Del Method 11/19/23 07:07 36.8 C 58 L 16 118/69 95 Room Air 11/19/23 01:13 74 18 93 Room Air 11/18/23 21:40 Room Air 11/18/23 20:42 71 17 95 Room Air 11/18/23 19:41 36.4 C L 77 16 129/73 94 Room Air Laboratory Results 11/19/23 06:39 11/19/23 06:39 PG Care Time/CCT Total # of Minutes Spent Total Time Spent with Patient: Total time spent is greater than 50% in coordination of care (as documented) at patient's floor/unit and/or counseling patient: Coding Level of Care Code 65856 SUB INP/OBS CARE 2/35MIN Diagnoses SOB (shortness of breath) R06.02 Acute asthma exacerbation J45.901 Cough R05.9
[2023-11-19] MEDS: predniSONE 20 MG TAB PO SCH (10:12)
--- NOTE | 2023-11-19 16:02 | Discharge Summary ---
Discharge Summary Date of Service November 19, 2023 Principal Dx & Hospital Course #1 = Principal Diagnosis (1) Acute asthma exacerbation: Acute asthma exacerbation likely provoked by viral infection, now 2 weeks prior Recent admission 11/10 - 11/11 for same symptoms No improvement with outpatient steroids, prednisone 40 mg daily Patient received leave albuterol neb in ED, wheezing resolved Chest x-ray negative, BioFire negative, CTA chest PE protocol negative No evidence of pneumonia or infectious etiology Patient endorses postnasal drip and likely has a component of upper airway cough syndrome versus vocal cord dysfunction. Pulmonology consult -- Consider outpatient exhaled nitric oxide and potentially repeating the patient's IgE level Patient responded well with Solu-Medrol, azithromycin, pulmonary toilet while hospitalized. Plan on discharge: Prednisone 20 mg daily x 5 days Azithromycin 250 mg daily x 5 days Chlorpheniramine 4 mg twice daily for at least 4 weeks Flonase twice daily for at least 4 weeks Saline sinus irrigation twice daily for at least 4 weeks Follow-up with pulmonology outpatient (2) Thrombocytosis: Platelets 766 upon admission, with baseline around 587 At least in part elevation is reactive in nature Iron studies: Iron 35, unsaturated IBC 366 Should establish with hematology/oncology outpatient, may be candidate for hydroxyurea Plan Ordered and reviewed iron studies Educated patient on flutter valve and incentive spirometer Reviewed pulmonology's recommendations Chronic stable conditions: - Anxiety: Alprazolam ordered PRN - UC: Continue mercaptopurine. On vedolizumab every 8 weeks as outpatient 11/21 - pSVT: Carvedilol ongoing, rate controlled - GERD: continue Lansoprazole - HTN: continue Triamterene-HCTZ and Verapamil - Prediabetes: SSI ordered while on steroids, no home meds CODE STATUS: Full code Notes For Next Care Provider Consider outpatient exhaled nitric oxide and repeat IgE level Should establish with hematology/oncology outpatient due to thrombocytosis, may be candidate for hydroxyurea Admission HPI Per Admitting Provider Cathy is a 73F w/ PMH of HTN, HLD, GERD, anxiety, asthma, paroxysmal SVT, ulcerative colitis, recurrent UTIs, and prediabetes who presents with concern of ongoing dyspnea and cough. Patient notes that three weeks ago she was on vacation with friends. During their trip, one of their friends got sick. Upon return home (last week) patient and her developed URI symptoms; cough, congestion, fevers, chills. Patient notes her symptoms progressed and she saw a provider 11/08 who diagnosed her with viral bronchitis and prescribed her Azithromycin. Patient was subsequently admitted 11/10 for an asthma exacerbation and was discharged 11/11 with Doxycycline and Prednisone 20 mg. Patient subsequently saw her associate agent insurance sales 11/14 and was again noted to have an acute asthma exacerbation in the setting of viral bronchitis. Prednisone was increased to 40 mg daily at this time and Breo was changed to Breztri. Patient notes that she presented to the hospital tonight because she was not feeling any better. She continues to have a cough that feels like its sitting in her throat and wheezing. She called her Implementation Analyst's office and they recommended that she present to the hospital as she had not responded to outpatient steroids. Patient denies any double sickening. Notes that her anxiety/insomnia increases with steroid use. She has continued to take antihistamine and decongestants at home. Admission Exam Per Admitting Provider Gen: NAD, alert, interactive HEENT: Supple, no LAD, no thyromegaly, no JVD Resp:Non-labored, no wheezing/rhonchi/rales, restricted air movement bilaterally CV:RRR, normal S1/S2, no M/R/G Abd: Soft, non-distended, no TTP, normoactive bowels, no masses Extr: 2+ dp bilaterally, no edema Skin: No rashes lesions or erythema Discharge Exam General: No acute distress, nondiaphoretic, well-developed, well-nourished. Skin: The skin was without rashes, erythema, edema, or bruising. Cardiac: Regular rate and rhythm without murmurs gallops or rubs. Pulm: Clear to auscultation bilaterally without wheezes, rales or rhonchi. Normal respiratory effort. No respiratory distress. Abdominal: Soft, nontender, nondistended. Positive bowel sounds. Neuro: A&O x3. No focal neurological deficits. Updated Medication List Medication Instructions Recorded Confirmed Type loratadine 10 mg tablet (Claritin) 10 mg PO DAILY PRN Congestion 08/07/18 11/17/23 History aspirin 81 mg capsule 81 mg PO QPM 03/23/21 11/17/23 History Breo Ellipta 100 mcg-25 mcg/dose 1 inh inhalation QAM #3 Inhalers 12/15/22 11/17/23 Rx powder for inhalation (fluticasone furoate-vilanterol) mercaptopurine 50 mg tablet 75 mg (1.5 x 50 mg) PO HS #135 tabs 03/10/23 11/17/23 Rx albuterol sulfate 90 mcg/actuation 1 - 2 puff inhalation Q4 PRN 03/16/23 11/17/23 Rx aerosol inhaler (ProAir HFA) Shortness Of Breath Or Wheezing #18 grams carvedilol 12.5 mg tablet 12.5 mg PO BID #180 tabs 06/07/23 11/17/23 Rx lansoprazole 30 mg capsule,delayed 30 mg PO QAM #90 caps 06/19/23 11/17/23 Rx release triamterene 37.5 0.5 tab PO QAM 07/25/23 11/17/23 History mg-hydrochlorothiazide 25 mg tablet verapamil 120 mg 24 hr 120 mg PO HS 07/25/23 11/17/23 History capsule,extended release mecobalamin (vitamin B12) 1,000 1,000 mcg PO DAILY 08/07/23 11/17/23 History mcg lozenges vedolizumab 300 mg intravenous 300 mg IV Q8WK #1 ea 09/12/23 11/17/23 Rx solution (Entyvio) alendronate 70 mg tablet 70 mg PO WK 11/11/23 11/17/23 History alprazolam 0.25 mg tablet 0.25 - 0.5 mg PO DAILY PRN Anxiety 11/11/23 11/17/23 History with flying cholecalciferol (vitamin D3) 25 25 mcg PO DAILY 11/11/23 11/17/23 History mcg (1,000 unit) tablet (Vitamin D3) nebulizers (AeroEclipse II #1 ea 11/15/23 11/15/23 Rx Nebulizer) peak flow meter #1 ea 11/15/23 11/15/23 Rx azithromycin 250 mg tablet 250 mg PO QAM #5 tabs 11/19/23 Rx benzonatate 200 mg capsule 200 mg PO TID PRN cough #30 caps 11/19/23 Rx prednisone 20 mg tablet 20 mg PO DAILY 5 days #0 tabs 11/19/23 11/17/23 Rx Hospital Stay Data Consultations 11/17/23 22:16 ED Decision to Admit Stat 11/17/23 23:20 Consult Pulmonology Routine Diagnostic Imagining Performed Chest X-Ray 11/17/23 17:05 XR chest 1V not portable CLINICAL HISTORY: Chest pain, nonspecific TECHNIQUE: Single frontal radiograph of the chest was obtained. Comparison: Comparison is made to chest radiograph 11/11/2023 FINDINGS: No lines and tubes are seen. The cardiomediastinal silhouette is normal. The lungs are clear. No evidence of pleural effusion or pneumothorax. IMPRESSION: No acute chest disease. ACT 112: Negative or not required by law. Electronically signed by: Eder Marte M.D. 11/17/2023 5:55 PM Chest CTA 11/17/23 19:37 Exam(s): CTA CHEST IV Amt: 118 ml [id number] EXAM: CT Angiography Chest With Intravenous Contrast CLINICAL HISTORY: sob, elevated bnp, r/o PE. TECHNIQUE: Axial computed tomographic angiography images of the chest with intravenous contrast. CTDI is 74 mGy and DLP is 1379.47 mGy-cm. Automated exposure control was utilized for the study. A dose lowering technique was utilized adhering to the principles of ALARA. MIP reconstructed images were created and reviewed. COMPARISON: CTA chest dated 11/11/2023 FINDINGS: Pulmonary arteries: Accounting for respiratory artifact, there is no definite evidence for pulmonary embolism. Aorta: No acute findings. No thoracic aortic aneurysm. Lungs: Curvilinear changes noted involving the bilateral lower lobes, right greater than left and inferior lingular segments. No focal airspace consolidation. No definitive irreversible fibrotic changes. The lungs are moderately distended without hyperexpansion. The previously noted subcentimeter pulmonary nodule in the right lower lobe is not clearly delineated with curvilinear changes in this region. Pleural space: Unremarkable. No significant effusion. No pneumothorax. Heart: Unremarkable. No cardiomegaly. No significant pericardial effusion. Bones/joints: No acute fracture. No dislocation. Soft tissues: Unremarkable. Lymph nodes: Unremarkable. No enlarged lymph nodes. IMPRESSION: 1. Accounting for respiratory artifact, there is no definite evidence for pulmonary embolism. 2. Curvilinear changes noted involving the bilateral lower lobes, right greater than left and inferior lingular segments. No focal airspace consolidation. No pleural effusion or pneumothorax. 3. The previously noted subcentimeter pulmonary nodule in the right lower lobe is not clearly delineated with curvilinear changes in this region. Electronically signed by: Atilio Hernandez MD 11/17/23 22:09 PM Pending Results Patient Have Any Pending Studies at Discharge: No Discharge Instructions Given to Patient (Per Discharging Provider) Conor Aguilar were admitted to the hospital due to an acute asthma exacerbation provoked by recent viral illness and feeling outpatient prednisone course. He had a chest x-ray, respiratory panel, and CTA of your chest which were all negative. There has been no evidence of pneumonia or infectious etiology. You were treated with IV steroids and other pulmonary support while in the hospital. Upon discharge from the hospital: * Take prednisone 20 mg daily x 5 days. Since you have this at home, no prescription for this was sent to the pharmacy. > This is to help with the asthma exacerbation. * Take azithromycin 250 mg daily x 5 days. This prescription has been sent to your pharmacy. > This is to help with the asthma exacerbation. This will function as an anti-inflammatory agent as well. * Take Tessalon Perles on an as-needed basis for cough. You can take one capsule every 8 hours as needed. > This prescription has been sent to your pharmacy. * Take chlorphentermine 4 mg twice daily for at least 4 weeks. This is an sjio-gfh-rwthozn medication, no prescription required. > This is to help with your cough. This is an antihistamine medication. * Take Flonase twice daily for at least 4 weeks. This is an hnmg-viv-yougggy medication, no prescription required. > This is to help with your cough. * Use saline sinus irrigation twice daily for at least 4 weeks. This is an bnfw-ujw-qvyshai medication, no prescription required. > This is different than saline nasal spray. This is to help with your cough. * Follow-up with pulmonology. Your appointment is scheduled for 12/08/2023 at 11:30 AM. Please return to the hospital if you experience any of the following: Asthma attack not relieved by rescue inhaler, shortness of breath, difficulty breathing, chest tightness/pain, confusion, severe sweating, rapid heart rate, pale/cold/moist skin, lightheadedness, dizziness, or fainting. It was a pleasure taking care of you while you were in the hospital, Serenity Gross, PA-C Total Time Total Time Spent Total Time Spent (In Minutes): Greater than 30 minutes spent completing this discharge process including direct patient care, medication reconciliation, documentation, review of labs and images, and coordination of care. Coding Level of Care Code 62603 INP/OBS DISCH >30 MIN Diagnoses Acute asthma exacerbation J45.901 Thrombocytosis D75.839
== END 2023-11-19 12:26 | disposition home or self-care (01) | DRG 202 ==
LOC: SUATTDRO → ED 16:58 → SUATTDRO 23:20 → 3N 23:20